=== PATIENT | male | born 1955 | race Caucasian/White ===

== ENCOUNTER → 2021-01-25 08:25 | Outpatient (REF) | payer OTHER, SELFPAY ==
--- NOTE | ~2021-01-25 | NM_ITS ---
Exercise Myocardial perfusion study Indication: Abnormal EKG to evaluate for myocardial ischemia Technique: The patient was brought in for an exercise perfusion study on 01/25/2021. Patient performed exercise as per Timi protocol and was injected 30 mCi of sestamibi was given intravenously one target HR was achieved. Images were obtained using the SPECT gamma camera interlaced with the gating device. Images were obtained in supine position. Resting perfusion study was performed on 01/26/2021. Patient was administered 30 mCi of sestamibi intravenously at rest. Images were then obtained in supine position. Images obtained with and without CT attenuation. Total DLP 129 mGy-cm. Images were processed with the software and compared side to side in short axis, horizontal long axis and vertical long axis views. Findings: The stress perfusion study showed non attenuated images show mildly reduced uptake in the basal and mid anterolateral wall of the LV myocardium. Remainder of the LV myocardium is normally perfused. Attenuation corrected images show mildly reduced uptake in the apex of the LV myocardium.. The gated study shows normal LV systolic function with calculated LVEF of 73%. LV cavity is normal in size. The gated study shows normal systolic wall thickening and contraction of all segments. There is no transient ischemic dilation. Resting study shows non attenuated images show normal uptake of radiotracer in all segments of LV myocardium. Impression corrected images show mildly reduced uptake in the apex of the LV myocardium.. Gating at rest reveals normal systolic wall motion with ejection fraction at 58%. The findings are consistent with no clear reversible defect on attenuated corrected images. Nonattenuated images show reversible defect and basal inferolateral wall, most likely soft tissue attenuation artifact. NM/NM florecita perf SPECT rest & str Impression: 1. Likely normal myocardial perfusion 2. Gated LVEF is 58% 3. Transient ischemic dilatation not present Stress EKG is negative for ischemia
--- NOTE | 2021-01-25 08:32 | CA_ITS ---
Acquisition Time: 2021-01-25 08:35:25 Total Exercise Time: 00:07:50 Test Indications: Abnormal ECG Medications: SEE CHART Protocol: ANNIE Max HR: 134 BPM 87% of Pred: 154 BPM Max BP: 164/090 mmHG Max Work Load: 9.8 METS Exercise stress test using Annie protocol, total of 7 min 50 sec. METS 9.80, TAPHR up to 86%. Pt tolerated well, denies any anginal sx. EKG with occ. PVC's. No ischemic changes seen during exercise or in recovery. Nuclear images to follow. Normotensive response to exercise. Test reviewed with Dr. Silver Referred By: Rafael Plascencia Overread By: Cara Keen NP
== END ==
LOC: HO.CARD 08:25
PROVIDERS: PCP Family Medicine; Visit Provider Internal Medicine Cardiovascular Disease
DX: R94.31 Abnormal electrocardiogram [ECG] [EKG] (principal); M79.602 Pain in left arm
CPT/HCPCS: 78452; 93016; 93017; 93018; A9500

== ENCOUNTER → 2021-02-15 11:18 | Outpatient (BNVA) | payer MEDICARE, SELFPAY | PROVIDERS: PCP Family Medicine; Referring Provider Family Medicine; Visit Provider Surgery | DX: K40.91 Unilateral inguinal hernia, without obstruction or gangrene, recurrent (principal) | CPT/HCPCS: 99212 ==

== ENCOUNTER 2021-02-28 11:19 | Outpatient (REF) | payer MEDICARE, SELFPAY ==
--- NOTE | ~2021-02-28 | US_ITS ---
EXAMINATION: US ABDOMEN COMPLETE CLINICAL INFORMATION: Abdominal pain. COMPARISON: CT of the abdomen and pelvis January 2007 TECHNIQUE: Real-time imaging of the abdominal viscera. FINDINGS: PANCREAS: Normal. ABDOMINAL AORTA: The proximal, mid, and distal segments are normal in caliber. INFERIOR VENA CAVA: Visualized portions are normal. LIVER: There is a 7 x 5 x 5 mm cyst in the left lobe and 1.3 x 0.9 x 1.2 cm cyst in the right lobe. The liver contour is normal. Parenchymal echogenicity is normal. There is no intrahepatic biliary duct dilatation seen. GALLBLADDER: Normal. The gallbladder is physiologically distended without evidence of stones, sludge, polyps, wall thickening or pericholecystic fluid. COMMON BILE DUCT: Normal in caliber measuring 0.4 cm in diameter. RIGHT KIDNEY: There is a 1.1 x 0.8 x 1.2 cm echogenic lesion in the upper pole of the right kidney questionable for an angiomyolipoma. No hydronephrosis. No renal calculi. The kidney measures 11.8 cm in maximum dimension. LEFT KIDNEY: There is a 1.6 x 1.4 x 1.6 cm cyst in the lower pole. No hydronephrosis. No renal calculi . The kidney measures 10.9 cm in maximum dimension. SPLEEN: Normal. The spleen measures 11.2 cm in maximum dimension. FREE FLUID: None. US/US abdomen complete IMPRESSION: Small liver and left renal cysts. 1 cm echogenic lesion in the right kidney questionable for an angiomyolipoma. This is not seen on previous CT from 2006. Follow-up CT or MRI of the kidneys should be considered.
== END 2021-02-28 11:20 | disposition home or self-care (01) ==
LOC: HO.US 11:19
PROVIDERS: Visit Provider Nurse Practitioner Primary Care
DX: R10.9 Unspecified abdominal pain (principal)
CPT/HCPCS: 76700

== ENCOUNTER 2021-03-05 06:03 | Day surgery (SDC) | payer MEDICARE, SELFPAY ==
[2021-02-26 15:50] VITALS: BMI 24.0
--- NOTE | 2021-02-27 10:32 | P.CONAN_ITS ---
Documented by User: Tammie Sifuentes 03/01/21 09:30 HPI - Anesthesia Eval Consult details Narrative: 66yo M for Right recurrent Hernia Repair Inguinal with mesh PMFSH Active Problems Active Problems: All Active Problems (Updated 02/26/21 @ 15:49 by Sammi Riggs) Recurrent right inguinal hernia (Acute) Past Medical History Medical History (Updated 03/05/21 @ 06:42 by Lori oMreland RN) Anxiety BPH (benign prostatic hyperplasia) COVID-19 vaccine series completed Depression Epilepsy Essential hypertension Heart murmur Kidney lesion Obstructive sleep apnea Family History Family History Father Prostate cancer Lung cancer Mother Breast cancer Surgical History Surgical History (Updated 02/26/21 @ 15:49 by Sammi Riggs) History of bilateral inguinal hernia repair History of colonoscopy History of excision of lesion (10/21/11) History of eyelid surgery History of prostate biopsy Social History Social History Are you a primary childcare center director to a significant other at home: No Do you presently have visiting nurse or other home services: No Alcohol intake: current Alcohol intake frequency: holidays/special occasions only Patient Tobacco Use Status: Never used Tobacco Use of substances other than those prescribed or required for medical reasons: No Have you been hit, kicked, punched, or otherwise hurt by someone within the past year? If so, by whom?: No Are you DNR?: No Advance Directives: No Advance Directives Information Provided: No Advance Directives on File: No Recently lost weight without trying: No Eating poorly because of decreased appetite: No Nutrition Risks: No Nutritional Risk Meds Allergies Allergy/AdvReac Type Severity Reaction Status Date / Time No Known Allergies Allergy Verified 03/05/21 06:09 Home Medications Medication Instructions Recorded Confirmed Last Taken Type amlodipine 5 mg tablet 5 mg PO DAILY 02/15/21 03/05/21 03/05/21 05:30 History aspirin 81 mg tablet,delayed 81 mg PO DAILY 02/15/21 02/26/21 Unknown History release emtricitabine 200 mg-tenofovir 1 tab PO DAILY 02/15/21 02/26/21 Unknown History alafenamide fumarate 25 mg tablet Exam Exam Date and Time: February 27, 2021 1032 Height,Weight and Vital Signs: Height 5 ft 11 in Weight 78.018 kg Narrative Narrative: NM florecita perf SPECT rest & str 01/2021 Impression: 1. Likely normal myocardial perfusion 2. Gated LVEF is 58% 3. Transient ischemic dilatation not present Stress EKG is negative for ischemia EKG 2018 SB @ 55 with SA LAD ECHO 09/2020 Nml LV function LVEF >70% Aortic valve is bicuspid. Mild AR. No No real change from previous echo (09/2019) Assessment and Plan Assessment Anesthesia Assessment: Chart Reviewed Documented by User: Hiral Jackson 03/05/21 07:06 PMFSH Past Medical History Medical History (Updated 03/05/21 @ 06:42 by Lori Moreland RN) Anxiety BPH (benign prostatic hyperplasia) COVID-19 vaccine series completed Depression Epilepsy Essential hypertension Heart murmur Kidney lesion Obstructive sleep apnea Family History Family History Father Prostate cancer Lung cancer Mother Breast cancer Surgical History Surgical History (Updated 02/26/21 @ 15:49 by Sammi Riggs) History of bilateral inguinal hernia repair History of colonoscopy History of excision of lesion (10/21/11) History of eyelid surgery History of prostate biopsy Social History Social History Are you a primary childcare center director to a significant other at home: No Do you presently have visiting nurse or other home services: No Alcohol intake: current Alcohol intake frequency: holidays/special occasions only Patient Tobacco Use Status: Never used Tobacco Use of substances other than those prescribed or required for medical reasons: No Have you been hit, kicked, punched, or otherwise hurt by someone within the past year? If so, by whom?: No Are you DNR?: No Advance Directives: No Advance Directives Information Provided: No Advance Directives on File: No Recently lost weight without trying: No Eating poorly because of decreased appetite: No Nutrition Risks: No Nutritional Risk Meds Allergies Allergy/AdvReac Type Severity Reaction Status Date / Time No Known Allergies Allergy Verified 03/05/21 06:09 Home Medications Medication Instructions Recorded Confirmed Last Taken Type amlodipine 5 mg tablet 5 mg PO DAILY 02/15/21 03/05/21 03/05/21 05:30 History aspirin 81 mg tablet,delayed 81 mg PO DAILY 02/15/21 02/26/21 Unknown History release emtricitabine 200 mg-tenofovir 1 tab PO DAILY 02/15/21 02/26/21 Unknown History alafenamide fumarate 25 mg tablet Exam Airway Mallampati Class: II TM Dist: >3cm Neck ROM: Full Heart: rrr Lungs: cta Assessment and Plan Assessment Anesthesia Assessment: Anesthesia Plan Discussed and Chart Reviewed Final Anesthetic Review NPO: Yes (Sip water with med) ASA Class: III Final Preanesthetic Review: No Changes in Pt Med Stat and Consent Obtained/Reviewed Patient Risk: Intermediate Procedure Risk: Intermediate Anesthetic Plan Anesthetic Plan: GA Disposition: Standard PACU
[2021-03-05] VITALS (8 sets, daily range): BP systolic 98–135; BP diastolic 50–85; PULSE 55–62; RESP 12–20; TEMP 36.4–37.2; O2SAT 96–98
--- NOTE | 2021-03-05 | ECG_ITS ---
Test Reason : HTN, murmur, ALEC, preop Blood Pressure : / mmHG Vent. Rate : 064 BPM Atrial Rate : 064 BPM P-R Int : 172 ms QRS Dur : 082 ms QT Int : 428 ms P-R-T Axes : 050 -35 050 degrees QTc Int : 441 ms Normal sinus rhythm Left axis deviation Minimal voltage criteria for LVH, may be normal variant Septal infarct , age undetermined Abnormal ECG When compared to the previous EKG of Criteria for septal infarct present. Referred By: Tammie Sifuentes Electronically Signed By:Louie Pacheco
[2021-03-05] MEDS: Lactated Ringers 1,000 ML 100 ML IVCONT (06:46)
--- NOTE | 2021-03-05 07:30 | MHC.SHP ---
Pre-Procedural Eval Section A The patient is an INPATIENT: No Changes since office visit: Yes Patient answered all questions; No Cold of Flu in the past 2 weeks, No New Medical Problems and No Changes in Medication The History & Physical has been completed within 30 days and I have reviewed it.: Yes Section B Chief Complaint: unilateral inguinal hernia Allergies: Allergies Allergy/AdvReac Type Severity Reaction Status Date / Time No Known Allergies Allergy Verified 03/05/21 06:09 Plan Diagnosis/Plan: Unchanged I have reviewed the history and physical and performed a pertinent physical examination on my patient. No changes have occurred unless specified.
--- NOTE | 2021-03-05 09:02 | P.OP_ITS ---
Operative Note Operative Note Date of Service: 03/05/21 Narrative: Preoperative diagnosis: Recurrent Right inguinal hernia Postoperative diagnosis: Same Procedure: Repair of recurrent right inguinal hernia with mesh Surgeon: David Alfredo MD Leather Heel Breaster: No physician Anesthesia: General LMA Indications for procedure: 66-year-old male presenting with a previous history of a bilateral laparoscopic hernia repair now presenting with a large lump in the right groin which this is in size with lifting and straining. On examination the patient has a large right inguinal hernia increases with Valsalva maneuvers and reduces with light pressure. Operative findings: Large indirect right inguinal hernia repaired with a medium PHS mesh Specimen: Hernia sac Estimated blood loss: 10 mL Complications: None Procedure details: Patient was brought to the OR and placed in a supine position. After administering general anesthesia the patient's abdomen was prepped with ChloraPrep and draped in a sterile fashion. A surgical time-out was called the consent confirmed. Patient received preoperative antibiotics and Venodyne boots were in place. Local anesthesia consisting of 0.25% Sensorcaine with epinephrine was then infiltrated over the right inguinal ligament. Incision was then made with a scalpel carried out through subcutaneous tissue. Incision was carried down past Jerad's fashion up to the external oblique aponeurosis. Additional anesthesia was infiltrated below the external oblique aponeurosis. This was then incised with a scalpel widened with the Metzenbaum scissors. Spermatic cord was then dissected free from the inguinal canal where there was some scar tissue associated with the previous repair. The floor of the inguinal canal was found to be intact without a hernia. Fibers of the cremasteric muscle were then and a hernia sac identified. This freed down to the internal ring. The sac was opened and a sliding component noted within the hernia sac. A pursestring was then placed into the sac and ligated. The redundant sac was excised and sent as a pathology specimen. The sac was then plicated to the internal oblique aponeurosis and muscle using the 0 Polysorb suture and a free needle. A medium PHS mesh was then obtained. The circular underlay was placed into the indirect space at the internal ring and deployed within the preperitoneal space. The overlay was then secured to the pubic tubercle, shelving edge of the inguinal ligament, and conjoined tendon using 0 Polysorb sutures. A slit was made at the mesh at the internal ring and wrapped around the spermatic cord at the internal ring. This was then secured to the shelving edge of the inguinal ligament using the 0 Polysorb suture. The internal ring was noted to be loose enough to allow the tip of an index finger to pass. Wounds were then irrigated and suctioned dry. External oblique aponeurosis was then reapproximated using a running 2 0 Polysorb suture. Additional local was infiltrated at this time into the subcutaneous tissue. Jerad's fascia and dermis reapproximated using interrupted 3-0 Polysorb sutures. Skin was then closed using a running subcuticular 4-0 Polysorb suture. Steri-Strips 2 x 2 gauze and Tegaderm were then applied. The patient tolerated the procedure well. Sponge, instrument, and needle counts were reported as correct. The patient was transferred to PACU in stable condition.
== END 2021-03-05 10:50 | disposition home or self-care (01) ==
PROVIDERS: PCP Nurse Practitioner Primary Care; Visit Provider Surgery
PROC: (CPT 49520; principal; 2021-03-05 07:30)
DX: K40.91 Unilateral inguinal hernia, without obstruction or gangrene, recurrent (principal); G40.909 Epilepsy, unspecified, not intractable, without status epilepticus; I10 Essential (primary) hypertension; G47.33 Obstructive sleep apnea (adult) (pediatric); N40.0 Benign prostatic hyperplasia without lower urinary tract symptoms; F32.9 Major depressive disorder, single episode, unspecified; Z79.82 Long term (current) use of aspirin; Z79.899 Other long term (current) drug therapy
CPT/HCPCS: 49520; 88302; 93005; C1781; J0690; J1100; J2250; J2405; J3010

== ENCOUNTER → 2021-03-13 09:53 | Outpatient (BNVA) | payer MEDICARE, SELFPAY | PROVIDERS: PCP Family Medicine; Referring Provider Family Medicine; Visit Provider Surgery | DX: Z48.815 Encounter for surgical aftercare following surgery on the digestive system (principal); Z87.19 Personal history of other diseases of the digestive system | CPT/HCPCS: 99212 ==

== ENCOUNTER → 2021-04-17 10:21 | Outpatient (BNVA) | payer MEDICARE, SELFPAY | PROVIDERS: PCP Family Medicine; Referring Provider Family Medicine; Visit Provider Surgery | DX: Z48.815 Encounter for surgical aftercare following surgery on the digestive system (principal); Z87.19 Personal history of other diseases of the digestive system | CPT/HCPCS: 99212 ==

== ENCOUNTER 2021-05-14 10:23 | Outpatient (REF) | payer MEDICARE, SELFPAY ==
--- NOTE | ~2021-05-14 | CT_ITS ---
EXAMINATION: CT ABDOMEN AND PELVIS WITHOUT AND WITH CONTRAST CLINICAL INFORMATION: Small liver and renal cysts. COMPARISON: US abdomen 02/28/2021. CT abdomen 01/30/2007. TECHNIQUE: Multidetector volumetric imaging was performed of the abdomen and pelvis before and after the IV administration of 85 mL of Omnipaque 350 intravenous contrast. Sagittal and coronal reformatted images were obtained on the technologist's workstation. This CT examination was performed using dose optimization techniques as appropriate, variously including the following: *Automated exposure control *Adjustment of mA and/or kV according to patient size (this includes techniques or standardized protocols for targeted exams where dose is matched to indication/reason for exam; i.e. extremities or head) *Use of iterative reconstruction technique DLP: 1297 mGy-cm FINDINGS: LUNG BASES: The visualized lung bases are unremarkable. LIVER, GALLBLADDER, AND BILIARY TREE: There are small scattered liver cysts, as noted on the prior ultrasound. There is no biliary duct dilatation. The gallbladder is unremarkable with no evidence of radiopaque gallstones, gallbladder wall thickening, or obvious pericholecystic inflammatory changes. PANCREAS: Unremarkable. SPLEEN: Unremarkable. ADRENAL GLANDS: Unremarkable. KIDNEYS AND URETERS: There is a small focal fatty lesion in the posterior aspect of the mid to upper pole of the right kidney. This could represent a small angiomyolipoma or perirenal fat extending into a focal scar. This may correspond to the ultrasound finding. There are no suspicious lesions in the right kidney. There is no hydronephrosis. There is a 1.6 cm hyperdense exophytic cyst involving the lower pole of left kidney corresponding to the simple-appearing cyst identified by ultrasound, consistent with a hemorrhagic cyst. There may be an additional tiny hemorrhagic cyst in the superior pole of the left kidney not clearly identified on the ultrasound. BLADDER: Unremarkable. GASTROINTESTINAL TRACT: There is scattered colonic diverticulosis without evidence of diverticulitis. The appendix is not clearly visualized. The small bowel and stomach are unremarkable. ABDOMINAL WALL: There is soft tissue thickening in the region of the right inguinal canal of uncertain significance. Consider postoperative change. LYMPH NODES: Normal. VASCULAR: Unremarkable. PELVIC VISCERA: There is an enlarged lobulated prostate gland. OSSEOUS STRUCTURES: There is a right convex lumbar scoliosis with [id number] multilevel degenerative disc disease. There is multilevel bilateral facet arthropathy. There is some mild osteoarthritis of both hips. There are no suspicious osseous lesions. CT/CT abdomen pelvis wo/w con IMPRESSION: 1. Small focal fatty lesion in the right kidney which may represent a small angiomyolipoma or perirenal fat extending into a focal scar, likely corresponding to the ultrasound finding. No suspicious right kidney lesions. 2. Hypodense left renal cysts. 3. Colonic diverticulosis without diverticulitis. 4. Soft tissue thickening in the region of the right inguinal canal of uncertain significance. Consider postoperative change. Correlate clinically. 5. Enlarged lobulated prostate gland.
[2021-05-14 12:20] LABS: Blood Urea Nitrogen 17 mg/dL (9-16); Estimated Glomerular Filt Rate > 60
[2021-05-14] MEDS: iohexoL 350 MG/ML 100 ML INFUS..BTL IV (13:33)
== END 2021-05-14 10:24 | disposition home or self-care (01) ==
LOC: HO.CT 10:23
PROVIDERS: PCP Family Medicine; Visit Provider Nurse Practitioner Primary Care
DX: N28.1 Cyst of kidney, acquired (principal); R93.421 Abnormal radiologic findings on diagnostic imaging of right kidney
CPT/HCPCS: 36415; 74178; 82565; 84520; Q9967

== ENCOUNTER 2022-03-14 17:40 | Outpatient (REF) | payer MEDICARE, SELFPAY | END 2022-03-14 17:41 | disposition home or self-care (01) | LOC: HO.LNP 17:40 | PROVIDERS: Visit Provider Internal Medicine | DX: Z13.89 Encounter for screening for other disorder (principal) | CPT/HCPCS: 87071 ==

== ENCOUNTER → 2022-08-26 13:45 | Outpatient (BNVA) | payer MEDICARE, SELFPAY | PROVIDERS: PCP Family Medicine; Visit Provider Physician Assistant | DX: Z01.818 Encounter for other preprocedural examination (principal); K63.5 Polyp of colon; R01.1 Cardiac murmur, unspecified | CPT/HCPCS: 99202 ==

== ENCOUNTER 2023-05-14 07:15 | Day surgery (SDC) | payer OTHER, SELFPAY ==
[2023-05-12 08:52] VITALS: BMI 24.5
--- NOTE | 2023-05-12 12:17 | P.CONAN_ITS ---
Documented by User: Tammie Sifuentes NP 05/12/23 12:17 HPI - Anesthesia Eval Consult details Narrative: 68yo M for Colonoscopy PMFSH Active Problems Active Problems: All Active Problems (Updated 08/26/22 @ 14:13 by Lela Anderson PA-C) Heart murmur (Acute) Colon polyps (Acute) Recurrent right inguinal hernia (Acute) Past Medical History Medical History Anxiety BPH (benign prostatic hyperplasia) Colon polyps COVID-19 vaccine series completed Depression Epilepsy Essential hypertension Heart murmur Kidney lesion Obstructive sleep apnea Family History Family History Father Prostate cancer Lung cancer Mother Breast cancer Surgical History Surgical History History of bilateral inguinal hernia repair History of colonoscopy History of excision of lesion (10/21/11) History of eyelid surgery History of prostate biopsy S/P right inguinal hernia repair (03/05/21) Social History Social History Household Members Other:: lives alone- no children Are you a primary emergency care attendant to a significant other at home: No Do you presently have visiting nurse or other home services: No Alcohol intake: current Alcohol intake frequency: holidays/special occasions only Patient Tobacco Use Status: Never used Tobacco Use of substances other than those prescribed or required for medical reasons: No Are you DNR?: No Advance Directives: No Advance Directives Information Provided: Yes Meds Allergies Allergy/AdvReac Type Severity Reaction Status Date / Time No Known Allergies Allergy Verified 08/26/22 13:48 Home Medications Medication Instructions Recorded Confirmed Last Taken Type amlodipine 5 mg tablet 5 mg PO DAILY 02/15/21 05/12/23 03/05/21 05:30 History finasteride 5 mg tablet 5 mg PO DAILY 08/26/22 05/12/23 Unknown History tamsulosin 0.4 mg capsule 0.4 mg PO DAILY 08/26/22 05/12/23 Unknown History Lactobacillus acidophilus 10 10,000 mmu cells PO DAILY 05/12/23 05/12/23 Unknown History billion cell capsule (Probiotic) flaxseed oil 1,000 mg capsule 1,000 mg PO DAILY 05/12/23 05/12/23 Unknown History sildenafil 100 mg tablet (Viagra) 100 mg PO DAILY PRN Sexual Activity 05/12/23 05/12/23 Unknown History simethicone 125 mg capsule 125 mg PO QID PRN Gastrointestinal 05/12/23 05/12/23 Unknown History Spasms Or Cramping Exam Exam Date and Time: May 12, 2023 1217 Height,Weight and Vital Signs: Height 5 ft 11 in Weight 79.832 kg Assessment and Plan Assessment Anesthesia Assessment: Chart Reviewed Documented by User: Elsi Raines MD 05/14/23 08:09 [facility] Past Medical History Medical History Anxiety BPH (benign prostatic hyperplasia) Colon polyps COVID-19 vaccine series completed Depression Epilepsy Essential hypertension Heart murmur Kidney lesion Obstructive sleep apnea Family History Family History Father Prostate cancer Lung cancer Mother Breast cancer Surgical History Surgical History History of bilateral inguinal hernia repair History of colonoscopy History of excision of lesion (10/21/11) History of eyelid surgery History of prostate biopsy S/P right inguinal hernia repair (03/05/21) History of Problems with Anesthesia: No Social History Social History Household Members Other:: lives alone- no children Are you a primary emergency care attendant to a significant other at home: No Do you presently have visiting nurse or other home services: No Alcohol intake: current Alcohol intake frequency: holidays/special occasions only Patient Tobacco Use Status: Never used Tobacco Use of substances other than those prescribed or required for medical reasons: No Are you DNR?: No Advance Directives: No Advance Directives Information Provided: Yes Meds Allergies Allergy/AdvReac Type Severity Reaction Status Date / Time No Known Allergies Allergy Verified 08/26/22 13:48 Home Medications Medication Instructions Recorded Confirmed Last Taken Type amlodipine 5 mg tablet 5 mg PO DAILY 02/15/21 05/12/23 03/05/21 05:30 History finasteride 5 mg tablet 5 mg PO DAILY 08/26/22 05/12/23 Unknown History tamsulosin 0.4 mg capsule 0.4 mg PO DAILY 08/26/22 05/12/23 Unknown History Lactobacillus acidophilus 10 10,000 mmu cells PO DAILY 05/12/23 05/12/23 Unknown History billion cell capsule (Probiotic) flaxseed oil 1,000 mg capsule 1,000 mg PO DAILY 05/12/23 05/12/23 Unknown History sildenafil 100 mg tablet (Viagra) 100 mg PO DAILY PRN Sexual Activity 05/12/23 05/12/23 Unknown History simethicone 125 mg capsule 125 mg PO QID PRN Gastrointestinal 05/12/23 05/12/23 Unknown History Spasms Or Cramping Exam Airway Mallampati Class: III (globally poor dentition) TM Dist: >3cm Neck ROM: Full Heart: RRR Lungs: CTA Assessment and Plan Assessment Anesthesia Assessment: Anesthesia Plan Discussed Final Anesthetic Review History of Problems with Anesthesia: No NPO: Yes ASA Class: III Final Preanesthetic Review: Meds/Allgs Chart Reviewed, Consent Obtained/Reviewed and Anes Risks/Benef Reviewed Patient Risk: Intermediate Procedure Risk: Low Anesthetic Plan Anesthetic Plan: MAC: Disposition: Standard PACU
[2023-05-14 07:22] VITALS: BMI 24.4
[2023-05-14 07:34] VITALS: BP 137/83; PULSE 71; RESP 16; TEMP 36.2; O2SAT 97
[2023-05-14] MEDS: Lactated Ringers 1,000 ML 100 ML IVCONT (07:44)
--- NOTE | 2023-05-14 08:32 | MHC.SHP ---
Pre-Procedural Eval Section A Date of Service: 05/14/23 Section B Chief Complaint: Polyp of colon Relevant Family History (Specify if Yes): No Relevant Social History: None Present Medications: see Short Stay Collaborative assessment Medical History: Significant History (Anxiety BPH (benign prostatic hyperplasia) Colon polyps COVID-19 vaccine series completed Depression Epilepsy Essential hypertension Heart murmur Kidney lesion Obstructive sleep apnea) History of Previous Operations: Relevant previous surgery/procedure and date(s) (History of bilateral inguinal hernia repair History of colonoscopy History of excision of lesion (10/21/11) History of eyelid surgery History of prostate biopsy S/P right inguinal hernia repair (03/05/21)) Allergies: Allergies Allergy/AdvReac Type Severity Reaction Status Date / Time No Known Allergies Allergy Verified 08/26/22 13:48 Review of Systems Sugical H&P ROS: Negative: Constitution, Cardiovascular, Respiratory, Neurological, Psychiatric, Hem-Onc, Allergic/Immunologic, Gastrointestinal, Genitourinary, Musculoskeletal, Integumentary, Endocrine and Eyes/Ears/Nose/Throat Exam Surgical H&P Exam: Normal: HEENT, Normal: Heart, Normal: Lungs, Normal: Extremities, Normal: Abdomen, Normal: Skin and Normal: Neurological Plan Diagnosis/Plan: Unchanged I have reviewed the history and physical and performed a pertinent physical examination on my patient. No changes have occurred unless specified. Time Spent With Patient Time: Total time managing care of this patient today ____ minutes.
--- NOTE | 2023-05-14 08:33 | P.OP_ITS ---
Operative Note Operative Note Date of Service: 05/14/23 Narrative: Operative Information Procedure Description: Colonoscopy Indication: hx of colon polyps Anesthesia: MAC COLONOSCOPY Instrument: Olympus variable stiffness pediatric scope 190L Colonoscopy Monitoring: Vital signs and clinical assessment, continuous EKG monitoring, Pulse oximetry, Carbon Dioxide monitoring and blood pressure monitoring were done throughout the procedure. Colon withdrawal time was 15 minutes. Procedure: The patient was placed in the left lateral decubitis position and pre-procedure medications were administered. After a digital rectal examination of the ano-rectum, the video colonoscope was inserted into the rectum and advanced through the colon to the cecum/TI. The colonoscope was slowly withdrawn in a retrograde panoramic fashion and the colon mucosa was carefully examined including a retroflexed view of the rectum. Findings and interventions are described below. Procedure Difficulty: difficult due to redundant colon Findings: Terminal Ileum-normal Cecum:normal Ascending Colon: scattered diverticula seen, 6-8 mm sessile polyp removed with cold snare, not retrieved Transverse Colon -normal Descending Colon: moderate diverticulosis Sigmoid Colon: moderate severe diverticula seen Rectum: Retroflexion with medium sized internal hemorrhoids, grade II Anorectum - normal Colon preparation: [place] Bowel Preparation Scale Right colon; 2 Transverse colon: 3 Left colon; 3 (0 = Unprepared colon segment with mucosa not seen due to solid stool that cannot be cleared. 1 = Portion of mucosa of the colon segment seen, but other areas of the colon segment not well seen due to staining, residual stool and/or opaque liquid. 2 = Minor amount of residual staining, small fragments of stool and/or opaque liquid, but mucosa of colon segment seen well. 3 = Entire mucosa of colon segment seen well with no residual staining, small fragments of stool or opaque liquid) Impression and Post Procedure Diagnosis: polyp internal hemorrhoids diverticular disease redundant colon Plan: High fiber diet leaflet Avoid straining at stool, epsom salts and sitz bath, anusol supps or cream Repeat Colonoscopy in 5-6 years due to hx of polyps or earlier if clinically indicated Above findings were reviewed with the patient and relevant handouts were provided if indicated.
[2023-05-14 09:15] VITALS: BP 107/66; PULSE 55; RESP 18; TEMP 36.1; O2SAT 97
[2023-05-14 09:30] VITALS: BP 117/71; PULSE 52; RESP 13; O2SAT 97
[2023-05-14 09:45] VITALS: BP 115/65; PULSE 55; RESP 12; TEMP 36.3; O2SAT 97
== END 2023-05-14 10:41 | disposition home or self-care (01) ==
PROVIDERS: PCP Family Medicine; Visit Provider Internal Medicine Gastroenterology
PROC: 0DJD8ZZ Inspection of Lower Intestinal Tract, Via Natural or Artificial Opening Endoscopic (ICD-10-PCS; CPT 45378; principal; 2023-05-14 08:30)
DX: Z12.11 Encounter for screening for malignant neoplasm of colon (principal); Z86.010 Personal history of colon polyps; K63.5 Polyp of colon; K57.30 Diverticulosis of large intestine without perforation or abscess without bleeding; K64.1 Second degree hemorrhoids; Q43.8 Other specified congenital malformations of intestine; I10 Essential (primary) hypertension; G40.909 Epilepsy, unspecified, not intractable, without status epilepticus; N40.0 Benign prostatic hyperplasia without lower urinary tract symptoms; N28.9 Disorder of kidney and ureter, unspecified; R01.1 Cardiac murmur, unspecified; G47.33 Obstructive sleep apnea (adult) (pediatric); F41.1 Generalized anxiety disorder; Z79.899 Other long term (current) drug therapy
CPT/HCPCS: 45385

== ENCOUNTER → 2023-05-14 07:15 | Outpatient (BNV) | payer OTHER, SELFPAY | PROVIDERS: PCP Family Medicine; Visit Provider Internal Medicine Gastroenterology | DX: Z86.010 Personal history of colon polyps (principal); D12.2 Benign neoplasm of ascending colon; K57.30 Diverticulosis of large intestine without perforation or abscess without bleeding; K64.1 Second degree hemorrhoids | CPT/HCPCS: 45385 ==

== ENCOUNTER 2023-05-29 08:56 | Outpatient (AMB) | payer MEDICARE, SELFPAY ==
--- NOTE | 2023-05-29 09:05 | A.OFFVIS_ITS ---
Intake Vital Signs 05/29/23 09:06 Height 5 ft 11 in Weight 175 lb BMI 24.4 BP 132/78 Blood Pressure Location Lt brachial Position Sitting Pulse 79 Intake Visit Reasons: S/p Colon- Mccann Intake Note: Patient follow up for colonoscopy results Patient denies any other GI issues. Pathology Laboratory Technologist Required: No Accompanied by: Self / Same As Patient Allergies No Known Allergies Allergy (Verified 05/29/23 09:05) Medication List - Last Reconciled 05/29/23 by Lela Anderson PA-C amlodipine 5 mg PO DAILY bisacodyl (Dulcolax (bisacodyl)) 10 mg (2 x 5 mg) PO ONCE 1 day finasteride 5 mg PO DAILY flaxseed oil 1,000 mg PO DAILY Lactobacillus acidophilus (Probiotic) 10,000 mmu cells PO DAILY polyethylene glycol 3350 (Miralax) 238 grams PO ONCE 1 day sildenafil (Viagra) 100 mg PO DAILY PRN simethicone 125 mg PO QID PRN tamsulosin 0.4 mg PO DAILY HPI HPI Comments History of Present Illness Details 68-year-old male personal history colon polyps follows up after recent colonoscopy with polypectomy. Tolerated procedure well No GI complaint A review procedure report, and recommended a Polyp not retrieved No nausea, vomiting, hematemesis, hematochezia fever chills PFSH Medical History (Updated 05/29/23 @ 09:13 by Lela Anderson PA-C) Colon polyps Kidney lesion COVID-19 vaccine series completed Anxiety Essential hypertension Obstructive sleep apnea BPH (benign prostatic hyperplasia) Depression Heart murmur Epilepsy Surgical History S/P right inguinal hernia repair (03/05/21) History of bilateral inguinal hernia repair History of eyelid surgery History of colonoscopy History of excision of lesion (10/21/11) History of prostate biopsy Family History Father Prostate cancer Lung cancer Mother Breast cancer Social History Household Members Other:: lives alone- no children Are you a primary pet care worker to a significant other at home: No Do you presently have visiting nurse or other home services: No Alcohol intake: current Alcohol intake frequency: holidays/special occasions only Patient Tobacco Use Status: Never used Tobacco Review of Systems Const All systems reviewed & are unremarkable except as noted in HPI and below Physical Exam Vital Signs: Last Vital Signs Pulse 79 05/29/23 09:06 BP 132/78 05/29/23 09:06 BMI result Body Mass Index 24.4 Const General: cooperative, healthy appearing and comfortable Orientation/consciousness: patient oriented x3 Limitations: no limitations Neuro General: patient oriented x3 Psych Appearance: grossly normal Mental Status: mental status grossly normal Speech and movement: Normal speech and movement present Affect: normal affect Attitude: cooperative Thought process: Normal thought process present Thought content: Normal thought content present Results Reviewed Results Reviewed: mpression and Post Procedure Diagnosis: polyp internal hemorrhoids diverticular disease redundant colon Plan: High fiber diet leaflet Avoid straining at stool, epsom salts and sitz bath, anusol supps or cream Repeat Colonoscopy in 5-6 years due to hx of polyps or earlier if clinically indicated Assessment & Plan Assessment & Plan (1) Colon polyps: Comment: Previous history colon polyps, Redundant colon, colon polyp not retrieved repeat colonoscopy 5 years Code(s): K63.5 - Polyp of colon (2) Diverticulosis of colon: Code(s): K57.30 - Diverticulosis of large intestine without perforation or abscess without bleeding (3) Hemorrhoids: Code(s): K64.9 - Unspecified hemorrhoids Patient Instructions: 68-year-old male personal history colon polyps also up after recent colonoscopy with polypectomy. Reviewed procedure report and recommendations. Polyp was not retrieved due to history repeat colonoscopy 5 years, sooner if indicated Diverticulosis/diverticulitis ER protocol Maintain high-fiber diet Avoid straining with hemorrhoids, may use rectal cream Encouraged to call questions or concerns Repeat the opportunity assist the care pleasant Coding Level of Care Code Est Pt Level 3 (62159) Diagnoses Colon polyps K63.5 Diverticulosis of colon K57.30 Hemorrhoids K64.9 Time Spent (min) 20
[2023-05-29 09:06] VITALS: BP 132/78; PULSE 79; BMI 24.4
== END 2023-05-29 10:34 | disposition home or self-care (01) ==
PROVIDERS: PCP Family Medicine; Visit Provider Physician Assistant
DX: K63.5 Polyp of colon (principal); K57.30 Diverticulosis of large intestine without perforation or abscess without bleeding; K64.9 Unspecified hemorrhoids
CPT/HCPCS: 99213

== ENCOUNTER → 2023-05-29 08:56 | Outpatient (BNVA) | payer MEDICARE, SELFPAY | PROVIDERS: PCP Family Medicine; Visit Provider Physician Assistant | DX: K63.5 Polyp of colon (principal); K57.30 Diverticulosis of large intestine without perforation or abscess without bleeding; K64.9 Unspecified hemorrhoids | CPT/HCPCS: 99212 ==

== ENCOUNTER 2024-03-26 10:41 | Outpatient (REF) | payer MEDICARE, SELFPAY ==
[2024-03-26 13:45] LABS: Alanine Aminotransferase 22 U/L (0-40); Albumin Level 4.5 g/dL (3.5-5.0); Alkaline Phosphatase 81 U/L (39-117); Aspartate Amino Transferase 24 U/L (5-37); Bilirubin Direct 0.2 mg/dL (0.0-0.5); Cholesterol 182 mg/dL (<200); HDL Cholesterol 43 mg/dL (>40); LDL Cholesterol Calculated 117 mg/dL (<100); Total Protein 7.2 g/dL (6.5-8.0); Triglycerides 113 mg/dL (<150)
[2024-03-26 14:04] LABS: TSH reflex Free T4 1.12 uIU/mL (0.32-4.0)
[2024-03-26 16:10] LABS: CT PCR NOT DETECTED (Not Detect.); NG PCR NOT DETECTED (Not Detect.)
[2024-03-29 04:53] LABS: Syphilis Screen Nonreactive (Nonreactive)
[2024-03-29 05:29] LABS: HIV AB/AG Nonreactive (Nonreactive); HIV Num 1 0.06 S/CO (0.00-0.99); ~HepC Num1 0.12 S/CO (0.00-0.79); ~Hepatitis C Antibody Nonreactive (Nonreactive)
== END 2024-03-26 10:42 | disposition home or self-care (01) ==
LOC: HO.HHCL 10:41
PROVIDERS: Visit Provider Family Medicine
DX: R25.1 Tremor, unspecified (principal); E78.5 Hyperlipidemia, unspecified; Z11.59 Encounter for screening for other viral diseases; Z20.2 Contact with and (suspected) exposure to infections with a predominantly sexual mode of transmission
CPT/HCPCS: 36415; 80061; 80076; 84443; 86780; 86803; 87389; 87491; 87591

== ENCOUNTER 2024-05-20 11:10 | Outpatient (REF) | payer MEDICARE, SELFPAY ==
[2024-05-20 12:12] LABS: Anion Gap 12 (12-20); Blood Urea Nitrogen 21 mg/dL (9-16); Calcium 9.5 mg/dL (8.4-10.2); Carbon Dioxide 27 mmol/L (22-29); Chloride 109 mmol/L (96-108); Estimated Glomerular Filt Rate > 60; Glucose Fasting 107 mg/dL (60-99); Potassium 4.2 mmol/L (3.3-5.1); Sodium 144 mmol/L (135-145)
[2024-05-20 12:20] LABS: Rheumatoid Factor < 13.0 IU/mL (<15.0)
[2024-05-20 12:32] LABS: Erythrocyte Sedimentation Rate 5 MM/HR (0-15)
[2024-05-24 11:49] LABS: Anti Nuclear Antibody Screen NEGATIVE (NEGATIVE)
== END 2024-05-20 11:11 | disposition home or self-care (01) ==
LOC: HO.LAB 11:10
PROVIDERS: PCP Family Medicine; Visit Provider Psychiatry & Neurology Neurology
DX: R25.1 Tremor, unspecified (principal); M19.90 Unspecified osteoarthritis, unspecified site
CPT/HCPCS: 36415; 80048; 85652; 86038; 86431

== ENCOUNTER 2024-08-16 13:42 | Outpatient (REF) | payer MEDICARE, SELFPAY ==
[2024-08-16 16:21] LABS: MANUAL DIFF FLAG NO
[2024-08-16 16:27] LABS: Basophils Absolute Auto 0.1 X10*3/uL (0.0-0.2); Eosinophils Absolute Auto 0.4 X10*3/uL (0.0-0.4); Eosinophils Percent Auto 4.6 % (0-4); Hematocrit 45.3 % (42.0-52.0); Imm Gran Abs Auto 0.12 X10*3/uL (0.00-0.03); Imm Gran Pct Auto 1.4 % (0.0-0.4); Lymphocytes Absolute Auto 1.8 X10*3/uL (1.2-4.9); Lymphocytes Percent Auto 20.6 % (20-40); Mean Corpuscular HGB Conc 33.1 g/dl (31.0-36.0); Mean Corpuscular Hemoglobin 31.3 pg (27.0-33.0); Mean Corpuscular Volume 94.4 fL (80.0-98.0); Mean Platelet Volume 10.3 fL (9.4-12.4); Monocytes Absolute Auto 0.8 X10*3/uL (0.1-1.2); Monocytes Percent Auto 8.8 % (2-11); Neutrophils Absolute Auto 5.5 x10*3/uL (2.0-8.3); Neutrophils Percent Auto 63.6 % (45-73); Platelet Count 270 X10*3/uL (160-400); Red Cell Distribution Width 12.6 % (11.0-16.0); White Blood Count 8.6 X10*3/uL (4.8-10.8)
[2024-08-16 17:14] LABS: Estimated Average Glucose 120 mg/dL; Hemoglobin A1C 152.9654 umol/L; Hemoglobin A1c % 5.8 % (<6.0); Total Hemoglobin (HGBA1C) 3788.6716 umol/L
[2024-08-16 17:29] LABS: Alanine Aminotransferase 45 U/L (0-40); Albumin Level 4.3 g/dL (3.5-5.0); Alkaline Phosphatase 93 U/L (39-117); Anion Gap 9 (12-20); Aspartate Amino Transferase 40 U/L (5-37); Bilirubin Total 0.6 mg/dL (0.0-1.0); Blood Urea Nitrogen 18 mg/dL (9-16); Calcium 9.3 mg/dL (8.4-10.2); Carbon Dioxide 28 mmol/L (22-29); Chloride 109 mmol/L (96-108); Estimated Glomerular Filt Rate > 60; Glucose Random 108 mg/dL (60-115); Potassium 4.1 mmol/L (3.3-5.1); Sodium 142 mmol/L (135-145); Total Protein 6.9 g/dL (6.5-8.0)
[2024-08-16 17:35] LABS: TSH reflex Free T4 0.93 uIU/mL (0.32-4.0)
[2024-08-17 04:21] LABS: HBS Num1 0.19 mIU/mL (0-7.99); HBc Num1 0.19 S/CO (0.00-0.79); HBsAGNum1 0.56 S/CO (0.00-0.99); HIV AB/AG Nonreactive (Nonreactive); HIV Num 1 0.06 S/CO (0.00-0.99); Hepatitis A Antibody IgM 0.13 Index (0-0.79); Hepatitis B Core Antibody Nonreactive (Nonreactive); Hepatitis B Surface Antigen Negative (Negative); ~HepC Num1 0.16 S/CO (0.00-0.79); ~Hepatitis A Antibody IgM Nonreactive (Nonreactive); ~Hepatitis B Surface Antibody NONREACTIVE (Nonreactive); ~Hepatitis C Antibody Nonreactive (Nonreactive)
[2024-08-19 11:29] LABS: Anti Nuclear Antibody Pattern Nuclear, Speckled; Anti Nuclear Antibody Screen POSITIVE (NEGATIVE); Anti Nuclear Antibody Titer 1:40 titer
== END 2024-08-16 13:43 | disposition home or self-care (01) ==
LOC: HO.HHCL 13:42
PROVIDERS: Visit Provider Internal Medicine
DX: Z13.1 Encounter for screening for diabetes mellitus (principal); Z11.4 Encounter for screening for human immunodeficiency virus [HIV]; R63.0 Anorexia
CPT/HCPCS: 36415; 80053; 83036; 84443; 85025; 86038; 86039; 86704; 86706; 86709; 86803; 87340; 87389

== ENCOUNTER 2024-08-19 13:19 | Outpatient (REF) | payer MEDICARE, SELFPAY ==
[2024-08-19 16:49] LABS: Alanine Aminotransferase 40 U/L (0-40); Albumin Level 4.4 g/dL (3.5-5.0); Alkaline Phosphatase 97 U/L (39-117); Amylase 59 U/L (28-100); Aspartate Amino Transferase 29 U/L (5-37); Bilirubin Direct 0.4 mg/dL (0.0-0.5); Bilirubin Total 1.1 mg/dL (0.0-1.0); Lipase 13 U/L (8-78); Total Protein 7.2 g/dL (6.5-8.0)
[2024-08-19 17:06] LABS: Prostate Specific Antigen Scr 3.92 ng/mL (<0.05-4.0)
== END 2024-08-19 13:20 | disposition home or self-care (01) ==
LOC: HO.HHCL 13:19
PROVIDERS: Visit Provider Family Medicine
DX: Z12.5 Encounter for screening for malignant neoplasm of prostate (principal); R79.89 Other specified abnormal findings of blood chemistry; R63.4 Abnormal weight loss
CPT/HCPCS: 36415; 80076; 82150; 83690; 84153

== ENCOUNTER 2024-08-27 08:54 | Outpatient (REF) | payer MEDICARE, SELFPAY | END 2024-08-27 08:55 | disposition home or self-care (01) | LOC: HO.US 08:54 | PROVIDERS: PCP Family Medicine; Visit Provider Family Medicine | DX: R63.4 Abnormal weight loss (principal); R79.89 Other specified abnormal findings of blood chemistry | CPT/HCPCS: 76700 ==

== ENCOUNTER 2024-09-10 15:53 | Outpatient (REF) | payer OTHER, SELFPAY ==
[2024-09-10 17:37] LABS: C Reactive Protein < 0.10 mg/dL (< or = 0.50); Iron 140 mcg/dL (45-160); Percent Iron Saturation 46 % (15-50); Total Iron Binding Capacity 302 mcg/dL (228-428); Unsaturated Iron Binding 162 ug/dL
[2024-09-10 17:52] LABS: Ferritin 160 ng/mL (20-250)
[2024-09-10 18:07] LABS: Folate 19.3 ng/mL (> or = 4.0); Vitamin B12 652 pg/mL (200-900)
[2024-09-13 11:39] LABS: Vitamin D 25-OH, D2 <4 ng/mL; Vitamin D 25-OH, D3 46 ng/mL; Vitamin D 25-OH, Total 46 ng/mL (30-100)
[2024-09-13 12:43] LABS: Alpha Fetoprotein 2.4 ng/mL (<6.1)
[2024-09-13 21:28] LABS: Ceruloplasmin 22 mg/dL (14-30)
[2024-09-14 06:58] LABS: Smooth Muscle Antibody <20 U (<20)
[2024-09-14 21:08] LABS: Transglutaminase IgA <1.0 U/mL
[2024-09-16 09:18] LABS: Mitochondrial Antibodies NEGATIVE (NEGATIVE)
[2024-09-17 01:38] LABS: FIB-ALT 21 U/L (9-46); FIB-Alpha-2-Macroglobulin 134 mg/dL (106-279); FIB-Apolipoprotein A1 140 mg/dL (94-176); FIB-GGT 15 U/L (3-70); FIB-Haptoglobin 137 mg/dL (43-212); FIB-Total Bilirubin 0.5 mg/dL (0.2-1.2); Liver Fibrosis Score 0.15; Liver Fibrosis Stage F0; Nec Inflam Act Grade A0; Nec Inflam Act Score 0.07; Reference ID 5271794
== END 2024-09-10 15:54 | disposition home or self-care (01) ==
LOC: HO.LAB 15:53
PROVIDERS: PCP Family Medicine; Visit Provider Nurse Practitioner Family
DX: R79.89 Other specified abnormal findings of blood chemistry (principal); K58.9 Irritable bowel syndrome, unspecified; D64.9 Anemia, unspecified; R19.7 Diarrhea, unspecified; R74.8 Abnormal levels of other serum enzymes; K76.0 Fatty (change of) liver, not elsewhere classified; R10.9 Unspecified abdominal pain; E55.9 Vitamin D deficiency, unspecified
CPT/HCPCS: 36415; 81596; 82105; 82306; 82390; 82607; 82728; 82746; 83540; 86015; 86140; 86364; 86381; 99202

== ENCOUNTER 2024-09-10 15:53 | Outpatient (AMB) | payer MEDICARE, SELFPAY ==
[2024-09-10 15:55] VITALS: BP 140/86; PULSE 76; O2SAT 96; BMI 25.1
--- NOTE | 2024-09-10 15:55 | A.OFFVIS_ITS ---
Vital Signs 09/10/24 15:55 Height 5 ft 11 in Weight 180 lb 5.41 oz BMI 25.1 BP 140/86 H Blood Pressure Location Rt brachial Position Sitting Pulse 76 Pulse Source Pulse Oximeter Pulse Oximetry (%) 96 Oxygen Delivery Method Room Air Intake Visit Reasons: poor appetite/Lela pt Intake Note: ESTABLISHED PATIENT Sukhjinder presents in office today for a scheduled FUV to re-est care. Meds and Allergies reviewed? Y No recent or relevant surgeries? N Any significant concerns or new changes? Prior JM pt. Abnormal W/L and Loss of appetite. Pharmacy verified? [facility] Required: No Allergies No Known Allergies Allergy (Verified 09/10/24 15:55) HPI HPI poor appetite/Lela pt: Details: LAST VISIT WITH CHINMAY VIVAS 05/29/2023 (1) Colon polyps: Comment: Previous history colon polyps, Redundant colon, colon polyp not retrieved repeat colonoscopy 5 years Code(s): K63.5 - Polyp of colon (2) Diverticulosis of colon: Code(s): K57.30 - Diverticulosis of large intestine without perforation or abscess without bleeding (3) Hemorrhoids: Code(s): K64.9 - Unspecified hemorrhoids Patient Instructions: 68-year-old male personal history colon polyps also up after recent colonoscopy with polypectomy. Reviewed procedure report and recommendations. Polyp was not retrieved due to history repeat colonoscopy 5 years, sooner if indicated Diverticulosis/diverticulitis ER protocol Maintain high-fiber diet Avoid straining with hemorrhoids, may use rectal cream Encouraged to call questions or concerns Repeat the opportunity assist the care pleasant TODAY'S VISIT Patient previously seen by Chinmay VIVAS. Provider no longer in the practice. Patient was referred back to us for elevated liver enzymes and abdominal pain. Patient was sent by PCP for ultrasound that showed no acute findings except for increase echogenicity of the liver with few liver cysts that remain the same. Patient reports that he has no appetite, lost weight. Weight compared with office visit from last year in May where patient weight 176 lb and today patient weighs 180 lb. Patient describes the pain as more general whole like pain abdominal bloating. Occasional constipation. Patient reports that he is not drinking fluids as he is afraid that he will be going to the bathroom a lot. Patient reports worsening urinary urgency at night time. Patient seen Urology in the past. Patient states that he saw Dr. Harris few years ago, however he has not followed up with anyone since. Patient reports that he took Flomax in the past, however it decreased his libido and he did not want to take it anymore. Patient denies any nausea or vomiting. Denies any melena, hematochezia, unintentional weight loss or ribbon like stools. Patient denies any dyspepsia, dysphagia or odynophagia. Patient had colonoscopy in April of 2023 [facility] Medical History Colon polyps Kidney lesion COVID-19 vaccine series completed Anxiety Essential hypertension Obstructive sleep apnea BPH (benign prostatic hyperplasia) Depression Heart murmur Epilepsy Surgical History S/P right inguinal hernia repair (03/05/21) History of bilateral inguinal hernia repair History of eyelid surgery History of colonoscopy History of excision of lesion (10/21/11) History of prostate biopsy Family History Father Prostate cancer Lung cancer Mother Breast cancer Social History Household Members Other:: lives alone- no children Are you a primary wound care coordinator to a significant other at home: No Do you presently have visiting nurse or other home services: No Alcohol intake: current Alcohol intake frequency: holidays/special occasions only Patient Tobacco Use Status: Never used Tobacco Review of Systems Const Denies weight gain and Denies weight loss ENT Reports no additional complaints, Denies dysphagia and Denies odynophagia Card Reports no additional complaints Resp Reports no additional complaints GI Denies abdominal pain, Denies belching, Denies melena, Denies bloating, Denies change in bowel habits, Denies dysphagia, Denies excessive flatus, Denies dyspepsia, Denies heartburn, Denies diarrhea, Denies loose stools, Denies nausea, Denies odynophagia and Denies vomiting Reports nocturia Musc Reports no additional complaints Neuro Reports no additional complaints Psych Reports no additional complaints Endo Reports no additional complaints Physical Exam Vital Signs: Last Vital Signs Pulse 76 09/10/24 15:55 BP 140/86 H 09/10/24 15:55 Pulse Ox 96 09/10/24 15:55 Oxygen Delivery Method Room Air 09/10/24 15:55 BMI result Body Mass Index 25.1 Const General: healthy appearing, no acute distress and well developed Nutritional Appearance: well nourished Orientation/consciousness: patient oriented x3 Resp Effort & Inspection: normal respiratory effort, able to speak in complete sentences, no tracheal deviation and symmetric chest movement Auscultation: clear to auscultation bilaterally Cardio Rate: regular rate GI Inspection: Yes normal to inspection and No distended Palpation (GI): Soft to palpation, not firm, nontender and No hepatosplenomegaly present Auscultation: normal bowel sounds General: Yes no CVA tenderness Back/Spine/Pelvis Back: no CVA tenderness Skin General skin exam: elasticity normal, turgor normal and dry skin Neuro General: patient oriented x3 Psych Appearance: grossly normal Mental Status: mental status grossly normal Results Reviewed Results Reviewed: CT OF ABDOMEN AND PELVIS 04/2021 LIVER, GALLBLADDER, AND BILIARY TREE: There are small scattered liver cysts, as noted on the prior ultrasound. There is no biliary duct dilatation. The gallbladder is unremarkable with no evidence of radiopaque gallstones, gallbladder wall thickening, or obvious pericholecystic inflammatory changes. ABDOMINAL ULTRASOUND 08/27/2024 1. Increased echogenicity of the liver parenchyma, this can be seen in the setting of hepatic steatosis or liver parenchymal disease. 2. There are small liver cysts, and left renal cysts no follow-up imaging is indicated. 3. Ultrasound has limited assessment for possible abdominal mass, if patient remain symptomatic consider correlation with follow-up cross-sectional imaging CT scan or MRI. Assessment & Plan Assessment & Plan (1) Diverticulosis of colon: Code(s): K57.30 - Diverticulosis of large intestine without perforation or abscess without bleeding Category: Medical (2) Urinary urgency: Code(s): R39.15 - Urgency of urination (3) Benign prostatic hyperplasia (BPH) with urinary urgency: Code(s): N40.1 - Benign prostatic hyperplasia with lower urinary tract symptoms; R39.15 - Urgency of urination (4) Diverticulosis: Code(s): K57.90 - Diverticulosis of intestine, part unspecified, without perforation or abscess without bleeding (5) Transaminitis: Code(s): R74.01 - Elevation of levels of liver transaminase levels (6) Liver cyst: Code(s): K76.89 - Other specified diseases of liver Plan We will rule out any autoimmune disorders to explain the increase echogenicity to his liver. Low-fat, low carb, low-salt and high-protein diet recommended. Patient is not moving his bowels very well. Increase fluid intake and activity to promote better bowel motility. Patient does report increased urinary frequency specially at night time, previously seen by Urology, currently has not been following up with anyone. 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 Referral will be sent to urology. Patient has tried Flomax in the past and stopped as his libido decreased. Patient will follow-up in the office in 3 months, sooner on as needed basis. Patient will call us if he will have abdominal pain, cramping, fever or chills. He is agreeable to current plan of care and verbalizes understanding of instructions. He was given the opportunity to ask questions and all questions answered. Thank you for allowing me to participate in his care Orders: Orders Smooth Muscle Antibody 09/10/24 R79.89 - Other specified abnormal findings of blood chemistry C Reactive Protein 09/10/24 K58.9 - Irritable bowel syndrome, unspecified Ceruloplasmin 09/10/24 R79.89 - Other specified abnormal findings of blood c hemistry IRON PROFILE 09/10/24 D64.9 - Anemia, unspecified Ferritin 09/10/24 R74.8 - Abnormal levels of other serum enzymes Vitamin B12 and Folate 09/10/24 R19.7 - Diarrhea, unspecified Alpha Fetoprotein 09/10/24 R79.89 - Other specified abnormal findings of blood chemistry Liver Fibrosis Pnl 09/10/24 K76.0 - Fatty (change of) liver, not elsewhere classified Transglutaminase IgA 09/10/24 R10.9 - Unspecified abdominal pain Vitamin D 25-OH (D2 and D3) 09/10/24 E55.9 - Vitamin D deficiency, unspecified Mitochondrial Antibody 09/10/24 R79.89 - Other specified abnormal findings of b lood chemistry US abdomen qiu w elastography 09/10/24 K76.0 - Fatty (change of) liver, not elsewhere classified Referrals Urology Referral [id number] - Personal history of other specified conditions Coding Level of Care Code New Pt Level 4 (15099) Diagnoses Diverticulosis of colon K57.30 Urinary urgency R39.15 Benign prostatic hyperplasia (BPH) with urinary urgency N40.1; R39.15 Diverticulosis K57.90 Transaminitis R74.01 Liver cyst K76.89 Time Spent (min) 40 Comment 25 minutes spent with patient and additional 15 minutes spent reviewing his records
== END 2024-09-10 16:46 | disposition home or self-care (01) ==
PROVIDERS: PCP Family Medicine; Visit Provider Nurse Practitioner Family
DX: K57.30 Diverticulosis of large intestine without perforation or abscess without bleeding (principal); K57.90 Diverticulosis of intestine, part unspecified, without perforation or abscess without bleeding; R74.01 Elevation of levels of liver transaminase levels; K76.89 Other specified diseases of liver; R39.15 Urgency of urination; N40.1 Benign prostatic hyperplasia with lower urinary tract symptoms
CPT/HCPCS: 99204

== ENCOUNTER 2025-01-28 10:03 | Outpatient (REF) | payer OTHER, SELFPAY ==
--- NOTE | ~2025-01-28 | XR_ITS ---
EXAMINATION: XR CHEST 2 VIEWS HISTORY: Patient with 6-week duration of intermittent cough COMPARISON: There are no prior studies for comparison. FINDINGS: PA and lateral views of the chest are submitted. The lungs are expanded and clear. There is no pleural effusion, pneumothorax, or pulmonary vascular congestion. The heart is normal in size. There is scoliosis and degenerative disc disease of the spine. XR/XR chest 2V IMPRESSION: Clear lungs. Electronically signed by: Beto Hughes MD 01/28/2025 10:31 AM EDT
== END 2025-01-28 10:04 | disposition home or self-care (01) ==
LOC: HO.HHCX 10:03
PROVIDERS: PCP Family Medicine; Visit Provider Family Medicine
DX: R05.2 Subacute cough (principal)
CPT/HCPCS: 71046

== ENCOUNTER → 2025-01-28 10:05 | Outpatient (BNV) | payer OTHER, SELFPAY | PROVIDERS: PCP Family Medicine; Visit Provider Radiology Diagnostic Radiology | DX: R05.9 Cough, unspecified (principal) | CPT/HCPCS: 71046 ==

== ENCOUNTER 2025-01-28 10:31 | Outpatient (REF) | payer OTHER, SELFPAY ==
[2025-01-28 11:29] LABS: MANUAL DIFF FLAG NO
[2025-01-28 11:54] LABS: Basophils Absolute Auto 0.1 X10*3/uL (0.0-0.2); Basophils Percent Auto 0.6 % (0-2); Eosinophils Absolute Auto 0.5 X10*3/uL (0.0-0.4); Eosinophils Percent Auto 4.6 % (0-4); Hematocrit 42.8 % (42.0-52.0); Hemoglobin 14.2 g/dl (14.0-18.0); Imm Gran Abs Auto 0.05 X10*3/uL (0.00-0.03); Imm Gran Pct Auto 0.5 % (0.0-0.4); Lymphocytes Absolute Auto 1.4 X10*3/uL (1.2-4.9); Lymphocytes Percent Auto 12.7 % (20-40); Mean Corpuscular HGB Conc 33.2 g/dl (31.0-36.0); Mean Corpuscular Hemoglobin 30.9 pg (27.0-33.0); Mean Corpuscular Volume 93.2 fL (80.0-98.0); Mean Platelet Volume 10.5 fL (9.4-12.4); Monocytes Absolute Auto 1.2 X10*3/uL (0.1-1.2); Monocytes Percent Auto 10.8 % (2-11); Neutrophils Absolute Auto 7.5 x10*3/uL (2.0-8.3); Neutrophils Percent Auto 70.8 % (45-73); Platelet Count 220 X10*3/uL (160-400); Red Blood Count 4.59 X10*6/uL (4.60-5.80); Red Cell Distribution Width 13.1 % (11.0-16.0); White Blood Count 10.6 X10*3/uL (4.8-10.8)
[2025-01-28 12:40] LABS: Alanine Aminotransferase 25 U/L (0-40); Albumin Level 4.1 g/dL (3.5-5.0); Alkaline Phosphatase 89 U/L (39-117); Anion Gap 10 (12-20); Aspartate Amino Transferase 24 U/L (5-37); Bilirubin Total 0.6 mg/dL (0.0-1.0); Blood Urea Nitrogen 21 mg/dL (9-16); Calcium 9.1 mg/dL (8.4-10.2); Carbon Dioxide 29 mmol/L (22-29); Chloride 108 mmol/L (96-108); Estimated Glomerular Filt Rate > 60; Glucose Random 84 mg/dL (60-115); Potassium 3.8 mmol/L (3.3-5.1); Sodium 143 mmol/L (135-145); Total Protein 6.8 g/dL (6.5-8.0)
[2025-01-28 12:45] LABS: TSH reflex Free T4 0.93 uIU/mL (0.32-4.0)
[2025-01-28 14:32] LABS: Adenovirus PCR Not Detected (Not Detect.); Bordetella parapertussis PCR Not Detected (Not Detect.); Bordetella pertussis PCR Not Detected (Not Detect.); Chlamydia pneumoniae PCR Not Detected (Not Detect.); Coronavirus 229E PCR Not Detected (Not Detect.); Coronavirus HKU1 PCR Not Detected (Not Detect.); Coronavirus NL63 PCR Not Detected (Not Detect.); Coronavirus OC43 PCR Not Detected (Not Detect.); Human metapneumovirus PCR Not Detected (Not Detect.); Influenza A PCR Not Detected (Not Detect.); Influenza B PCR Not Detected (Not Detect.); Mycoplasma pneumoniae PCR Not Detected (Not Detect.); Parainfluenza 1 PCR Not Detected (Not Detect.); Parainfluenza 2 PCR Not Detected (Not Detect.); Parainfluenza 3 PCR Not Detected (Not Detect.); Parainfluenza 4 PCR Not Detected (Not Detect.); RSV PCR Not Detected (Not Detect.); Rhino/Enterovirus PCR Not Detected (Not Detect.)
[2025-01-28 14:34] LABS: Influenza A H1 PCR Not Detected (Not Detect.); Influenza A H1-2009 PCR Not Detected (Not Detect.); Influenza A H3 PCR Not Detected (Not Detect.); SARS-CoV-2 PCR Not Detected (Not Detect.)
[2025-01-29 14:43] LABS: A. Phagocytphilium DNA,RT-PCR NOT DETECTED (NOT DETECTED); Babesia Microti DNA, RT-PCR NOT DETECTED (NOT DETECTED); Borrelia Miyamotoi,DNA RT-PCR NOT DETECTED (NOT DETECTED); E.Chaffeensis DNA RT-PCR NOT DETECTED (NOT DETECTED); Lyme(Borrelia ssp)DNA RT-PCR NOT DETECTED (NOT DETECTED)
== END 2025-01-28 10:32 | disposition home or self-care (01) ==
LOC: HO.HHCL 10:31
PROVIDERS: Visit Provider Family Medicine
DX: R05.2 Subacute cough (principal); R53.83 Other fatigue
CPT/HCPCS: 36415; 71046; 80053; 84443; 85025; 87468; 87469; 87478; 87484; 87633; 87798

== ENCOUNTER 2025-03-11 14:13 | Outpatient (AMB) | payer OTHER, SELFPAY ==
--- NOTE | 2025-03-11 15:05 | MHC.OFFVIS ---
Intake Visit Reasons: erectile dysfunction Intake Note: New patient presents today for initial visit for erectile dysfunction, and complains of BPH symptoms Urology Medication:Sildenafil, Tadalafil Blood Thinner:None Antibiotic Allergies:None PVR:34ml Allergies No Known Allergies Allergy (Verified 03/11/25 15:06) Medication List - Last Reconciled 03/11/25 by Effie Foster MD amlodipine 5 mg PO DAILY flaxseed oil 1,000 mg PO DAILY Lactobacillus acidophilus (Probiotic) 10,000 mmu cells PO DAILY sildenafil (Viagra) 100 mg PO DAILY PRN HPI Comments Details: 03/11/25 History of Present Illness - The patient is a 70-year-old male presenting with erectile dysfunction. - Erectile dysfunction has been a concern for the patient, who has tried generic tadalafil (Cialis) 20 mg, which was somewhat helpful but did not improve libido. - The patient reports a lack of energy and libido, which has not been addressed with previous medications. - Blood work in January did not include testosterone levels, which will be ordered during this visit. - The patient has a history of benign prostatic hyperplasia, previously managed with tamsulosin (Flomax), which he discontinued due to adverse effects on his libido. - The patient experiences nocturia, urinating 5 to 6 times per night, and reports a weak urinary stream. (AUA/BPH score 30) - A PSA screening in August showed a level of 3.92, which is at the upper limits of normal for his age. - The patient has a family history of prostate cancer; his father was diagnosed in his mid-60s and treated with radiation and hormones. - The patient states he underwent a prostate biopsy approximately 10 years ago due to elevated PSA levels, which returned normal results. Results - PSA level: 3.92 (August,) - Abdominal ultrasound: Right kidney negative for stones, left kidney with small septated cyst, negative for stones (08/27/24) Discussion Notes I discussed with the patient the management options for erectile dysfunction and BPH, including the use of daily low-dose tadalafil, We reviewed the importance of checking testosterone levels and other hormones to assess overall health. Digital rectal examination today- Prostate palpated, smooth mild to mod enlarged, no hard nodules palpated. The patient was informed about the follow-up plan, including a bladder/prostate US and rechecking PSA levels in six months. [facility] Medical History Colon polyps Kidney lesion COVID-19 vaccine series completed Anxiety Essential hypertension Obstructive sleep apnea BPH (benign prostatic hyperplasia) Depression Heart murmur Epilepsy Surgical History S/P right inguinal hernia repair (03/05/21) History of bilateral inguinal hernia repair History of eyelid surgery History of colonoscopy History of excision of lesion (10/21/11) History of prostate biopsy Family History Father Prostate cancer Lung cancer Mother Breast cancer Social History Household Members Other:: lives alone- no children Are you a primary nonfarm animal caretaker to a significant other at home: No Do you presently have visiting nurse or other home services: No Alcohol intake: current Alcohol intake frequency: holidays/special occasions only Patient Tobacco Use Status: Never used Tobacco Review of Systems Const All systems reviewed & are unremarkable except as noted in HPI and below Reports no additional complaints Eyes Reports no additional complaints ENT Reports no additional complaints Card Reports no additional complaints Resp Reports no additional complaints GI Reports no additional complaints Reports as per HPI Musc Reports no additional complaints Skin/Breast Reports system reviewed and no additional complaints, except as documented Neuro Reports no additional complaints Psych Reports no additional complaints Endo Reports no additional complaints Sawyer/Lymph Reports no additional complaints Aller/Immun Reports no additional complaints Physical Exam Const General: healthy appearing, no acute distress and well developed Orientation/consciousness: patient oriented x3 HEENT Head: Yes normocephalic and Yes atraumatic Eyes Conjunctivae: conjunctivae normal Neck Neck: Yes normal visual inspection Chest Chest palpation & inspection: normal inspection of the chest Resp Effort & Inspection: normal respiratory effort GI Inspection: Yes normal to inspection Other: Prostate Exam: smooth mild to moderately enlarged, no hard nodules palpated Neuro General: patient oriented x3 Psych Appearance: grossly normal Affect: normal affect Results Reviewed Results Reviewed: Date of Service: 08/27/24 US ABDOMEN COMPLETE CLINICAL INFORMATION: Elevated LFTs with anorexia and unintentional weight loss. COMPARISON: CT abdomen and pelvis 05/14/2021. Ultrasound abdomen complete 02/28/2021. TECHNIQUE: Real-time imaging of the abdominal viscera. FINDINGS: PANCREAS: Visualized portions are unremarkable. ABDOMINAL AORTA: Partially obscured by bowel gas. There are atheromatous plaques of the aorta. INFERIOR VENA CAVA: Visualized portions are normal. LIVER: The liver is normal in size. The liver contour is normal. Increased echogenicity of the liver parenchyma, this can be seen in the setting of hepatic steatosis or liver parenchymal disease. There are liver cysts left lobe measure up to 9 mm and 10 mm, right lobe measure up to 8 mm. There is no intrahepatic biliary duct dilatation seen. GALLBLADDER: The gallbladder is physiologically distended without evidence of stones, sludge, polyps, wall thickening or pericholecystic fluid. COMMON BILE DUCT: Normal in caliber measuring 0.5 cm in diameter. RIGHT KIDNEY: No hydronephrosis or renal calculi. The kidney measures 11.4 cm in maximum dimension. LEFT KIDNEY: No hydronephrosis or renal calculi. The kidney measures 11.1 cm in maximum dimension. Cyst with septation upper pole 1.3 cm,. Lower pole obscured by bowel gas. These are commonly benign, no follow-up imaging is indicated. SPLEEN: The spleen measures 11.0 cm in maximum dimension. FREE FLUID: None. IMPRESSION: 1. Increased echogenicity of the liver parenchyma, this can be seen in the setting of hepatic steatosis or liver parenchymal disease. 2. There are small liver cysts, and left renal cysts no follow-up imaging is indicated. 3. Ultrasound has limited assessment for possible abdominal mass, if patient remain symptomatic consider correlation with follow-up cross-sectional imaging CT scan or MRI. Assessment & Plan Assessment & Plan (1) Erectile dysfunction: Code(s): N52.9 - Male erectile dysfunction, unspecified Category: Medical (2) BPH loc w urin obs/LUTS: Code(s): N40.1 - Benign prostatic hyperplasia with lower urinary tract symptoms Category: Medical (3) Low libido: Code(s): R68.82 - Decreased libido Category: Medical Plan Plan - Prescribe daily low-dose tadalafil for potential benefits for benign prostatic hyperplasia and ED. - Check testosterone levels and other relevant hormones to assess the underlying cause of erectile dysfunction. - Schedule a bladder and prostate US. - Recheck PSA levels in six months to monitor prostate health. - Discuss the use of GoodRx coupons to manage the cost of tadalafil if insurance does not cover it. Orders: Orders Lutenizing Hormone Today R68.82 - Decreased libido TSH reflex Free T4 Today R68.82 - Decreased libido Free T4 (Free Thyroxine) Today R68.82 - Decreased libido Follicle Stimulating Hormone Today R68.82 - Decreased libido Testosterone, Free/Total Today R68.82 - Decreased libido Prostate Specific Antigen Today R68.82 - Decreased libido US bladder 03/11/25 R68.82 - Decreased libido Medications: New tadalafil (Cialis) 5 mg PO DAILY 90 tabs 2RF N40.1 - Benign prostatic hyperplasia with lower urinary tract symptoms Patient Instructions: The patient had an opportunity to ask questions regarding treatment plan. The patient expressed understanding and agreement with the above treatment plan. The patient is aware they should contact our office by phone for worsening of their current condition or the appearance of new symptoms. Compliance is encouraged with any medications and followup testing that is ordered. It is a privilege to be allowed the opportunity to participate in the urologic care of your patient. If you have any questions or concerns regarding treatment for the above conditions please do not hesitate to contact me. The office telephone contact is [phone]. This note is constructed in part using voice recognition software. While every effort has been made to ensure accuracy consumer safety inspector errors may have been included. Yours sincerely, Effie Foster MD Scribe Plan - Not visible on output: Patient was informed and verbally consented to the use of an ambient scribe for clinic note documentation during this visit. Coding Level of Care Code New Pt Level 4 (13803) Diagnoses Erectile dysfunction N52.9 BPH loc w urin obs/LUTS N40.1 Low libido R68.82 AUA Symptom Score AUA Incomplete emptying - It does not feel like I empty my bladder all the way.: 3 - About half the time Frequency - I have to go again less than two hours after I finish urinating.: 5 - Almost always Intermittency - I stop and start again several times when I urinate.: 3 - About half the time Urgency - It is hard to wait when I have to urinate.: 5 - Almost always Weak stream - I have a weak urinary stream.: 4 - More than half the time Straining - I have to push or strain to begin urination.: 5 - Almost always Nocturia - I get up to urinate after I go to bed until the time I get up in the morning.: 5 time or more AUA Symptom Score: 30 Quality of life due to urinary symptoms: If you were to spend the rest of your life with your urinary condition the way it is now, how would you feel about that?: Unhappy Source: Kota SOLORZANO, Freddy GOLDEN Jr, O'Susan MP, et al, and the Measurement Committee of the [employer] [place] [employer]. The [place] [employer] symptom index for benign prostatic hyperplasia. J Urol. 1992; 148: 0704-0081. Copyright 1992 [employer] [place] [employer] IIEF-5 Questionnaire IIEF-5 How do you rate your confidence that you could get and keep an erection?: 2-Low When you had erections with sexual stimulation, how often were your erections hard enough for penetration?: Most times(much more than half the time) During sexual intercourse, how often were you able to maintain your erection after your had penetrated(entered) your partner?: Almost never/never During sexual intercourse, how difficult was it to maintain your erection to completion of intercourse?: Extremely Difficult When you attempted sexual intercourse, how often was it satisfactory for you?: Almost never/never IIEF-5 Score IIEF-5 Score: 9
== END 2025-03-11 15:58 | disposition home or self-care (01) ==
LOC: HO.HUSH 14:13
PROVIDERS: PCP Family Medicine; Visit Provider Urology
DX: N52.9 Male erectile dysfunction, unspecified (principal); N40.1 Benign prostatic hyperplasia with lower urinary tract symptoms; R68.82 Decreased libido
CPT/HCPCS: 99204

== ENCOUNTER → 2025-03-11 14:13 | Outpatient (BNVA) | payer OTHER, SELFPAY | PROVIDERS: PCP Family Medicine; Visit Provider Urology | DX: N40.1 Benign prostatic hyperplasia with lower urinary tract symptoms (principal); N13.8 Other obstructive and reflux uropathy; N52.9 Male erectile dysfunction, unspecified; R68.82 Decreased libido; Z80.42 Family history of malignant neoplasm of prostate | CPT/HCPCS: 99202 ==

== ENCOUNTER 2025-03-12 08:36 | Outpatient (REF) | payer OTHER, SELFPAY ==
--- OUTSIDE RECORDS SUMMARY | 2025-03-12 08:39 | XMS_ITS | Encounter Summary ---
Author Organization [facility] Address [address] [facility] 7t [place] [address] Care Team Providers Care Transformer Assembly Supervisor Name Role Phone Kiana, Génesis REDD Primary Care Provider [phone] Lela Anderson Unavailable Shruti Burton MD Unavailable Rafael Plascencia MD Unavailable [phone] Cara Keen Unavailable Kulwinder Salmon MD Unavailable [phone] Reason for Visit * Reason Onset Date Comments antibiotic pre treatment 06/06/2023 Encounter Details Date Type Department Care Team (Late st Contact Info) Description 06/06/2023 Telephone [facility] ADULT DENTAL [address] [place] [address] Sandra Driscoll, DDS [address] [place], [place] [phone] antibiotic pre treatment Social History Tobacco Use Types Packs/Day Years Used Date Smoking Tobacco: Never Smokeless Tobacco: Never Sex and Gender Information Value Date Recorded Sex Assigned at Male 07/15/2022 10:19 AM EDT Legal Sex Male 10:19 AM EDT Gender Identity Male 07/15/2022 10:19 AM EDT Sexual Orientation Lesbian or Hernandez 07/15/2022 10 :19 AM EDT documented as of this encounter Miscellaneous Notes * Telephone Encounter - Maya Cristobal - 06/06/2023 10:42 AM EDT Patient sent in request through My Chart on the medical side. 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 He has an appt on 06/26/2023. He stating that his grounds keeper recommends he take antibiotic priorto dental treatment. Can script be sent DR documented in this encounter Plan of Treatment Upcoming Encounters Date Type Department Care Team (Late st Contact Info) Description 04/14/2025 9:15 AM EDT Office Visit [facility] MEDICINE [address] [place] [address] Génesis Bruno MD [address] [place] [address] documented as of this encounter Visit Diagnoses Not on filedocumented in this encounter Care Teams Transformer Assembly Supervisor Relationship Specialty Start Date End Date Génesis Bruno MD [address] [place] [address] PCP - General Family Medicine 09/15/18 Lela Anderson [address] [facility] [address] [place] [address] Gastroenterology 08/19/24 Shruti Burton MD [address] [place] [address] [facility] [place] [address] Neurology 09/09/24 Rafael Plascencia MD [address] [place] [address] Cardiology 09/09/24 Cara Keen 11 [facility] [address] [place] [address] Gastroenterology 09/17/24 Kulwinder Salmon MD 2 [facility] [address] [place] [address] Ophthalmology 03/02/25 documented as of this encounter
[2025-03-12 10:02] LABS: Prostate Specific Antigen 4.09 ng/mL (<0.05-4.0)
[2025-03-12 10:12] LABS: Free T4 (Free Thyroxine) 1.77 ng/dL (0.71-1.85)
[2025-03-14 16:54] LABS: Follicle Stimulating Hormone 4.9 mIU/mL (1.4-12.8); Lutenizing Hormone 2.1 mIU/mL (1.6-15.2)
[2025-03-21 01:08] LABS: Testosterone, Free 50.8 pg/mL (30.0-135.0); Testosterone, Total 266 ng/dL (250-1100)
== END 2025-03-12 08:37 | disposition home or self-care (01) ==
LOC: HO.LAB 08:36
PROVIDERS: PCP Family Medicine; Visit Provider Urology
DX: Z12.5 Encounter for screening for malignant neoplasm of prostate (principal); R68.82 Decreased libido
CPT/HCPCS: 36415; 83001; 83002; 84153; 84402; 84403; 84439; 84443

== ENCOUNTER 2025-04-14 09:47 | Outpatient (REF) | payer OTHER, SELFPAY ==
--- OUTSIDE RECORDS SUMMARY | 2025-04-14 10:17 | XMS_ITS | Encounter Summary ---
Author Organization [facility] Address [address] [facility] 7t [place] [address] Care Team Providers Care Supervisor Sewer Maintenance Name Role Phone Kiana, Génesis REDD Primary Care Provider Lela Anderson Unavailable Shruti Burton MD Unavailable Rafael Plascencia MD Unavailable [phone] Cara Keen Unavailable Kulwinder Salmon MD Unavailable [phone] Effie Castañeda MD Unavailable Reason for Visit * Reason Onset Date Comments antibiotic pre treatment 06/06/2023 Encounter Details Date Type Department Care Team (Late st Contact Info) Description 06/06/2023 Telephone [facility] ADULT DENTAL [address] [place] [address] Sandra Driscoll DDS [address] [place], [place] [phone] antibiotic pre treatment Social History Tobacco Use [...] through My Chart on the medical side. 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 He has an appt on 06/26/2023. He stating that his metal hanger recommends he take antibiotic priorto dental treatment. Can script be sent DR documented in this encounter Plan of Treatment Not on file documented as of this encounter Visit Diagnoses Not on filedocumented in this encounter Care Teams Supervisor Sewer Maintenance Relationship Specialty Start Date End Date Génesis Bruno MD [address] [place] [address] PCP - General Family Medicine 09/15/18 Lela Anderson [address] [address] Gastroenterology 08/19/24 Shruti Burton MD [address] [place] [phone] Neurology 09/09/24 Rafael Plascencia MD [address] [place] [address] Cardiology 09/09/24 Cara Keen 11 [facility] [address] [place] [address] Gastroenterology 09/17/24 Kulwinder Salmon MD 2 [facility] [address] [place] [address] Ophthalmology 03/02/25 Effie Castañeda MD [address] [place] [address] Urology 03/17/25 documented as of this encounter
[2025-04-14 11:38] LABS: Cholesterol 187 mg/dL (<200); HDL Cholesterol 47 mg/dL (>40); Triglycerides 81 mg/dL (<150)
== END 2025-04-14 09:48 | disposition home or self-care (01) ==
LOC: HO.HHCL 09:47
PROVIDERS: PCP Family Medicine; Visit Provider Family Medicine
DX: E29.1 Testicular hypofunction (principal)
CPT/HCPCS: 36415; 80061; 84403

== ENCOUNTER 2025-04-25 03:23 | Emergency (ER) | payer OTHER, SELFPAY ==
--- NOTE | ~2025-04-25 | CT_ITS ---
EXAMINATION: CT ABDOMEN PELVIS WITH IV CONTRAST HISTORY: severe abd pain, vomiting COMPARISON: Comparison is made with the prior examination dated 05/14/2021. TECHNIQUE: CT scan of the abdomen and pelvis was performed following administration of 85 mL Omnipaque 350 using standard departmental protocol. Coronal and sagittal reformatted images were generated and reviewed. Oral contrast material was not administered at the request of the referring physician. This CT exam was performed with one or more of the following dose reduction techniques: automated exposure control, adjustment of the mA and/or kV according to patient size, use of iterative reconstruction technique. DLP: 517 mGy-cm FINDINGS: LOWER CHEST: The visualized lung bases are clear. There is no pleural effusion. CARDIOVASCULATURE: The heart is normal in size. There is no pericardial effusion. LIVER: The liver is normal in size and contour. Again seen are scattered cysts within the liver measuring up to 12 mm in size. The hepatic and portal veins are patent. GALLBLADDER / BILE DUCTS: The gallbladder is unremarkable. There is no intra or extrahepatic biliary ductal dilatation. SPLEEN: The spleen is normal in size. No focal splenic lesion is identified. PANCREAS: The pancreas is unremarkable in appearance. ADRENAL GLANDS: Within normal limits. KIDNEYS/RETROPERITONEUM: No renal calculi are identified. There is no hydronephrosis. There is a 10 mm hyperdense lesion at the upper pole of the left kidney and a 2.5 cm hyperdense lesion at the lower pole, compatible with hyperdense cysts. These were present previously, although the lower pole lesion is slightly larger (previously 1.6 cm). LYMPH NODES: No abdominal or pelvic lymphadenopathy. VASCULATURE: The abdominal aorta is normal in caliber. MESENTERY/PERITONEUM: There is a small amount of free fluid in the pelvis. No masses. There is no free intraperitoneal gas. STOMACH: The stomach is collapsed, limiting evaluation. SMALL BOWEL: The small bowel is normal in caliber. COLON: There is diverticulosis of the descending and sigmoid colon, without evidence of diverticulitis. APPENDIX: The appendix is not seen, however no inflammatory changes are seen adjacent to the cecum. URINARY BLADDER/PELVIC ORGANS: The urinary bladder is unremarkable. The prostate is mildly enlarged. BONES / SOFT TISSUES: There are probable postsurgical changes in the right internal region without significant change from the prior study. There is degenerative disc disease of the spine. CT/CT abdomen pelvis w IV con IMPRESSION: 1. Small amount of free fluid in the pelvis. Diverticulosis of the descending and sigmoid colon, without evidence of diverticulitis. 2. Left renal hyperdense cysts. The lower pole cyst is larger than on the prior study. Electronically signed by: Beto Hughes MD 04/25/2025 11:01 AM EDT
[2025-04-25 03:27] VITALS: BP 141/76; PULSE 85; RESP 16; TEMP 36.4; O2SAT 96; BMI 24.0
[2025-04-25 04:21] LABS: Hematocrit 40.6 % (42.0-52.0); Hemoglobin 14.8 g/dl (14.0-18.0); Imm Gran Abs Auto 0.07 X10*3/uL (0.00-0.03); Imm Gran Pct Auto 0.6 % (0.0-0.4); Lymphocytes Absolute Auto 0.5 X10*3/uL (1.2-4.9); MANUAL DIFF FLAG SCAN; Mean Corpuscular HGB Conc 36.5 g/dl (31.0-36.0); Mean Corpuscular Hemoglobin 32.5 pg (27.0-33.0); Mean Corpuscular Volume 89.0 fL (80.0-98.0); NRBC Abs Auto 0.000 X10*3/uL (0.0-0.012); NRBC Pct Auto 0.0 /100WBC (0.0-0.2); Platelet Count 220 X10*3/uL (160-400); Red Blood Count 4.56 X10*6/uL (4.60-5.80); SCAN SMEAR FLAG 1; White Blood Count 12.3 X10*3/uL (4.8-10.8)
[2025-04-25 04:58] LABS: Alanine Aminotransferase 22 U/L (0-40); Albumin Level 4.6 g/dL (3.5-5.0); Alkaline Phosphatase 77 U/L (39-117); Anion Gap 15 (12-20); Aspartate Amino Transferase 32 U/L (5-37); Blood Urea Nitrogen 19 mg/dL (9-16); Calcium 9.1 mg/dL (8.4-10.2); Carbon Dioxide 24 mmol/L (22-29); Chloride 103 mmol/L (96-108); Creatinine Clr Calc Pharmacy 101.6; Estimated Glomerular Filt Rate > 60; Lipase 11 U/L (8-78); Potassium 3.9 mmol/L (3.3-5.1); Sodium 138 mmol/L (135-145); Total Protein 7.1 g/dL (6.5-8.0)
--- OUTSIDE RECORDS SUMMARY | 2025-04-25 08:04 | XMS_ITS | Encounter Summary ---
Author Organization [employer] [facility] Address [address] [facility] 7t [place] [address] Care Team Providers Care Ham Sawyer Name Role Phone Kiana, Génesis REDD Primary Care Provider Lela Anderson Unavailable Shruti Burton MD Unavailable Rafael Plascencia MD Unavailable [phone] Cara Keen Unavailable Kulwinder Salmon MD Unavailable [phone] Effie Castañeda MD Unavailable Reason for Visit * Reason Onset Date Comments antibiotic pre treatment 06/06/2023 Encounter Details Date Type Department Care Team (Late st Contact Info) Description 06/06/2023 Telephone [facility] ADULT DENTAL [address] [place] [address] Sandra Driscoll DDS [address] [place], [place] [phone] antibiotic pre treatment Social History Tobacco Use [...] through My Chart on the medical side. 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 He has an appt on 06/26/2023. He stating that his technical support director recommends he take antibiotic priorto dental treatment. Can script be sent DR documented in this encounter Plan of Treatment Not on file documented as of this encounter Visit Diagnoses Not on filedocumented in this encounter Care Teams Ham Sawyer Relationship Specialty Start Date End Date Génesis Bruno MD [address] [place] [address] PCP - General Family Medicine 09/15/18 Lela Anderson [address] [address] Gastroenterology 08/19/24 Shruti Burton MD [address] [place] [address] Neurology 09/09/24 Rafael Plascencia MD [address] [place] [address] Cardiology 09/09/24 Cara Keen 11 [facility] [address] [place] [address] Gastroenterology 09/17/24 Kulwinder Salmon MD 2 [facility] [address] [place] [address] Ophthalmology 03/02/25 Effie Castañeda MD [address] [place] [address] Urology 03/17/25 documented as of this encounter
--- NOTE | 2025-04-25 08:13 | ED_ITS ---
HPI - Abdominal Pain General Chief Complaint: Abdominal Pain Stated Complaint: severe abd pain Time Seen by Provider: 04/25/25 08:06 Source: patient Mode of arrival: ambulatory Limitations: no limitations History of Present Illness ED Provider: Vilma Mackenzie PA-C HPI narrative: 70 yo male with history of diverticulosis, right inguinal hernia, BPH, heart murmur who presents to the ER from home c/o severe diffuse abdominal pain and vomiting that started last night at 4pm. He states the pain came on suddenly, was severe and diffuse. He vomited a couple of times. He also had 1 episode of loose stool, but states he took Dulcolax yesterday for some constipation. He reports the pain was severe and he knew he could not sleep so he came into the ER for evaluation last night. He reports since then the pain has subsided. He states with his history of diverticulosis he was told to come to the ER if he were to develop severe abdominal pain with concern for possible diverticulitis. He denies any associated fevers, chills, chest pain, shortness of breath, urinary symptoms, back pain. He has never had pain like this before. No known sick contacts. MD elicited complaint: abdominal pain Pertinent past history: none Onset (ago): hour(s) Pain Consistency: now resolved Location: diffuse Severity: severe Quality: stabbing Radiation: none Migration to: no migration Relieving factors: nothing Associated symptoms: nausea and vomiting Related Data Home Medications ?Medication ?Instructions ?Recorded ?Confirmed amlodipine 5 mg tablet 5 mg PO DAILY 02/15/2103/11 Lactobacillus acidophilus 10 10,000 mmu cells PO DAILY 05/12/23 03/11/25 billion cell capsule (Probiotic) flaxseed oil 1,000 mg capsule 1,000 mg PO DAILY 03/11/25 sildenafil 100 mg tablet (Viagra) 100 mg PO DAILY PRN Sexual Activity 05/12/23 03/11/25 Previous Rx's ?Medication ?Instructions ?Recorded tadalafil 5 mg tablet (Cialis) 5 mg PO DAILY #90 tabs 03/11/25 Allergies Allergy/AdvReac Type Severity Reaction Status Date / Time No Known Allergies Allergy Verified 04/25/25 03:28 Review of Systems Review of Systems Yes all other systems are reviewed and are negative [facility] Past Medical History Medical History Colon polyps Kidney lesion COVID-19 vaccine series completed Anxiety Essential hypertension Obstructive sleep apnea BPH (benign prostatic hyperplasia) Depression Heart murmur Epilepsy Surgical History S/P right inguinal hernia repair (03/05/21) History of bilateral inguinal hernia repair History of eyelid surgery History of colonoscopy History of excision of lesion (10/21/11) History of prostate biopsy Family History Family History Father Prostate cancer Lung cancer Mother Breast cancer Social History Social History Household Members Other:: lives alone- no children Are you a primary manager care management to a significant other at home: No Do you presently have visiting nurse or other home services: No Alcohol intake: current Alcohol intake frequency: holidays/special occasions only Patient Tobacco Use Status: Never used Tobacco Advance Directives: No Advance Directives Information Provided: No Do you have a plan to hurt others: No Plan Physical Exam ED Exam Exam: Appearance: Alert. Oriented X3. No acute distress. Head: normocephalic, atraumatic. Eyes: Pupils equal, round and reactive to light. ENT: Pharynx normal. No tonsillar swelling or exudate. Neck: Normal inspection. Neck supple. CVS: Normal heart rate and rhythm. Pulses normal. Respiratory: No respiratory distress. Breath sounds normal. Abdomen: Soft with mild tenderness in the upper abdomen, no focal tenderness. No rebound or guarding. Normoactive bowel sounds Skin: Skin warm and dry. Normal skin color. Normal skin turgor. No rashes. Extremities: No lower extremity edema. No joint swelling. Neuro/psych: Oriented X 3. Strength is equal and symmetrical throughout, nonfocal Normal speech and cognition. Vital Signs: Vital Signs - 24 hr 04/25/25 03:27 04/25/25 08:54 04/25/25 10:11 Temperature 97.5 F Pulse Rate 85 68 66 Respiratory Rate 16 16 14 Blood Pressure 141/76 H 143/79 H 141/83 H Pulse Oximetry 96 97 99 Oxygen Delivery Method Room Air Room Air Room Air BMI result Body Mass Index 24.0 Medical Decision Making Medical Decision Making [facility] Narrative: 70-year-old male presents to the ER for evaluation of acute onset of severe, diffuse abdominal pain and nausea and vomiting that started last night. Symptoms have significantly improved since then. His vital signs are stable. His physical exam is reassuring, does not have an acute abdomen. Labs show some mild leukocytosis. No significant metabolic derangement. CT scan of the abdomen and pelvis was performed which shows colon diverticulosis, no diverticulitis, renal and hepatic cysts, prostate enlarged, urinary bladder wall thickening. ? this was preliminary read by Dr. Paz Patient continues to feel well, no abdominal pain or vomiting. We discussed the results of his CT scan along with his lab workup. All of which is reassuring. At this time is stable for discharge home, likely gastroenteritis which caused his symptoms. We discussed return precautions. Stable for discharge home Differential Diagnosis Differential Diagnoses: The differential diagnosis associated with the presentation includes Diverticulitis, cholecystitis, gastroenteritis, gastritis, SBO, bowel perforation Admission/Observation Consideration of admission/observation: Escalation of care including admission/observation considered Lab Data [facility] Lab Attestation statement: I reviewed the patient's lab results. Mild leukocytosis, mild hyperglycemia, no anion gap, no major metabolic derangement 04/25/25 04:17 04/25/25 04:17 Labs: Lab Results 04/25/25 04/25/25 Range/Units 04:17 08:56 WBC 12.3 H (4.8-10.8) X10*3/uL RBC 4.56 L (4.60-5.80) X10*6/uL Hgb 14.8 (14.0-18.0) g/dl Hct 40.6 L (42.0-52.0) % MCV 89.0 (80.0-98.0) fL MCH 32.5 (27.0-33.0) pg MCHC 36.5 H (31.0-36.0) g/dl RDW 12.3 (11.0-16.0) % Plt Count 220 (160-400) X10*3/uL MPV 9.5 (9.4-12.4) fL Immature Gran % (Auto) 0.6 H (0.0-0.4) % Neut % (Auto) 91.2 H (45-73) % Lymph % (Auto) 4.4 L (20-40) % Hopkins % (Auto) 3.3 (2-11) % Eos % (Auto) 0.2 (0-4) % Baso % (Auto) 0.3 (0-2) % Lymph # (Auto) 0.5 L (1.2-4.9) X10*3/uL Hopkins # (Auto) 0.4 (0.1-1.2) X10*3/uL Eos # (Auto) 0.0 (0.0-0.4) X10*3/uL Baso # (Auto) 0.0 (0.0-0.2) X10*3/uL Abs Immat Gran (auto) 0.07 H (0.00-0.03) X10*3/uL Absolute Neuts (auto) 11.3 H (2.0-8.3) x10*3/uL Absolute Nucleated RBC 0.000 (0.0-0.012) X10*3/uL Nucleated RBC % (auto) 0.0 (0.0-0.2) /100WBC Smear Tech's Comments VERIFIED Sodium 138 (135-145) mmol/L Potassium 3.9 (3.3-5.1) mmol/L Chloride 103 (96-108) mmol/L Carbon Dioxide 24 (22-29) mmol/L Anion Gap 15 (12-20) BUN 19 H (9-16) mg/dL Creatinine 0.71 (0.5-1.4) mg/dL Estim Creat Clear Calc 101.6 Estimated GFR > 60 Random Glucose 156 H (60-115) mg/dL Calcium 9.1 (8.4-10.2) mg/dL Total Bilirubin 1.0 (0.0-1.0) mg/dL AST 32 (5-37) U/L ALT 22 (0-40) U/L Alkaline Phosphatase 77 (39-117) U/L Total Protein 7.1 (6.5-8.0) g/dL Albumin 4.6 (3.5-5.0) g/dL Lipase 11 (8-78) U/L Urine Color Yellow Urine Appearance Clear Urine pH 7.5 (5.0-9.0) Ur Specific [place] <= 1.005 (1.005-1.025) Urine Protein Negative (Neg-Trace) mg/dL Urine Glucose (UA) Negative (Negative) mg/dL Urine Ketones Negative (Negative) mg/dL Urine Blood Negative (Negative) Urine Nitrite Negative (Negative) Ur Leukocyte Esterase Negative (Negative) Urine RBC 0-2 (0-2) /HPF Urine WBC 0-5 (0-5) /HPF Ur Squamous Epith Cells 0-2 (0-2) /HPF Urine Bacteria None Seen (None Seen) Hyaline Casts 0-2 (0-2) /LPF Independent Interpretation I performed an independent interpretation of an: CT Scan Interpretation: no air fluid levels to suggest obstruction, no colonic wall thickening or abscess apprecaited Radiology Impression Discussion of test interpretation with radiology: I have reviewed the radiologist's reading. External Record Review External record reviewed: Outpatient record, Prior outpatient labs and Prior outpatient radiology Prescription Management I considered prescription management with: Pain Medication and Antibiotic Chronic Conditions Patient?s care impacted by: Other (diverticulosis) Critical Care Time Critical Care Time Critical Care Time: No Discharge Plan Discharge Clinical Impression: Gastroenteritis Patient Disposition: Home, Self-Care Instructions: Gastroenteritis (DC) Additional Instructions: You lab workup today was unremarkable. Your urine test was negative for infection Your CT scan did not show any concerning findings to cause your symptoms. You most likely have a viral GI bug also known as gastroenteritis. Treatment is supportive care, symptoms usually resolve on their own in 48-72 hours. Recommend rest and plenty of oral hydration. Stick to a bland diet like soup and toast while you are not feeling well. Follow up with your doctor as needed. If you develop new or worsening symptoms call 911 or come back to the ER for further evaluation. Prescriptions: No Action flaxseed oil 1,000 mg Capsule 1,000 mg PO DAILY Rx Instructions: administer with a meal Probiotic 10 billion cell Capsule 10,000 mmu cells PO DAILY sildenafil [Viagra] 100 mg Tablet 100 mg PO DAILY PRN (Reason: Sexual Activity) Rx Instructions: administer 30 minutes to 4 hours before activity amlodipine 5 mg tablet 5 mg PO DAILY tadalafil [Cialis] 5 mg tablet 5 mg PO DAILY Qty: 90 2RF Referrals: Génesis Bruno MD [Primary Care Provider, Family Practice] Print Language: Cymraes
[2025-04-25 08:54] VITALS: BP 143/79; PULSE 68; RESP 16; O2SAT 97
[2025-04-25 09:06] LABS: Appearance Urine Clear; Glucose Urine UA Negative (Negative); PH 7.5 (5.0-9.0); Specific Gravity - Urine <= 1.005 (1.005-1.025)
[2025-04-25 10:11] VITALS: BP 141/83; PULSE 66; RESP 14; O2SAT 99
[2025-04-25] MEDS: iohexoL 350 MG/ML 100 ML INFUS..BTL IV (10:44)
[2025-04-25 11:02] VITALS: BP 141/83; PULSE 66; RESP 14; TEMP 36.6; O2SAT 99
== END 2025-04-25 11:03 | disposition home or self-care (01) ==
PROVIDERS: Physician Assistant; Emergency Provider Emergency Medicine; PCP Family Medicine
DX: K52.9 Noninfective gastroenteritis and colitis, unspecified (principal)
CPT/HCPCS: 36415; 74177; 80053; 81001; 83690; 85025; 99284; Q9967

== ENCOUNTER → 2025-04-25 08:13 | Outpatient (BNV) | payer OTHER, SELFPAY | PROVIDERS: Emergency Provider Emergency Medicine; PCP Family Medicine; Visit Provider Radiology Diagnostic Radiology | DX: K57.30 Diverticulosis of large intestine without perforation or abscess without bleeding (principal); N28.1 Cyst of kidney, acquired | CPT/HCPCS: 74177 ==

== ENCOUNTER 2025-05-03 14:38 | Outpatient (REF) | payer OTHER, SELFPAY ==
--- OUTSIDE RECORDS SUMMARY | 2025-05-03 15:58 | XMS_ITS | Encounter Summary ---
Author Organization [facility] Address [address] [place] [address] Care Team Providers Care Hvac Service Technician Name Role Phone Kiana, Génesis REDD Primary Care Provider Lela Anderson Unavailable Shruti Burton MD Unavailable [phone] Rafael Plascencia MD Unavailable [phone] Cara Keen Unavailable Kulwinder Salmon MD Unavailable [phone] Effie Castañeda MD Unavailable Reason for Visit * Reason Onset Date Comments antibiotic pre treatment 06/06/2023 Encounter Details Date Type Department Care Team (Late st Contact Info) Description 06/06/2023 Telephone [facility] ADULT DENTAL [address] [place] [address] Sandra Driscoll DDS [address] [place], [place] [phone] antibiotic pre treatment Social History Tobacco Use [...] through My Chart on the medical side. Associate Professor Of Violin Bharat came to put in request. He has an appt on 06/26/2023. He stating that his sales operations assistant recommends he take antibiotic priorto dental treatment. Can script be sent DR documented in this encounter Plan of Treatment Upcoming Encounters Date Type Department Care Team (Late st Contact Info) Description 07/27/2025 2:00 PM EST Office Visit [facility] MEDICINE [address] [place] [address] Génesis Bruno MD [address] [place] [id number] documented as of this encounter Visit Diagnoses Not on filedocumented in this encounter Care Teams Hvac Service Technician Relationship Specialty Start Date End Date Génesis Bruno MD [address] [place] [phone] PCP - General Family Medicine 09/15/18 Lela Anderson [address] [facility] [address] [place] [address] Gastroenterology 08/19/24 Shruti Burton MD [address] [place] [address] [facility] [place] [address] Neurology 09/09/24 Rafael Plascencia MD [address] [place] [address] Cardiology 09/09/24 Cara Keen [address] [facility] [address] [place] [address] Gastroenterology 09/17/24 Kulwinder Salmon MD [address] [facility] [address] [place] [address] Ophthalmology 03/02/25 Effie Castañeda MD [address] [place] [address] [address] [place] [address] Urology 03/17/25 documented as of this encounter
[2025-05-03 16:35] LABS: Hematocrit 41.4 % (42.0-52.0); Hemoglobin 14.0 g/dl (14.0-18.0); Mean Corpuscular HGB Conc 33.8 g/dl (31.0-36.0); Mean Corpuscular Hemoglobin 31.3 pg (27.0-33.0); Mean Corpuscular Volume 92.4 fL (80.0-98.0); NRBC Abs Auto 0.000 X10*3/uL (0.0-0.012); NRBC Pct Auto 0.0 /100WBC (0.0-0.2); Platelet Count 217 X10*3/uL (160-400); Red Blood Count 4.48 X10*6/uL (4.60-5.80); White Blood Count 6.8 X10*3/uL (4.8-10.8)
[2025-05-03 16:52] LABS: Iron 120 mcg/dL (45-160); Percent Iron Saturation 45 % (15-50); Total Iron Binding Capacity 266 mcg/dL (228-428); Unsaturated Iron Binding 146 ug/dL
[2025-05-03 17:15] LABS: Folate 12.7 ng/mL (> or = 4.0); Vitamin B12 741 pg/mL (200-900)
[2025-05-03 17:16] LABS: Ferritin 143 ng/mL (20-250)
[2025-05-04 08:25] LABS: Syphilis Screen Nonreactive (Nonreactive)
[2025-05-04 08:41] LABS: HBsAGNum1 0.51 S/CO (0.00-0.99); HIV Num 1 0.18 S/CO (0.00-0.99); Hepatitis B Surface Antigen Negative (Negative); ~HepC Num1 0.20 S/CO (0.00-0.79); ~Hepatitis C Antibody Nonreactive (Nonreactive)
[2025-05-07 14:19] LABS: Anti Nuclear Antibody Screen NEGATIVE (NEGATIVE)
== END 2025-05-03 14:39 | disposition home or self-care (01) ==
LOC: HO.HHCL 14:38
PROVIDERS: PCP Family Medicine; Visit Provider Student in an Organized Health Care Education/Training Program
DX: Z11.4 Encounter for screening for human immunodeficiency virus [HIV] (principal); Z11.59 Encounter for screening for other viral diseases; Z11.3 Encounter for screening for infections with a predominantly sexual mode of transmission; Z01.84 Encounter for antibody response examination; R53.83 Other fatigue
CPT/HCPCS: 36415; 82306; 82607; 82728; 82746; 83540; 84443; 85027; 85652; 86038; 86140; 86780; 86803; 87340; 87389

== ENCOUNTER 2025-05-30 15:45 | Outpatient (AMB) | payer OTHER, SELFPAY ==
--- NOTE | 2025-05-30 15:48 | A.OFFVIS_ITS ---
Vital Signs 05/30/25 15:51 Height 5 ft 11 in Weight 173 lb 11.588 oz BMI 24.2 BP 122/74 Blood Pressure Location Rt brachial Position Sitting Pulse 81 Pulse Source Pulse Oximeter Pulse Oximetry (%) 94 Oxygen Delivery Method Room Air Intake Visit Reasons: Hypogonadism Intake Note: New patient externally referred by PCP for Hypogonadism. Floral Merchandiser Required: No Accompanied by: Self / Same As Patient Allergies No Known Allergies Allergy (Verified 05/30/25 15:52) Medication List - Last Reconciled 05/30/25 by Beto eFrreira MD amlodipine 5 mg PO DAILY flaxseed oil 1,000 mg PO DAILY Lactobacillus acidophilus (Probiotic) 10,000 mmu cells PO DAILY sildenafil (Viagra) 100 mg PO DAILY PRN tadalafil (Cialis) 5 mg PO DAILY HPI Comments Details: 70 YO Male who is seen in consultation at the request of his PCP for Hypogonadism. First diagnosed with Hypogonadism recently with labs revealing below . Not started on Testosterone supplementation Currently not achieving spontaneous am erections, and unable to achieve erection when desired. Reports low libido 12/2024 . Decreased facial hair and shaving frequency. Denies any change in size or shape of testicles. Denies penile discharge or scrotal tenderness. Denies any history of mumps orchitis. Denies any head trauma. Has history of ALEC but does not use CPAP . No children who were conceived spontaneously. Sense of smell intact. Denies headache but some visual changes, gynecomastia or galactorrhea. Denies orthostatic symptoms,unintentional weight loss of 10 lbs . Denies change in size of hands or feet. Denies hair loss, weight gain, cold intolerance. History of DVT or PE: No Not trying to father children No use of anabolic steroids or narcotics Labs:T=266, 199 PSA CBC [facility] Medical History (Updated 05/30/25 @ 15:57 by Beto Ferreira MD) Hypogonadism, testicular Colon polyps Kidney lesion COVID-19 vaccine series completed Anxiety Essential hypertension Obstructive sleep apnea BPH (benign prostatic hyperplasia) Depression Heart murmur Epilepsy Surgical History S/P right inguinal hernia repair (03/05/21) History of bilateral inguinal hernia repair History of eyelid surgery History of colonoscopy History of excision of lesion (10/21/11) History of prostate biopsy Family History Father Prostate cancer Lung cancer Mother Breast cancer Social History Household Members Other:: lives alone- no children Are you a primary point of care technician to a significant other at home: No Do you presently have visiting nurse or other home services: No Alcohol intake: current Alcohol intake frequency: holidays/special occasions only Patient Tobacco Use Status: Never used Tobacco Physical Exam Vital Signs: Last Vital Signs Pulse 81 05/30/25 15:51 BP 122/74 05/30/25 15:51 Pulse Ox 94 05/30/25 15:51 Oxygen Delivery Method Room Air 05/30/25 15:51 BMI result Body Mass Index 24.2 There is the absence of eunichoidal proportions. Neck exam reveals nl thyroid about 15 gms. Chest exam reveals absence of gynecomastia. Lungs CTA. Heart is S1 S2 Reg R/R. -M/R/G. Abdominal exam is benign. Muscle strength is 5/5 proximally. Examination of genitalia reveals nl size pthalus . Testes are of nl size and consistency. There is Henri Stage V Hair development Assessment & Plan Assessment & Plan (1) Hypogonadism, testicular: Code(s): E29.1 - Testicular hypofunction Category: Medical Plan: This is a 70-year-old white male found to have low total testosterone levels. Rule out low SHBG Plan is to recheck free testosterone along with LH and FSH fasting in a.m.. Further workup based on the above Orders: Orders Testosterone, Free/Total 05/30/25 E29.1 - Testicular hypofunction Follicle Stimulating Hormone 05/30/25 E29.1 - Testicular hypofunction Lutenizing Hormone 05/30/25 E29.1 - Testicular hypofunction Cortisol Random 05/30/25 E29.1 - Testicular hypofunction Coding Level of Care Code New Pt Level 4 (91553) Diagnoses Hypogonadism, testicular E29.1
[2025-05-30 15:51] VITALS: BP 122/74; PULSE 81; O2SAT 94; BMI 24.2
--- OUTSIDE RECORDS SUMMARY | 2025-05-30 21:06 | XMS_ITS | Encounter Summary ---
Author Organization [facility] Address [address] [facility] [address] [place] [address] Care Team Providers Care Police Communications Dispatcher Name Role Phone [place]ford, Génesis REDD Primary Care Provider Lela Anderson Unavailable Shruti Burton MD Unavailable Rafael Plascencia MD Unavailable Cara Keen Unavailable Kulwinder Salmon MD Unavailable [phone] Effie Castañeda MD Unavailable Encounter Details Date Type Department Care Team (Late st Contact Info) Description 08/26/2023 Abstract [facility] ADULT DENTAL [address] [place] [address] Sandra Driscoll DDS [address] [place], [place] [phone] Social History Tobacco Use Types Packs/Day Years Used Date Smoking Tobacco: Never Smokeless Tobacco: Never Sex and Gender Information Value Date Recorded Sex Assigned at Male 07/15/2022 10:19 AM EDT Legal Sex Male 10:19 AM EDT Gender Identity Male 07/15/2022 10:19 AM EDT Sexual Orientation Lesbian or Hernandez 07/15/2022 10 :19 AM EDT documented as of this encounter Plan of Treatment Upcoming Encounters Date Type Department Care Team (Late st Contact Info) Description 07/27/2025 2:00 PM EST Office Visit [facility] MEDICINE [address] [place] [address] Génesis Bruno MD [address] [place] [address] documented as of this encounter Visit Diagnoses Not on filedocumented in this encounter Care Teams Police Communications Dispatcher Relationship Specialty Start Date End Date Génesis Bruno MD [address] [place] [address] PCP - General Family Medicine 09/15/18 Lela Anderson [address] [address] Gastroenterology 08/19/24 Shruti Burton MD [address] [place] [address] Neurology 09/09/24 Rafael Plascencia MD [address] [place] [address] Cardiology 09/09/24 Cara Keen [address] [address] Gastroenterology 09/17/24 Kulwinder Salmon MD [address] [facility] [address] [place] [address] Ophthalmology 03/02/25 Effie Castañeda MD [address] [place] [address] Urology 03/17/25 documented as of this encounter
--- OUTSIDE RECORDS SUMMARY | 2025-05-30 21:06 | XMS_ITS | Encounter Summary ---
Author Organization [employer] [facility] Address [address] 7t [place] [address] Care Team Providers Care Balance Assembler Name Role Phone [place], Génesis REDD Primary Care Provider [phone] Lela Anderson Unavailable Shruti Burton MD Unavailable Rafael Plascencia MD Unavailable [phone] Cara Keen Unavailable Kulwinder Salmon MD Unavailable [phone] Effie Castañeda MD Unavailable Reason for Visit * Reason Comments Med Refill Encounter Details Date Type Department Care Team (Late st Contact Info) Description 09/12/2024 Refill [facility] 230 [place], [place] [id number] Luanne Guadalupe MD 230 [place], [place] [phone] Loss of appetite; Depressive disorder Social History Tobacco Use Types Packs/Day Years Used Date Smoking Tobacco: Never Passive Smoke Exposure: Never Smokeless Tobacco: Never Alcohol Use Standard Drinks/Week Comments Never 0 (1 standard drink = 0.6 oz pur e alcohol) Depression Answer Date Recorded Patient Health Questionnaire-9 Score 0 03/24/2024 Patient Health Questionnaire-9 Score 0 03/24/2024 Last PHQ-9: Questionnaire Data Not on file 0 03/24/2024 Housing Stability Answer Date Recorded What is your housing situation today? I am not s ure 03/24/[address] you li ve. Do you have problems with any of the following? None of the above 03/24/2024 Food Insecurity Answer Date Recorded Within the past 12 months, y ou worried that your food would run out before you got money to buy more: Never True 03/24/2024 Within the past 12 months,th e food you bought just didn't last and you didn't have enough money to get more: Never True 06/2024 Transportation Answer Date Recorded In the past 12 months, has l ack of transportation kept you from medical appts, meetings, work or from getting things needed for daily living? No 03/24/2024 Utilities Answer Date Recorded In the past 12 months, has t he electric, gas, oil or water company threatened to shut off services in your home? No 03/24/2024 Depression Answer Date Recorded Patient Health Questionnaire-2 Score 0 03/24/2024 Internet Access Answer Date Recorded Internet Access Q1 No 05/17/2024 Internet Access Q2 I do not want or need it 10/2023 Sex and Gender Information Value Date Recorded [...] Description 07/27/2025 2:00 PM EST Office Visit [facility] MEDICINE [address] [place] [address] Génesis Bruno MD [address] [place] [address] documented as of this encounter Visit Diagnoses Diagnosis Loss of appetite Anorexia Depressive disorder Depressive disorder, not elsewhere classified documented in this encounter Additional Health Concerns Assessment Noted Time PHQ-9 Depression Total Score: 0 03/24/20 24 2:18 PM EDT documented as of this encounter Care Teams Balance Assembler Relationship Specialty Start Date End Date Génesis Bruno MD [address] [place] [address] PCP - General Family Medicine 09/15/18 Lela Anderson [address] 3rd [place] [address] Gastroenterology 08/19/24 Shruti Burton MD [address] [place] [address] [place] [address] Neurology 09/09/24 Rafael Plascencia MD 596 [place] [address] Cardiology 09/09/24 Cara Keen [address] 3rd [place] [address] Gastroenterology 09/17/24 Kulwinder Salmon MD [address] [place] [address] Ophthalmology 03/02/25 Effie Castañeda MD [address] [place] [address] Urology 03/17/25 documented as of this encounter
--- OUTSIDE RECORDS SUMMARY | 2025-05-30 21:06 | XMS_ITS | Encounter Summary ---
Author Organization [employer] [facility] Address [address] [facility] 7t [place] [address] Care Team Providers Care Diet Kitchen Cook Name Role Phone [place], Génesis REDD Primary Care Provider Lela Anderson Unavailable Shruti Burton MD Unavailable Rafael Plascencia MD Unavailable Cara Keen Unavailable Kulwinder Salmon MD Unavailable [phone] Effie Castañeda MD Unavailable Reason for Visit * Reason Comments Med Refill Encounter Details Date Type Department Care Team (Late st Contact Info) Description 10/06/2023 Refill [facility] ADULT DENTAL 230 [place] [address] Sandra Driscoll DDS 230 [place] [address] Social History Tobacco Use Types Packs/Day Years [...] encounter Miscellaneous Notes * Telephone Encounter - Sandra Driscoll DDS - 10/06/2023 12:03 PM EST Approving, but needs appt for additional refills. documented in this encounter Plan of Treatment Upcoming Encounters Date Type Department Care Team (Late st Contact Info) Description 07/27/2025 2:00 PM EST Office Visit [facility] MEDICINE 230 [place] [address] Génesis Bruno MD 230 [place] [address] documented as of this encounter Visit Diagnoses Not on filedocumented in this encounter Care Teams Diet Kitchen Cook Relationship Specialty Start Date End Date Génesis Bruno MD 230 [place] [address] PCP - General Family Medicine 09/15/18 Lela Anderson [address] [facility] 3rd [place] [address] Gastroenterology 08/19/24 Shruti Burton MD [address] [place] [address] Neurology 09/09/24 Rafael Plascencia MD 596 [place] [address] Cardiology 09/09/24 Cara Keen [address] [facility] 3rd [place] [address] Gastroenterology 09/17/24 Kulwinder Salmon MD 2 [facility] [address] [place] [address] Ophthalmology 03/02/25 Effie Castañeda MD [address] [place] [address] Urology 03/17/25 documented as of this encounter
--- OUTSIDE RECORDS SUMMARY | 2025-05-30 21:06 | XMS_ITS | Encounter Summary ---
Author Organization [employer] [facility] Address [address] [facility] 7t [place] [address] Care Team Providers Care Herbarium Worker Name Role Phone Génesis Bruno MD Primary Care Provider [phone] Lela Anderson Unavailable Shruti Burton MD Unavailable [phone] Rafael Plascencia MD Unavailable [phone] Cara Keen Unavailable Kulwinder Salmon MD Unavailable [phone] Effie Castañeda MD Unavailable Reason for Visit * Reason Comments Med Refill Encounter Details Date Type Department Care Team (Late st Contact Info) Description 06/11/2023 Refill [facility] MEDICINE 230 [place], [place] [phone] Génesis Bruno MD 230 [place], [place] [phone] Essential hypertension Social History Tobacco Use Types Packs/Day Years [...] Description 07/27/2025 2:00 PM EST Office Visit [facility] MEDICINE 230 [place] [address] Génesis Bruno MD 230 [place] [address] documented as of this encounter Visit Diagnoses Diagnosis Essential hypertension Unspecified essential hypertension documented in this encounter Care Teams Herbarium Worker Relationship Specialty Start Date End Date Génesis Bruno MD 230 [place] [address] PCP - General Family Medicine 09/15/18 Lela Anderson [address] [facility] 3rd [place] [address] Gastroenterology 08/19/24 Shruti Burton MD [address] [place] [address] [place] [address] Neurology 09/09/24 Rafael Plascencia MD 596 [place] [address] Cardiology 09/09/24 Cara Keen 11 [facility] 3rd [place] [address] Gastroenterology 09/17/24 Kulwinder Salmon MD 2 [facility] [address] [place] [address] Ophthalmology 03/02/25 Effie Castañeda MD [address] [place] [address] Urology 03/17/25 documented as of this encounter
--- OUTSIDE RECORDS SUMMARY | 2025-05-30 21:06 | XMS_ITS | Encounter Summary ---
Author Organization [employer] [facility] Address [address] [facility] 7t [place] [address] Care Team Providers Care Cheese Cutter Name Role Phone Génesis Bruno MD Primary Care Provider Lela Anderson Unavailable Shruti Burton MD Unavailable Rafael Plascencia MD Unavailable Cara Keen Unavailable Kulwinder Salmon MD Unavailable [phone] Effie Castañeda MD Unavailable Encounter Details Date Type Department Care Team (Late st Contact Info) Description 08/26/2023 Abstract [facility] ADULT DENTAL 230 [place] [address] Ja Diaz DMD [address] [place] [address] Social History Tobacco Use Types Packs/Day Years [...] Description 07/27/2025 2:00 PM EST Office Visit [facility] MEDICINE 230 [place], [place] [phone] Génesis Bruno MD 230 [place] [address] documented as of this encounter Visit Diagnoses Not on filedocumented in this encounter Care Teams Cheese Cutter Relationship Specialty Start Date End Date Génesis Bruno MD 230 [place] [address] PCP - General Family Medicine 09/15/18 Lela Andreson [address] [facility] 3rd [place] [address] Gastroenterology 08/19/24 Shruti Burton MD [address] [place] [address] Neurology 09/09/24 Rafael Plascencia MD 6 [place] [address] Cardiology 09/09/24 Cara Keen [address] [facility] 3rd [place] [address] Gastroenterology 09/17/24 Kulwinder Salmon MD 2 [facility] [address] [place] [address] Ophthalmology 03/02/25 Effie Castañeda MD [address] [place] [address] Urology 03/17/25 documented as of this encounter
--- OUTSIDE RECORDS SUMMARY | 2025-05-30 21:06 | XMS_ITS | Encounter Summary ---
Author Organization [employer] [facility] Address [address] [facility] 7t [place] [address] Care Team Providers Care Property Staff Accountant Name Role Phone [place], Génesis REDD Primary Care Provider [phone] Lela Anderson Unavailable Shruti Burton MD Unavailable Rafael Plascencia MD Unavailable [phone] Cara Keen Unavailable Kulwinder Salmon MD Unavailable [phone] Effie Castañeda MD Unavailable Encounter Details Date Type Department Care Team (Late st Contact Info) Description 08/17/2024 Orders Only [facility] MEDICINE 230 [place], [place] [phone] Luanne Guadalupe MD 230 [place], [place] [phone] Social History Tobacco Use Types Packs/Day Years [...] Description 07/27/2025 2:00 PM EST Office Visit [facility] MEDICINE [address] [place] [address] Génesis Bruno MD 230 [place] [address] documented as of this encounter Visit Diagnoses Not on filedocumented in this encounter Additional Health Concerns Assessment Noted Time PHQ-9 Depression Total Score: 0 03/24/20 24 2:18 PM EDT documented as of this encounter Care Teams Property Staff Accountant Relationship Specialty Start Date End Date Génesis Bruno MD [address] [place] [address] PCP - General Family Medicine 09/15/18 Lela Anderson [address] 3rd [place] [address] Gastroenterology 08/19/24 Shruti Burton MD [address] [place] [address] Neurology 09/09/24 Rafael Plascencia MD 596 [place] [address] Cardiology 09/09/24 Cara eKen [address] 3rd [place] [address] Gastroenterology 09/17/24 Kulwinder Salmon MD [address] [place] [address] Ophthalmology 03/02/25 Effie Castañeda MD [address] [place] [address] Urology 03/17/25 documented as of this encounter
--- OUTSIDE RECORDS SUMMARY | 2025-05-30 21:06 | XMS_ITS | Encounter Summary ---
Author Organization [facility] Address [address] [facility] 7t [place] [address] Care Team Providers Care Cofferdam Construction Supervisor Name Role Phone Génesis Bruno MD Primary Care Provider Lela Anderson Unavailable Shruti Burton MD Unavailable [phone] Rafael Plascencia MD Unavailable [phone] Cara Keen Unavailable Kulwinder [place]mon MD Unavailable [phone] Effie Castañeda MD Unavailable Encounter Details Date Type Department Care Team (Late st Contact Info) Description 05/20/2023 Abstract [facility] ADULT DENTAL 230 [place], [place] [phone] Anthony Gonzalez DMD 230 [place], [place] [phone] Social History Tobacco Use Types Packs/Day Years [...] Description 07/27/2025 2:00 PM EST Office Visit [facility] MEDICINE 230 [place] [address] Génesis Bruno MD 230 [place] [address] documented as of this encounter Visit Diagnoses Not on filedocumented in this encounter Care Teams [employer] Construction Supervisor Relationship Specialty Start Date End Date Génesis Bruno MD 230 [place] [address] PCP - General Family Medicine 09/15/18 Lela Anderson [address] [address] Gastroenterology 08/19/24 Shruti Burton MD [address] [place] [address] Neurology 09/09/24 Rafael Plascencia MD 6 [place] [address] Cardiology 09/09/24 Cara Keen [address] [address] Gastroenterology 09/17/24 Kulwinder Salmon MD 2 [facility] [address] [place] [address] Ophthalmology 03/02/25 Effie Castañeda MD [address] [place] [address] Urology 03/17/25 documented as of this encounter
--- OUTSIDE RECORDS SUMMARY | 2025-05-30 21:06 | XMS_ITS | Encounter Summary ---
Author Organization [employer] [facility] Address [address] [facility] 7t [place] [address] Care Team Providers Care Lock Maintenance Supervisor Name Role Phone [place], Génesis REDD Primary Care Provider Lela Anderson Unavailable Shruti Burton MD Unavailable [phone] Rafael Plascencia MD Unavailable [phone] Cara Keen Unavailable Kulwinder [place] MD Unavailable [phone] Effie Castañeda MD Unavailable Reason for Visit * Reason Onset Date Comments antibiotic pre treatment 06/06/2023 Encounter Details Date Type Department Care Team (Late st Contact Info) Description 06/06/2023 Telephone [facility] ADULT DENTAL 230 [place] [address] Sandra Driscoll DDS 230 [place], [place] [phone] antibiotic pre treatment Social History Tobacco Use [...] through My Chart on the medical side. Physiologist Bharat came to put in request. He has an appt on 06/26/2023. He stating that his community placement worker recommends he take antibiotic priorto dental treatment. Can script be sent DR documented in this encounter Plan of Treatment Upcoming Encounters Date Type Department Care Team (Late st Contact Info) Description 07/27/2025 2:00 PM EST Office Visit [facility] MEDICINE 230 [place] [address] Génesis Bruno MD [address] [place] [address] documented as of this encounter Visit Diagnoses Not on filedocumented in this encounter Care Teams Lock Maintenance Supervisor Relationship Specialty Start Date End Date Génesis Bruno MD [address] [place] [address] PCP - General Family Medicine 09/15/18 Lela Anderson 11 [facility] 3rd [place] [address] Gastroenterology 08/19/24 Shruti Burton MD [address] [place] [address] [facility] [place] [address] Neurology 09/09/24 Rafael Plascencia MD 596 [place] [address] Cardiology 09/09/24 Cara Keen 11 [facility] 3rd [place] [address] Gastroenterology 09/17/24 Kulwinder Salmon MD 2 [facility] [address] [place] [address] Ophthalmology 03/02/25 Effie Castañeda MD [address] [place] [address] [address] [place] [address] Urology 03/17/25 documented as of this encounter
--- OUTSIDE RECORDS SUMMARY | 2025-05-30 21:06 | XMS_ITS | Encounter Summary ---
Author Organization [employer] Address 75 [facility] 7t [place] [address] Care Team Providers Care Costume Shop Coordinator Name Role Phone [place], Génesis REDD Primary Care Provider [phone] Lela Anderson Unavailable Shruti Burton MD Unavailable Rafael Plascencia MD Unavailable [phone] Cara Keen Unavailable Kulwinder Salmon MD Unavailable [phone] Effie Castañeda MD Unavailable Encounter Details Date Type Department Care Team (Late st Contact Info) Description 05/04/2025 Results Follow-Up [facility] MEDICINE 230 [place] [address] Luanne Perez MD 230 [place] [address] Iron And Total Iron Binding Capacity, Ferritin, C-reactive Protein, Additional followed-up results: 10 Social History Tobacco Use Types Packs/Day Years Used Date Smoking Tobacco: Never Passive Smoke Exposure: Never Smokeless Tobacco: Never Alcohol Use Standard Drinks/Week Comments Never 0 (1 standard drink = 0.6 oz pur e alcohol) Depression Answer Date Recorded Patient Health Questionnaire-9 Score 6 05/03/2025 Patient Health Questionnaire-9 Score 6 05/03/2025 Last PHQ-9: Questionnaire Data Not on file 0 05/03/2025 Housing Stability Answer Date Recorded What is your housing situation today? I have vance wilkes 04/14/[address] you li ve. Do you have problems with any of the following? None of the above 04/14/2025 Food Insecurity Answer Date Recorded Within the past 12 months, y ou worried that your food would run out before you got money to buy more: Never True 04/14/2025 Within the past 12 months,th e food you bought just didn't last and you didn't have enough money to get more: Never True Transportation Answer Date Recorded In the past 12 months, has l ack of transportation kept you from medical appts, meetings, work or from getting things needed for daily living? No 04/14/2025 Utilities Answer Date Recorded In the past 12 months, has t he electric, gas, oil or water company threatened to shut off services in your home? No 04/14/2025 Depression Answer Date Recorded Patient Health Questionnaire-2 Score 0 05/03/2025 Internet Access Answer Date Recorded Internet Access Q1 No 04/14/2025 Internet Access Q2 I do not want or need it 03/17 Sex and Gender Information Value Date Recorded Sex Assigned at Male 07/15/2022 10:19 AM EDT Legal Sex Male 10:19 AM EDT Gender Identity Male 07/15/2022 10:19 AM EDT Sexual Orientation Lesbian or Hernandez 07/15/2022 10 :19 AM EDT documented as of this encounter Miscellaneous Notes * Result Encounter Note - Luanne Pearl MD - 05/04/2025 10:42 AM EDT Only pd JOHNY result -will inform pt results once that available documented in this encounter Plan of Treatment Upcoming Encounters Date Type Department Care Team (Late st Contact Info) Description 07/27/2025 2:00 PM EST Office Visit [facility] MEDICINE 230 [place] [address] Génesis Bruno MD 230 [place] [address] documented as of this encounter Visit Diagnoses Not on filedocumented in this encounter Additional Health Concerns Assessment Noted Time PHQ-9 Depression Total Score: 6 08/19/20 25 2:03 PM EDT documented as of this encounter Care Teams Costume Shop Coordinator Relationship Specialty Start Date End Date Génesis Bruno MD 230 [place] [address] PCP - General Family Medicine 09/15/18 Lela Anderson [address] 3rd [place] [address] Gastroenterology 08/19/24 Shruti Burton MD [address] [place] [address] Neurology 09/09/24 Rafael Plascencia MD 596 [place] [address] Cardiology 09/09/24 Cara Keen [address] 3rd [place] [address] Gastroenterology 09/17/24 Kulwinder Salmon MD 2 [facility] [address] [place] [address] Ophthalmology 03/02/25 Effie Castañeda MD [address] [place] [address] Urology 03/17/25 documented as of this encounter
--- OUTSIDE RECORDS SUMMARY | 2025-05-30 21:06 | XMS_ITS | Clinical Summary ---
Author Organization [employer] [facility] Address [address] [place] [address] Care Team Providers Care Customer Service Advisor Name Role Phone KianaGénesis omalley MD Primary Care Provider [phone] Lela Anderson Unavailable Shruti Burton MD Unavailable [phone] Rafael Plascencia MD Unavailable Cara Keen Unavailable Kulwinder Salmon MD Unavailable [phone] Effie Castañeda MD Unavailable Allergies No known active allergies Medications triamcinolone (Kenalog) 0.1 % creamIndications :Dry skin dermatitis Apply topically if needed in the morning and at bedtime (pain and swelling). 30 g 2 4 Active Alpha Lipoic Dj-Damttg-Hcvkwp n (Biotin-Keratin- Alpha Lipoic Ac) 50-5-10 MG capsuleIndicatio ns:Dietary deficiency Active Ferrous Sulfate Dried (High Potency Iron) 65 MG tabletIndication s:Dietary deficiency Active Rogm-Twhkr-VBR-B oswellia-Vit D (GLUCOSAMINE CHONDROITIN + D3 PO)Indications:D ietary deficiency Active COD LIVER OIL POIndications:Di etary deficiency Act joe amLODIPine (Norvasc) 5 MG tabletIndication s:Essential hypertension TAKE 1 TABLET BY MOUTH EVERY DAY 90 tablet 3 5 Active L-arginine 700 mg capsule capsuleIndicatio ns:Dietary deficiency Active co-enzyme Q-10 30 MG capsuleIndicatio ns:Dietary deficiency Take 30 mg by mouth Once per day. Active Flaxseed, Linseed, (FLAX SEEDS PO)Indications:D ietary deficiency Take by mouth. Acti ve Ginkgo Biloba (GINKOBA PO)Indications:D ietary deficiency Take by mouth. Acti ve sildenafil (Viagra) 100 MG tabletIndication s:Other male erectile dysfunction Take 0.5 tablets (50 mg) by mouth if needed each day for erectile dysfunction. 10 tablet 3 5 027 Active Additional Information Patient not taking.Reported on 05/03/2025 GARLIC 1500 POIndications:Di etary deficiency Take by mouth. Active tadalafil (Cialis) 20 MG tabletIndication s:Erectile dysfunction, unspecified erectile dysfunction type Take 1 tablet (20 mg) by mouth if needed each day for erectile dysfunction. 10 tablet 5 Active tadalafil (Cialis) 5 MG tablet 5 Active doxycycline (Vibramycin) 100 MG capsuleIndicatio ns:Boil Take 1 capsule (100 mg) by mouth 2 times daily for 5 days. Take with at least 8 ounces (large glass) of water, do not lie down for 30 minutes after 10 capsule 5 025 Active Problems Problem Noted Date Diagnosed Date Fatigue 05/03/2025 Assessment & Plan (05/03/2025 10:28 PM EDT): From physical exam normal complete exam but pt seems tired but no objective abnormal findings that can explain symptoms From chart review -saw PCP for annual exam visit in 03/2025 ,From note had evaluation for elevated LFTs in the past - Autoimmune labs 09/10/24 normal.-had done AMA,transglutaminase, smooth muscle and ceruloplasmin,AFP -from recent lab results reviewed today 04/2025 UA Normal , lipase wnl, Chem wnl, WBC 12.3, elevated neutrophils and low lymphocytes % and absolute . Hb wnl at 14.8 . Pt at the time of test was dxed w gastroenteritis 03/2025 Total testosterone 199 but wnl total and free in 02/2025 . TSH 02/2205 wnl, PSA mild elevation at 4.09 01/2025 Tick born dx panel neg , 08/2024 CRP neg ,JOHNY + 1:40, HIV neg hb1AC 5.8 03/2024 Syphilis and hep C neg -CT abdomen pelvis w IV con 04/2025 The liver is normal in size and contour. Again seen are scattered cysts within the liver measuring up to 12 mm in size. The hepatic and portal veins are patent. No renal calculi are identified. There is no hydronephrosis. There is a 10 mm hyperdense lesion at the upper pole of the left kidney and a 2.5 cm hyperdense lesion at the lower pole, compatible with hyperdense cysts. These were present previously, although the lower pole lesion is slightly larger (previously 1.6 cm).No abdominal or pelvic lymphadenopathy. There is diverticulosis of the descending and sigmoid colon, without evidence of diverticulitis. -CXR 01/2025 Clear lungs -f w GI 08/2024 ? mention of colonoscopy with polypectomy.colonoscopy in 5 years, -EKG today HR 57x' Qtc 437 ,NSR ,does not appear acute findings -read septal infarct enlarge T wave in lead V3 ,not in V2 -from obtained previous EKG report in 2020- not able to see actual EKG there is hx of septal infarct so no new findings -Denies feeling depressed PHQ9 today is 2 for lack of energy and poor concentration -advised to f for renal cyst w his urologist-pt states was aware of renal cyst ,also had liver cyst that can f w PCP -will further do labs to eval possible etiologies of pt's fatigue and repeat CBC -will call pt w lab results -advised pt f up w PCP if symptoms persisit -pt to see Scaffold Worker in 05/2025 For low testosterone Boil 05/03/2025 Assessment & Plan (05/03/2025 10:29 PM EDT): Noted small boil aprox 1 cm in left side of lower mandibula for the past 3 days per pt No drainage -advised warm compresses -if persisit in next 1-2 days to take Doxycycline BID x 5 days Hypogonadism in male 04/14/2025 Overview (04/14/2025): Recent labs revealed Testosterone <300 and elevated PSA, given its is >4 will defer treatment plan to Urologist whom pt is already established with prior to continuing testosterone therapy. Assessment & Plan (04/14/2025 11:34 AM EDT): Recent labs revealed Testosterone <300 and elevated PSA, given its is >4 will defer treatment plan to Urologist whom pt is already established with prior to continuing testosterone therapy. Orders: Testosterone, Total, males (Adult), IA; Future Dietary deficiency 09/22/2024 Overview (09/22/2024): Appetite improved, doing better exercising more. -continue medications as prescribed. Assessment & Plan (04/14/2025 11:34 AM EDT): Appetite improved, doing better exercising more. -continue medications as prescribed. Assessment & Plan (09/22/2024 3:41 PM EST): Appetite improved, doing better exercising more. -continue medications as prescribed. Elevated LFTs 09/05/2024 Overview (04/14/2025): Lab Results Component Value Date AST 24 01/28/2025 AST 29 08/19/2024 ALT 25 01/28/2025 ALT 40 08/19/2024 ALT 19 07/05/2022 ALT 18 06/20/2021 TOTALBILIRUB 0.6 01/28/2025 TOTALBILIRUB 1.1 (H) 08/19/2024 PLT 220 01/28/2025 CREATININE 0.77 01/28/2025 CREATININE 0.91 05/14/2021 NA 143 01/28/2025 -08/2024 US US/US abdomen complete IMPRESSION: Increased echogenicity of the liver parenchyma, this can be seen in the setting of hepatic steatosis or liver parenchymal disease. There are small liver cysts, and left renal cysts no follow-up imaging is indicated. -seen by GI Dr. Keen 09/16/24 We will rule out any autoimmune disorders to explain the increase echogenicity to his liver. Low- fat, low carb, low-salt and high-protein diet recommended. Patient is not moving his bowels very well. Increase fluid intake and activity to promote better bowel motility. Patient does report increased urinary frequency specially at night time, previously seen by Urology, currently has not been following up with anyone. History of BPH, CRAFT ARTIST has been checked on annual basis. Referral will be sent to urology. Patient has tried Flomax in the past and stopped as his libido decreased. Patient will follow-up in the office in 3 months, sooner on as needed basis. Patient will call us if he will have abdominal pain, cramping, fever or chills. He is agreeable to current plan of care and verbalizes understanding of instructions. He was given the opportunity to ask questions and all questions answered. Autoimmune labs 09/10/24 normal. Assessment & Plan (04/14/2025 11:34 AM EDT): Lab Results Component Value Date AST 24 01/28/2025 AST 29 08/19/2024 ALT 25 01/28/2025 ALT 40 08/19/2024 ALT 19 07/05/2022 ALT 18 06/20/2021 TOTALBILIRUB 0.6 01/28/2025 TOTALBILIRUB 1.1 (H) 08/19/2024 PLT 220 01/28/2025 CREATININE 0.77 01/28/2025 CREATININE 0.91 05/14/2021 NA 143 01/28/2025 -08/2024 US US/US abdomen complete IMPRESSION: Increased echogenicity of the liver parenchyma, this can be seen in the setting of hepatic steatosis or liver parenchymal disease. There are small liver cysts, and left renal cysts no follow-up imaging is indicated. -seen by GI Dr. Keen 09/16/24 We will rule out any autoimmune disorders to explain the increase echogenicity to his liver. Low- fat, low carb, low-salt and high-protein diet recommended. Patient is not moving his bowels very well. Increase fluid intake and activity to promote better bowel motility. Patient does report increased urinary frequency specially at night time, previously seen by Urology, currently has not been following up with anyone. History of BPH, CRAFT ARTIST has been checked on annual basis. Referral will be sent to urology. Patient has tried Flomax in the past and stopped as his libido decreased. Patient will follow-up in the office in 3 months, sooner on as needed basis. Patient will call us if he will have abdominal pain, cramping, fever or chills. He is agreeable to current plan of care and verbalizes understanding of instructions. He was given the opportunity to ask questions and all questions answered. Autoimmune labs 09/10/24 normal. Assessment & Plan (09/22/2024 3:26 PM EST): Lab Results Component Value Date AST 29 08/19/2024 AST 40 (H) 08/16/2024 ALT 40 08/19/2024 ALT 45 (H) 08/16/2024 ALT 19 07/05/2022 ALT 18 06/20/2021 TOTALBILIRUB 1.1 (H) 08/19/2024 TOTALBILIRUB 0.6 08/16/2024 PLT 270 08/16/2024 CREATININE 0.83 08/16/2024 CREATININE 0.91 05/14/2021 NA 142 08/16/2024 -08/2024 US US/US abdomen complete IMPRESSION: Increased echogenicity of the liver parenchyma, this can be seen in the setting of hepatic steatosis or liver parenchymal disease. There are small liver cysts, and left renal cysts no follow-up imaging is indicated. -seen by GI Dr. Keen 09/16/24 We will rule out any autoimmune disorders to explain the increase echogenicity to his liver. Low- fat, low carb, low-salt and high-protein diet recommended. Patient is not moving his bowels very well. Increase fluid intake and activity to promote better bowel motility. Patient does report increased urinary frequency specially at night time, previously seen by Urology, currently has not been following up with anyone. History of BPH, CRAFT ARTIST has been checked on annual basis. Referral will be sent to urology. Patient has tried Flomax in the past and stopped as his libido decreased. Patient will follow-up in the office in 3 months, sooner on as needed basis. Patient will call us if he will have abdominal pain, cramping, fever or chills. He is agreeable to current plan of care and verbalizes understanding of instructions. He was given the opportunity to ask questions and all questions answered. Autoimmune labs 09/10/24 normal. Appetite lost 08/16/2024 Overview (09/09/2024): I have been losing my appetite and now I've lost it. I started by eating less and skipping meals. Now I don't feel like eating at all. I have been forcing myself to eat. FThe foodsI normally like don't taste good. Assessment & Plan (08/16/2024 4:55 PM EST): Labs ordered I will start mirtazapine 15mg at bed time, side effects where discussed with patient, f/u with PCP Dry skin dermatitis 08/16/2024 Assessment & Plan (08/16/2024 4:55 PM EST): Apply BID on affected area no more than 2 weeks Tremor of both outstretched hands 03/24/2024 Overview (04/14/2025): -pt concerned his Amlodipine is causing the tremors, so stopped low dose, 5mg Amlodipine. -referred to Neurology for evaluation 03/24/24 -ordered labs 03/24/24 Saw Neurology 05/20/2024. Ordered EMG, BMP,ESR, JOHNY, and rheumatoid factor. Assessment & Plan (03/24/2024 2:44 PM EDT): -pt concerned his Amlodipine is causing the tremors, so stopped low dose, 5mg Amlodipine. -referred to Neurology for evaluation 03/24/24 -ordered labs 03/24/24 Dyslipidemia 03/24/2024 Overview (04/14/2025): Lab Results Component Value Date CHOL 182 03/26/2024 TRIG 113 03/26/2024 HDL 43 03/26/2024 LDLCHOLCAL 117 (H) 03/26/2024 -continue lifestyle modification -ordered repeat FLP and HFP 04/14/25 Assessment & Plan (04/14/2025 11:34 AM EDT): Lab Results Component Value Date CHOL 182 03/26/2024 TRIG 113 03/26/2024 HDL 43 03/26/2024 LDLCHOLCAL 117 (H) 03/26/2024 -continue lifestyle modification -ordered repeat FLP and HFP 04/14/25 Orders: Lipid Panel, Standard; Future Assessment & Plan (09/22/2024 3:24 PM EST): Lab Results Component Value Date CHOL 182 03/26/2024 TRIG 113 03/26/2024 HDL 43 03/26/2024 LDLCHOLCAL 117 (H) 03/26/2024 -continue lifestyle modification Routine screening for STI (sexually transmitted infection) 03/24/2024 Encounter for HIV pre-exposure prophylaxis 03/24 Overview (09/22/2024): -pt agrees to want to be on PrEP as he has been in the past -ordered PrEP 03/24/24 -Has been having safe sex, declines wanting HIV testing every 3 months. Assessment & Plan (09/22/2024 3:38 PM EST): -pt agrees to want to be on PrEP as he has been in the past -ordered PrEP 03/24/24 -Has been having safe sex, declines wanting HIV testing every 3 months. Assessment & Plan (03/24/2024 2:47 PM EDT): -pt agrees to want to be on PrEP as he has been in the past -ordered PrEP 03/24/24 Cardiac risk counseling 01/07/2024 Overview (04/14/2025): Calculated 04/14/25: High Risk The 10-year ASCVD risk score (Zac GRANT, et al., 2019) is: 27.2% Values used to calculate the score: Age: 70 years Sex: Male Is Non- : No Diabetic: No Tobacco smoker: No Systolic Blood Pressure: 144 mmHg Is BP treated: Yes HDL Cholesterol: 43 mg/dL Total Cholesterol: 182 mg/dL Lab Results Component Value Date LDLCHOL 123 (H) 07/05/2022 LDLCHOL 109 (H) 06/20/2021 -Tobacco cessation: not applicable -Statin therapy: Start Atorvastatin 20mg 03/24/24, discontinue 08/2024 due to elevated LFTs although mild and weight loss/anorexia -Importance of moderate physical activity and nutrition interventions discussed. -will recheck labs in 6 weeks -intolerant of statin, will recheck LDL 04/14/25. Assessment & Plan (04/14/2025 11:34 AM EDT): Calculated 04/14/25: High Risk The 10-year ASCVD risk score (Zac GRANT, et al., 2019) is: 27.2% Values used to calculate the score: Age: 70 years Sex: Male Is Non- : No Diabetic: No Tobacco smoker: No Systolic Blood Pressure: 144 mmHg Is BP treated: Yes HDL Cholesterol: 43 mg/dL Total Cholesterol: 182 mg/dL Lab Results Component Value Date LDLCHOL 123 (H) 07/05/2022 LDLCHOL 109 (H) 06/20/2021 -Tobacco cessation: not applicable -Statin therapy: Start Atorvastatin 20mg 03/24/24, discontinue 08/2024 due to elevated LFTs although mild and weight loss/anorexia -Importance of moderate physical activity and nutrition interventions discussed. -will recheck labs in 6 weeks -intolerant of statin, will recheck LDL 04/14/25. Assessment & Plan (03/24/2024 2:42 PM EDT): Calculated 03/24/24: High Risk The 10-year ASCVD risk score (Zac GRANT, et al., 2019) is: 18% Values used to calculate the score: Age: 69 years Sex: Male Is Non- : No Diabetic: No Tobacco smoker: No Systolic Blood Pressure: 126 mmHg Is BP treated: No HDL Cholesterol: 45 mg/dL Total Cholesterol: 190 mg/dL Lab Results Component Value Date LDLCHOL 123 (H) 07/05/2022 LDLCHOL 109 (H) 06/20/2021 -Tobacco cessation: not applicable -Statin therapy: Start Atorvastatin 20mg 03/24/24 -Importance of moderate physical activity and nutrition interventions discussed. -will recheck labs in 6 weeks Other specified health status 04/02/2023 Overview (04/14/2025): -next physical exam due after 04/14/25 -eye care facilitated by [facility] in [place] and Dr. Salmon -dental home is [facility] -health care proxy given 03/24/24 Assessment & Plan (04/14/2025 11:34 AM EDT): -next physical exam due after 04/14/25 -eye care facilitated by [facility] in [place] and Dr. Salmon -dental home is [facility] -health care proxy given 03/24/24 Assessment & Plan (03/24/2024 2:43 PM EDT): -next physical exam due after 03/24/25 -eye care facilitated by [facility] in [place] -dental home is [facility] -health care proxy given 03/24/24 Other male erectile dysfunction 08/03/2022 Overview (03/17/2025): -trial of sildenafil (Viagra) 100 MG tablet -seen by urologist Dr. Sigala 03/11/25,Prescribed daily low-dose tadalafil for potential benefits for benign prostatic hyperplasia and ED. - Check testosterone levels and other relevant hormones to assess the underlying cause of erectile dysfunction. - Schedule a bladder and prostate US. - Recheck PSA levels in six months to monitor prostate health. Assessment & Plan (09/22/2024 3:40 PM EST): Controlled on sildenafil (Viagra) 100 MG tablet Tubular adenoma 08/03/2022 Overview (05/14/2023): On colonoscopy in 2013 and 02/2018 Colonoscopy normal 05/14/[address] Mccann Renal cyst 03/01/2021 Overview (04/26/2025): Abdominal US 02/2021 Small liver and left renal cysts. 1 cm echogenic lesion in the right kidney questionable for an angiomyolipoma. This is not seen on previous CT from 2006. Follow-up CT or MRI of the kidneys should be considered. CT 05/14/2021 1. Small focal fatty lesion in the right kidney which may represent a small angiomyolipoma or perirenal fat extending into a focal scar, likely corresponding to the ultrasound finding. No suspicious right kidney lesions. 2. Hypodense left renal cysts. 3. Colonic diverticulosis without diverticulitis. 4. Soft tissue thickening in the region of the right inguinal canal of uncertain significance. Consider postoperative change. Correlate clinically. 5. Enlarged lobulated prostate gland. CT 04/2025 donei n ER IMPRESSION: Small amount of free fluid in the pelvis. Diverticulosis of the descending and sigmoid colon, without evidence of diverticulitis. -Left renal hyperdense cysts. The lower pole cyst is larger than on the prior study. Abnormal ultrasound of right kidney 03/01/2021 Bicuspid aortic valve 04/15/2019 Overview (02/18/2024): -Patient followed at [facility] with Dr. Lincoln Plascencia DO. Seen 02/17/24 recommend follow up 1 year Assessment & Plan (04/14/2025 11:34 AM EDT): -Patient followed at [facility] with Dr. Lincoln Plascencia DO. Seen 02/17/24 recommend follow up 1 year Assessment & Plan (03/24/2024 2:36 PM EDT): -Patient followed at [facility] with Dr. Lincoln Plascencia DO. Seen 02/17/24 recommend follow up 1 year Ventricular septal defect 04/15/2019 Overview (09/22/2024): Seen by cardiology 03/2021, no concerns. -Patient followed at [facility] with Dr. Lincoln Plascencia DO. Seen 02/17/24 recommend follow up 1 year Assessment & Plan (04/14/2025 11:34 AM EDT): Seen by cardiology 03/2021, no concerns. -Patient followed at [facility] with Dr. Lincoln Plascencia DO. Seen 02/17/24 recommend follow up 1 year Assessment & Plan (09/22/2024 3:22 PM EST): Seen by cardiology 03/2021, no concerns. -Patient followed at [facility] with Dr. Lincoln Plascencia DO. Seen 02/17/24 recommend follow up 1 year Essential hypertension 01/14/2019 Overview (03/16/2025): -Doing well on current medication, on goal. -referred to [facility] 09/2021 -Continue amlodipine 5mg daily by cardiology -Patient followed at [facility] with Dr. Lincoln Plascencia DO. Seen 03/10/25. No changes. recommend follow up 1 year -pt reports stable BP's over the past few weeks, give concern for tremors being caused by his Amlodipine, offered switching to a beta-nara. -pt requested to stop Amlodipine and evaluate his BP to see if he even needs to be on blood pressure medication. -03/24/24, Stop Amlodipine 5mg -Pt reported BP's creeping up and restarted Amlodipine 04/14/24. Assessment & Plan (04/14/2025 11:34 AM EDT): -Doing well on current medication, at goal today. -referred to [facility] 09/2021 -Continue amlodipine 5mg daily by cardiology -Patient followed at [facility] with Dr. Lincoln Plascencia DO. Seen 03/10/25. No changes. recommend follow up 1 year -pt reports stable BP's over the past few weeks, give concern for tremors being caused by his Amlodipine, offered switching to a beta-nara. -pt requested to stop Amlodipine and evaluate his BP to see if he even needs to be on blood pressure medication. -03/24/24, Stop Amlodipine 5mg -Pt reported BP's creeping up and restarted Amlodipine 04/14/24. Assessment & Plan (09/22/2024 3:22 PM EST): -Doing well on current medication, on goal. -referred to [facility] 09/2021 -Continue amlodipine 5mg daily by cardiology -Patient followed at [facility] with Dr. Lincoln Plascencia DO. Seen 02/17/24 recommend follow up 1 year -pt reports stable BP's over the past few weeks, give concern for tremors being caused by his Amlodipine, offered switching to a beta-nara. -pt requested to stop Amlodipine and evaluate his BP to see if he even needs to be on blood pressure medication. -03/24/24, Stop Amlodipine 5mg -Pt reported BP's creeping up and restarted Amlodipine 04/14/24. Assessment & Plan (03/24/2024 2:39 PM EDT): -Doing well on current medication, on goal. -referred to [facility] 09/2021 -Continue amlodipine 5mg daily by cardiology -Patient followed at [facility] with Dr. Lincoln Plascencia DO. Seen 02/17/24 recommend follow up 1 year -pt reports stable BP's over the past few weeks, give concern for tremors being caused by his Amlodipine, offered switching to a beta-nara. -pt requested to stop Amlodipine and evaluate his BP to see if he even needs to be on blood pressure medication. -03/24/24, Stop Amlodipine 5mg -will recheck in 3 months Obstructive sleep apnea syndrome 06/23/2014 Overview (06/05/2023): Mild to moderate ALEC diagnosed on sleep study 05/2014. Not tolerant of mask. Benign prostatic hyperplasia 10/21/2013 Overview (03/17/2025): Enlarged prostate gland on CAT scan 04/2021, but had a negative biopsy in the past. He was followed by urology, last seen on November 2013, for benign prostate hyperplasia. PSA February 2018 was 2.4, his father has a h/o prostate cancer. PSA 06/2021 4.1 -finasteride 5mg started 07/04/22 03/24/24 -reports urinating without problems -still follows with Urologist 02/2025 -seen by Dr. Wild Sigala - Prescribe daily low-dose tadalafil for potential benefits for benign prostatic hyperplasia and ED. - Check testosterone levels and other relevant hormones to assess the underlying cause of erectile dysfunction. - Schedule a bladder and prostate US. - Recheck PSA levels in six months to monitor prostate health. - Discuss the use of GoodRx coupons to manage the cost of tadalafil if insurance does not cover it. Lab Results Component Value Date PSA 4.09 (H) 03/12/2025 Assessment & Plan (04/14/2025 11:34 AM EDT): Enlarged prostate gland on CAT scan 04/2021, but had a negative biopsy in the past. He was followed by urology, last seen on November 2013, for benign prostate hyperplasia. PSA February 2018 was 2.4, his father has a h/o prostate cancer. PSA 06/2021 4.1 -finasteride 5mg started 07/04/22 03/24/24 -reports urinating without problems -still follows with Urologist 02/2025 -seen by Dr. Wild Sigala - Prescribe daily low-dose tadalafil for potential benefits for benign prostatic hyperplasia and ED. - Check testosterone levels and other relevant hormones to assess the underlying cause of erectile dysfunction. - Schedule a bladder and prostate US. - Recheck PSA levels in six months to monitor prostate health. - Discuss the use of GoodRx coupons to manage the cost of tadalafil if insurance does not cover it. Lab Results Component Value Date PSA 4.09 (H) 03/12/2025 Assessment & Plan (03/24/2024 2:50 PM EDT): Enlarged prostate gland on CAT scan 04/2021, but had a negative biopsy in the past. He was followed by urology, last seen on November 2013, for benign prostate hyperplasia. PSA February 2018 was 2.4, his father has a h/o prostate cancer. PSA 06/2021 4.1 -finasteride 5mg started 07/04/22 03/24/24 -reports urinating without problems -still follows with Urologist Depressive disorder 09/30/2012 Resolved Problems Problem Noted Date Diagnosed Date Resolved Date Encounter for hepatitis C sc reening test for low risk patient 03/24/2024 09/09/2024 Physical exam 03/24/2024 09/09/2024 Dental caries 10/30/2023 02/18/2024 Dental calculus 10/07/2023 02/18/2024 Localized gingival recession 10/07/2023 02/18/2024 Missing teeth, acquired 10/07/2023/0 01/2024 Colon polyps 06/05/2023 02/18/2024 Heart murmur 06/05/2023 02/18/2024 Recurrent right inguinal hernia 06/05/2023 02/18/2024 Overview (06/05/2023): With Dr. Duenas 02/2021. Encounters Date Type Department Care Team Description 05/04/2025 Results Follow-Up [address] [place] [address] Luanne Perez MD Iron And Total Iron Binding Capacity, Ferritin, C-reactive Protein, Additional followed-up results: 10 05/03/2025 1:30 PM EDT Office Visit [facility] [place] [address] Luanne Perez MD Other fatigue (Primary Dx); Boil 05/03/2025 Travel 04/30/2025 Travel 04/29/2025 Telephone [facility] [place] [address] Génesis Bruno MD 04/26/2025 Orders Only [facility] [place] [address] Génesis Bruno MD Hypogonadism in male (Primary Dx) 04/25/2025 Orders Only GENERIC EXTERNAL DATA DEPARTMENT Provider, Generic External Data Renal cyst (Primary Dx) 04/18/2025 Telephone [facility] [place] [address] Génesis Bruno MD Faxed Result to Urologist 04/14/2025 9:15 AM EDT Office Visit [facility] [place] [address] Génesis Bruno MD Ventricular septal defect (Primary Dx); Essential hypertension; Dyslipidemia; Bicuspid aortic valve; Elevated LFTs; Benign prostatic hyperplasia without lower urinary tract symptoms; Elevated PSA; Hypogonadism in male; Dietary deficiency; Cardiac risk counseling; Positive depression screening; Right ear impacted cerumen; Other specified health status; Impacted cerumen of right ear 04/14/2025 Travel 04/13/2025 Telephone [facility] [address] [place] [phone] Génesis Bruno MD CHART PREP 04/12/[address] [address] Génesis Bruno MD 04/07/2025 Patient Outreach [address] [address] Génesis Bruno MD Pre-visit Planning (Pre-visit planning - LVM ) 04/07/2025 Travel 03/12/2025 Orders Only GENERIC EXTERNAL DATA DEPARTMENT Provider, Generic External Data from Last 3 Months Immunizations Immunization Administration Dates Next Due Hep A, Adult 10/28/2007,05/08/2007 Hep B, adult 01/15/2008,10/28/2007,05/08/2007 Influenza High-dose Quadriva lent Preservative Free 06/26/2022,06/20/2021 Influenza injectable quadriv alent preservative free 06/05/2023,08/26/2016,09/07/2015 Influenza, High Dose Seasona l, Preservative Free 08/06/2024,09/02/2019 Influenza, IIV3, injectable 06/23/2014 Influenza, Split (incl. emigdio fied surface antigen) 10/21/2013,09/30/2012 Influenza, seasonal, injecta ble, preservative free 05/25/2020 Moderna Covid-19 Vaccine 12+ 12/24/2021,12/15/19 21,11/16/2020 Pfizer Covid-19 Vaccine 12+ 08/06/2024, 3,07/09/2021 Pfizer Covid-19 Vaccine 12+ Bivalent 06/26/2022 Pneumococcal Conjugate PCV 13 09/02/2019 Pneumococcal Polysaccharide PPSV23 06/05/2022 TD (adult), 2 Lf tetanus tox oid, preservative free, adsorbed 10/28/2007 Tdap 02/16/2024,10/21/2013 Zoster, Recombinant 08/15/2022,06/05/2022 Zoster, live 10/21/2013 Family History Medical History Relation Name Comments Lung cancer Father Prostate cancer Father Breast cancer Mother Relation Name Status Comments Father Mother Social History Tobacco Use Types Packs/Day Years Used Date Smoking Tobacco: Never Passive Smoke Exposure: Never Smokeless Tobacco: Never Tobacco Cessation:Counseling Given: Not Answered Alcohol Use Standard Drinks/Week Comments Never 0 [...] 10:19 AM EDT Sexual Orientation Lesbian or Hernandze 07/15/2022 10 :19 AM EDT Last Filed Vital Signs Vital Sign Reading Time Taken Comments Blood Pressure 114/58 05/03/2025 1:26 PM EDT Pulse 69 05/03/2025 1:26 PM EDT Temperature 36.3 C (97.3 F) 05/03/2025 1:26 PM EDT Respiratory Rate 18 05/03/2025 1:26 PM EDT Oxygen Saturation 98% 05/03/2025 1:26 PM EDT Inhaled Oxygen Concentration - - Weight 77.6 kg (171 lb) 05/03/2025 1:26 PM EDT Height 180.3 cm (5' 11 ) 05/03/2025 1:26 PM EDT Body Mass Index 23.85 05/03/2025 1:26 PM EDT Plan of Treatment Upcoming Encounters Date Type Department Care Team (Late st Contact Info) Description 07/27/2025 2:00 PM EST Office Visit [facility] [address] [place] [address] Génesis Bruno MD [address] [place] [address] Health Maintenance Due Date Last Done Comments CT Colonography 1955 FIT DNA/Cologuard 1955 FIT 1955 FOBT 1955 Sigmoidoscopy 1955 RSV Patients and Patients Aged 60 years or older (1 - Risk 60-74 years 1-dose series) 2014 Dental Oral Exam 04/07/2024 10/07/2023 Dental Prophylaxis 04/07/2024 10/07/2023 Dental X-Ray: Bitewings 10/08/2024 10/07/2023 COVID-19 Vaccine ( season) 2025 08/06/2024, 07/16/2023, 06/26/2022, Additional history exists Influenza Vaccine (#1) 2025 , 06/05/2023, 06/26/2022, Additional history exists Alcohol/Substance Use Screening 09/22/2025 09/22/2024 SDOH Screening 04/14/2026 04/14/2025 Depression Screening 05/03/2026 05/03/2025, 05/03/20 25 Tobacco Screening 05/03/2026 05/03/2025 Dental X-Ray: Full Mouth 10/08/2026 10/07/2023 Colonoscopy 05/14/2028 05/14/2023, 02/26/2018 Colorectal Cancer Screening 05/14/2028 Lipid Panel 04/14/2030 04/14/2025, 03/15, 07/05/2022, Additional history exists DTaP/Tdap/Td Vaccines (3 - Td or Tdap) 02/15/2034 02/16/2024, 10/21/2013, 10/28/2007 Hepatitis A Vaccines Discontinued 10/28/2007, 05/08/20 07 Hepatitis B Vaccines Completed 01/15/2008, 10/28/2007, 05/08/2007 Pneumococcal Vaccine: 50+ Years Completed 06/05/2022, 09/02/2019 Zoster Vaccines Completed 08/15/2022, 05/17, 10/21/2013 Diabetes: Hemoglobin A1C Discontinued 08/16/2024, 02/2021 Hepatitis C Screening Completed 05/03/2025 , 08/16/2024, 03/26/2024 Anal Pap Discontinued HIB Vaccines Aged Out No longer eligi ble based on patient's age to complete this topic HPV Vaccines Aged Out No longer eligi ble based on patient's age to complete this topic IPV Vaccines Aged Out No longer eligi ble based on patient's age to complete this topic Meningococcal B Vaccine Aged Out No l onger eligible based on patient's age to complete this topic Meningococcal Vaccine Aged Out No gunjan ino eligible based on patient's age to complete this topic RSV under 20 months Aged Out No longe r eligible based on patient's age to complete this topic Rotavirus Vaccines Aged Out No longer eligible based on patient's age to complete this topic Procedures Procedure Name Priority Date/Time Associated Diagnosis Comments ECG 12-LEAD Routine 05/03/2025 3:38 PM EDT Other fatigue JOHNY SCREEN, IFA, W/REFL TITER AND PATTERN Routine 05/03/2025 2:44 PM EDT Other fatigue CBC Routine 05/03/2025 2:44 PM EDT Other fatigue VITAMIN D,25-OH,TOTAL,IA Routine 05/03/2025 2:44 PM EDT Other fatigue VITAMIN B12/FOLATE, SERUM PANEL Routine 05/03/2025 2:44 PM EDT Other fatigue TSH W/REFLEX TO FT4 Routine 05/03/2025 2 :44 PM EDT Other fatigue SYPHILIS SCREEN Routine 05/03/2025 2:44 PM EDT Other fatigue HIV 1/2 ANTIGEN/ANTIBODY, FOURTH GENERATION W/RFL Routine 05/03/2025 2:44 PM EDT Other fatigue HEPATITIS C AB W/REFL TO HCV RNA, QN, PCR Routine 05/03/2025 2:44 PM EDT Other fatigue HEPATITIS B SURFACE ANTIGEN, EIA Routine 05/03/2025 2:44 PM EDT Other fatigue SED RATE BY MODIFIED WESTERGREN Routine 05/03/2025 2:44 PM EDT Other fatigue C-REACTIVE PROTEIN Routine 05/03/2025 2: 44 PM EDT Other fatigue FERRITIN Routine 05/03/2025 2:44 PM EDT Other fatigue IRON AND TOTAL IRON BINDING CAPACITY Routine 05/03/2025 2:44 PM EDT Other fatigue CT ABDOMEN PELVIS W CONTRAST Routine 04/25/2025 9:39 AM EDT URINALYSIS, COMPLETE, WITH REFLEX TO CULTURE Routine 04/25/2025 8:56 AM EDT LIPASE Routine 04/25/2025 4:17 AM EDT COMPREHENSIVE METABOLIC PANEL Routine 04/25/2025 4:17 AM EDT SLIDE REVIEW Routine 04/25/2025 4:17 AM EDT CBC WITH AUTO DIFFERENTIAL Routine 04/25/2025 4:17 AM EDT LIPID PANEL, STANDARD Routine 04/14/2025 9:52 AM EDT Dyslipidemia TESTOSTERONE, TOTAL, MALES (ADULT), IA Routine 04/14/2025 9:52 AM EDT Hypogonadism in male TESTOSTERONE, FREE (DIALYSIS) AND TOTAL,MS Routine 03/12/2025 8:48 AM EDT LH Routine 03/12/2025 8:48 AM EDT FSH Routine 03/12/2025 8:48 AM EDT TSH W/REFLEX TO FT4 Routine 03/12/2025 8 :48 AM EDT T4, FREE Routine 03/12/2025 8:48 AM EDT PSA, TOTAL Routine 03/12/2025 8:48 AM EDT HEMOGLOBIN A1C Routine 08/16/2024 1:44 PM EST Loss of appetite PROPHYLAXIS - ADULT Routine 10/07/2023 1 :00 PM EST Dental calculus Localized gingival recession Missing teeth, acquired INTRAORAL - COMPLETE SERIES OF RADIOGRAPHIC IMAGES Routine 10/07/2023 1:00 PM EST Dental calculus PERIODIC ORAL EVALUATION - ESTABLISHED PATIENT Routine 10/07/2023 1:00 PM EST HM COLONOSCOPY Routine 05/14/2023 from Last 3 Months or Most Recently Relevant to Health Maintenance Results * ECG 12 lead (05/03/2025 3:38 PM EDT) Narrative Luanne Perez MD - 05/03/2025 3:38 PM EDT EKG today HR 57x' Qtc 437 ,NSR ,does not appear acute findings -read septal infarct enlarge T wave in lead V3 ,not in V2 -from obtained previous EKG report in 2020-not able to see actual EKG reported hx of septal infarct so no new findings us Luanne Pearl MD ECG ORDERABLES F inal Result * Syphilis Screen (05/03/2025 2:44 PM EDT) Syphilis Screen Nonreactive Nonreactive [facility] Blood 05/03/2025 2:44 PM EDT 05/03/2025 4:17 PM EDT us Luanne Pearl MD LAB BLOOD ORDERAB LES Final Result Performing Organization Address City/[facility]/ZIP Co de Phone Number [facility] [address] [place] [phone] * Vitamin D, 25-Hydroxy, Total, Immunoassay (05/03/2025 2:44 PM EDT) Pathologist [facility] Vitamin D 25-OH Total 63.3 >30 ng/mL [facility] Comment: Health Based Reference Values*< 20 ng/mL Dlxmsfcyo20-17 ng/mL Insufficient> 30 ng/mL Sufficient*Katie BABIN. N Engl J Med. 2007;357:266-280There is no well-established upper level of normal vitamin Dlevels. Some laboratories use 50 ng/mL as an upper limit ofnormal. However, toxicity is patient-dependent and may occurat any level. Careful correlation with the patient'spresentation is necessary and, if there is concern forvitamin D toxicity, treatment should be consideredirrespective of the serum level.Care must be taken in interpreting Vitamin D results fromdifferent laboratories and methodologies. Published datademonstrated that results from patients undergoinghemodialysis may show a negative bias when tested withvarious automated 25-OH vitamin D assays when compared toLC-MS/MS.When testing samples from patients whose predominant form ofVitamin D is Vitamin D2, such as patients receiving VitaminD2 supplementation, results that are subtherapeutic shouldbe confirmed with another method such as LC-MS/MS. Blood Venous blood specimen / Unknown 05/03/2025 2:44 PM EDT 05/03/2025 4:17 PM EDT Luanne Pearl MD LAB BLOOD ORDERAB LES Final Result Performing Organization Address City/[facility]/ZIP Co de Phone Number [facility] [address] [place] [phone] * Vitamin B12 (Cobalamin) and Folate Panel, Serum (05/03/2025 2:44 PM EDT) Vitamin B12 741 200 - 900 pg/mL [facility] Comment:NORMAL 200-900 PG/M L INDETERMINATE 160-199 PG/ML DEFICIENT < 160 PG/ML Folate 12.7 > or = 4.0 ng/mL [facility] Comment:Reference Values:> o r = 4.0 ng/mL< 4.0 ng/mL suggests folate deficiency Methotrexate, aminopterin and folinic acid(leucovorin) are chemotherapeutic agents whose molecularstructures are similar to folate; therefore, the Architectfolate assay cannot be used for patients using these drugs. Blood 05/03/2025 2:44 PM EDT 05/03/2025 4:17 PM EDT us Luanne Pearl MD LAB BLOOD ORDERAB LES Final Result Performing Organization Address City/[facility]/ZIP Co de Phone Number [facility] [address] [place] [phone] * TSH with Reflex to Free T4 (05/03/2025 2:44 PM EDT) Only the most recent of2 resultswithin the time period is included. TSH reflex Free T4 1.07 0.32 - 4.0 uIU/mL [facility] Blood 05/03/2025 2:44 PM EDT 05/03/2025 4:17 PM EDT us Luanne Pearl MD LAB BLOOD ORDERAB LES Final Result Performing Organization Address City/[facility]/ZIP Co de Phone Number [facility] [address] [place] [phone] [phone] * Hepatitis C Antibody with Reflex to HCV, RNA, Quantitative, Real-Time PCR (05/03/2025 2:44 PM EDT) Pathologist [facility] Hepatitis C Antibody Nonreactive Nonreactive [facility] Comment:Antibodies to HCV no t detected; does not exclude early acuteHCV infection. Blood Venous blood specimen / Unknown 05/03/2025 2:44 PM EDT 05/03/2025 4:17 PM EDT us Luanne Pearl MD LAB BLOOD ORDERAB LES Final Result Performing Organization Address City/[facility]/ZIP Co de Phone Number [facility] [address] [place] [phone] * Iron And Total Iron Binding Capacity (05/03/2025 2:44 PM EDT) [facility] Iron 120 45 - 160 mcg/dL [facility] Total Iron Binding Capacity 266 228 - 428 mcg/dL [facility] Percent Iron Saturation 45 15 - 50 % [facility] Unsaturated Iron Binding 146 ug/dL [facility] Blood Venous blood specimen / Unknown 05/03/2025 2:44 PM EDT 05/03/2025 4:17 PM EDT us Luanne Pearl MD LAB BLOOD ORDERAB LES Final Result Performing Organization Address [facility] Co de Phone Number [facility] [address] [place] [phone] * Hepatitis B surface antigen, EIA (05/03/2025 2:44 PM EDT) [facility] Hepatitis B Surface Ag Negative Negative [facility] Blood Venous blood specimen / Unknown 05/03/2025 2:44 PM EDT 05/03/2025 4:17 PM EDT us Luanne Pearl MD LAB BLOOD ORDERAB LES Final Result Performing Organization Address City/[facility]/ZIP Co de Phone Number [facility] [address] [place] [phone] * HIV-1/2 Antigen and Antibodies, Fourth Generation, with Reflexes (05/03/2025 2:44 PM EDT) [facility] HIV AB/AG Nonreactive Nonreactive [facility] Comment:HIV-1 p24 Ag and/or HIV-1/HIV-2 Ab not detected.A test result that is nonreactive does not exclude thepossibility of exposure to or infection with HIV-1 and/orHIV-2. Nonreactive results in this assay for individualswith prior exposure to HIV-1 and/or HIV-2 may be due toantigen and antibody levels that are below the limit ofdetection of this assay.The [employer] HIV Ag/Ab Combo assay result andsupplemental assay results should be interpreted inconjunction with the patient's clinical presentation,history and other laboratory results. If the results areinconsistent with clinical evidence, additional testing issuggested to confirm the result. Blood Venous blood specimen / Unknown 05/03/2025 2:44 PM EDT 05/03/2025 4:17 PM EDT us Luanne Pearl MD LAB BLOOD ORDERAB LES Final Result Performing Organization Address [facility]/ZIP Co de Phone Number [facility] [address] [place] [phone] * Sed Rate by Modified Westergren (05/03/2025 2:44 PM EDT) [facility] Erythrocyte Sedimentation Rate 4 0 - 15 MM/HR [facility] Comment:Patients with polycy themia and many hemoglobin abnormalitiesmay have depressed sed rates whereas patients with anemiamay have elevated sed rates. Blood Venous blood specimen / Unknown 05/03/2025 2:44 PM EDT 05/03/2025 4:17 PM EDT us Luanne Pearl MD LAB BLOOD ORDERAB LES Final Result Performing Organization Address [facility]/ZIP Co de Phone Number [facility] [address] [place] [phone] * (ABNORMAL) CBC (05/03/2025 2:44 PM EDT) Pathologist [facility] White Blood Count 6.8 4.8 - 10.8 X10*3/uL [facility] Red Blood Count 4.48(L) 4.60 - 5.80 X10*6/uL [facility] Hemoglobin 14.0 14.0 - 18.0 g/dl [facility] Hematocrit 41.4(L) 42.0 - 52.0 % [facility] Mean Corpuscular Volume 92.4 80.0 - 98.0 fL [facility] Mean Corpuscular Hemoglobin 31.3 27.0 - 33.0 pg [facility] Mean Corpuscular HGB Conc 33.8 31.0 - 36.0 g/dl [facility] Red Cell Distribution Width 12.5 11.0 - 16.0 % [facility] Platelet Count 217 160 - 400 X10*3/uL [facility] Mean Platelet Volume 10.5 9.4 - 12.4 fL [facility] NRBC Pct Auto 0.0 0.0 - 0.2 /100WBC [facility] NRBC Abs Auto 0.000 0.0 - 0.012 X10*3/uL [facility] Blood Venous blood specimen / Unknown 05/03/2025 2:44 PM EDT 05/03/2025 4:17 PM EDT us Luanne Pearl MD LAB BLOOD ORDERAB LES Final Result [facility] [address] [place] [phone] * C-reactive Protein (05/03/2025 2:44 PM EDT) [facility] C Reactive Protein <0.10 < or = 0.50 mg/dL [facility] Blood Venous blood specimen / Unknown 05/03/2025 2:44 PM EDT 05/03/2025 4:17 PM EDT us Luanne Pearl MD LAB BLOOD ORDERAB LES Final Result Performing Organization Address [facility]/ZIP Co de Phone Number [facility] [address] [place] [phone] * JOHNY Screen,IFA, with Reflex to Titer and Pattern (05/03/2025 2:44 PM EDT) Anti Nuclear Antibody Screen NEGATIVE NEGATIVE [facility] Comment:JOHNY IFA is a first l ine screen for detecting thepresence of up to approximately 150 autoantibodies invarious autoimmune diseases. A negative JOHNY IFA resultsuggests an JOHNY-associated autoimmune disease is notpresent at this time, but is not definitive. If thereis high clinical suspicion for Sjogren's syndrome,testing for anti-SS-A/Ro antibody should be considered.Anti-Michelle-1 antibody should be considered for clinicallysuspected inflammatory myopathies.AC-0: NegativeInternational Consensus on JOHNY Patterns(https://doi.org/10.1515/qsuu-2375-2989)For additional information, please refer tohttp://education.Applaud/faq/VSD740(This link is being provided for informational/educational purposes only.)THIS TEST WAS PERFORMED AT:[employer] [place] [phone] HORVATH MD JOHNY Titer TNP [facility] JOHNY Pattern TNP [facility] JOHNY TITER 2 (REF LAB) [facility]NY [facility] 2 [facility] JOHNY TITER 3 [facility] JOHNY PATTERN 3 [facility] Blood Venous blood specimen / Unknown 05/03/2025 2:44 PM EDT 05/03/2025 4:17 PM EDT us Luanne Pearl MD LAB BLOOD ORDERAB LES Final Result [facility] [address] [place] [phone] * Ferritin (05/03/2025 2:44 PM EDT) Ferritin 143 20 - 250 ng/mL [facility] Blood Venous blood specimen / Unknown 05/03/2025 2:44 PM EDT 05/03/2025 4:17 PM EDT us Luanne Pearl MD LAB BLOOD ORDERAB LES Final Result [facility] [address] [place] [phone] * CT Abdomen Pelvis w/ Contrast (04/25/2025 9:39 AM EDT) Anatomical Region Laterality Modality Body, Pelvis, Abdomen Computed T omography 04/25/2025 9:39 AM EDT Narrative 04/25/2025 11:05 AM EDT [address] [address] [address] Scan Report Signed Patient: Sukhjinder Chambers MR#: [id number] : 1955 Acct:[id number] Age/Sex: 70 / M ADM Date: 04/25/25 Loc: .ED Attending Dr: Ordering Physician: Izabel Mackenzie Date of Service: 04/25/25 Procedure(s): CT abdomen pelvis w IV con Accession Number(s): [id number] cc: Génesis Bruno MD; Izabel Mackenzie Report Number: [id number]: Total DLP = 517.00 mGy-cm EXAMINATION: CT ABDOMEN PELVIS WITH IV CONTRAST HISTORY: severe abd pain, vomiting COMPARISON: Comparison is made with the prior examination dated 05/14/2021. TECHNIQUE: CT scan of the abdomen and pelvis was performed following administration of 85 mL Omnipaque 350 using standard departmental protocol. Coronal and sagittal reformatted images were generated and reviewed. Oral contrast material was not administered at the request of the referring physician. This CT exam was performed with one or more of the following dose reduction techniques: automated exposure control, adjustment of the mA and/or kV according to patient size, use of iterative reconstruction technique. DLP: 517 mGy-cm FINDINGS: LOWER CHEST: The visualized lung bases are clear. There is no pleural effusion. CARDIOVASCULATURE: The heart is normal in size. There is no pericardial effusion. LIVER: The liver is normal in size and contour. Again seen are scattered cysts within the liver measuring up to 12 mm in size. The hepatic and portal veins are patent. GALLBLADDER / BILE DUCTS: The gallbladder is unremarkable. There is no intra or extrahepatic biliary ductal dilatation. SPLEEN: The spleen is normal in size. No focal splenic lesion is identified. PANCREAS: The pancreas is unremarkable in appearance. ADRENAL GLANDS: Within normal limits. KIDNEYS/RETROPERITONEUM: No renal calculi are identified. There is no hydronephrosis. There is a 10 mm hyperdense lesion at the upper pole of the left kidney and a 2.5 cm hyperdense lesion at the lower pole, compatible with hyperdense cysts. These were present previously, although the lower pole lesion is slightly larger (previously 1.6 cm). LYMPH NODES: No abdominal or pelvic lymphadenopathy. VASCULATURE: The abdominal aorta is normal in caliber. MESENTERY/PERITONEUM: There is a small amount of free fluid in the pelvis. No masses. There is no free intraperitoneal gas. STOMACH: The stomach is collapsed, limiting evaluation. SMALL BOWEL: The small bowel is normal in caliber. COLON: There is diverticulosis of the descending and sigmoid colon, without evidence of diverticulitis. APPENDIX: The appendix is not seen, however no inflammatory changes are seen adjacent to the cecum. URINARY BLADDER/PELVIC ORGANS: The urinary bladder is unremarkable. The prostate is mildly enlarged. BONES / SOFT TISSUES: There are probable postsurgical changes in the right internal region without significant change from the prior study. There is degenerative disc disease of the spine. CT/CT abdomen pelvis w IV con IMPRESSION: 1. Small amount of free fluid in the pelvis. Diverticulosis of the descending and sigmoid colon, without evidence of diverticulitis. 2. Left renal hyperdense cysts. The lower pole cyst is larger than on the prior study. Electronically signed by: Beto Hughes MD 04/25/2025 11:01 AM EDT RP Dictated By: Beto Hughes MD Signed By: <Electronically signed by Beto Hughes MD in OV> 04/25/25 1101 DD/ 0939 TD/TT: 04/25/25 1039 Keno Writer / Runner: Procedure Note Donotuseinterpreter, Image - 04/25/[address] [address] [address] Scan Report Signed Patient: Sukhjinder Chambers PMR#: [id number] : 1955cct:[id number] Age/Sex: 70 / MADM Date: 04/25/25 Loc: HO.ED Attending Dr: Ordering Physician: Izabel Mackenzie Date of Service: 04/25/25 Procedure(s): CT abdomen pelvis w IV con Accession Number(s): [id number] cc: Génesis Bruno MD; Izabel Mackenzie Report Number: [id number]: Total DLP = 517.00 mGy-cm EXAMINATION: CT ABDOMEN PELVIS WITH IV CONTRAST HISTORY: severe abd pain, vomiting COMPARISON: Comparison is made with the prior examination dated 05/14/2021. TECHNIQUE: CT scan of the abdomen and pelvis was performed following administration of 85 mL Omnipaque 350 using standard departmental protocol. Coronal and sagittal reformatted images were generated and reviewed. Oral contrast material was not administered at the request of the referring physician. This CT exam was performed with one or more of the following dose reduction techniques: automated exposure control, adjustment of the mA and/or kV according to patient size, use of iterative reconstruction technique. DLP: 517 mGy-cm FINDINGS: LOWER CHEST: The visualized lung bases are clear. There is no pleural effusion. CARDIOVASCULATURE: The heart is normal in size. There is no pericardial effusion. LIVER: The liver is normal in size and contour. Again seen are scattered cysts within the liver measuring up to 12 mm in size. The hepatic and portal veins are patent. GALLBLADDER / BILE DUCTS: The gallbladder is unremarkable. There is no intra or extrahepatic biliary ductal dilatation. SPLEEN: The spleen is normal in size. No focal splenic lesion is identified. PANCREAS: The pancreas is unremarkable in appearance. ADRENAL GLANDS: Within normal limits. KIDNEYS/RETROPERITONEUM: No renal calculi are identified. There is no hydronephrosis. There is a 10 mm hyperdense lesion at the upper pole of the left kidney and a 2.5 cm hyperdense lesion at the lower pole, compatible with hyperdense cysts. These were present previously, although the lower pole lesion is slightly larger (previously 1.6 cm). LYMPH NODES: No abdominal or pelvic lymphadenopathy. VASCULATURE: The abdominal aorta is normal in caliber. MESENTERY/PERITONEUM: There is a small amount of free fluid in the pelvis. No masses. There is no free intraperitoneal gas. STOMACH: The stomach is collapsed, limiting evaluation. SMALL BOWEL: The small bowel is normal in caliber. COLON: There is diverticulosis of the descending and sigmoid colon, without evidence of diverticulitis. APPENDIX: The appendix is not seen, however no inflammatory changes are seen adjacent to the cecum. URINARY BLADDER/PELVIC ORGANS: The urinary bladder is unremarkable. The prostate is mildly enlarged. BONES / SOFT TISSUES: There are probable postsurgical changes in the right internal region without significant change from the prior study. There is degenerative disc disease of the spine. CT/CT abdomen pelvis w IV con IMPRESSION: 1. Small amount of free fluid in the pelvis. Diverticulosis of the descending and sigmoid colon, without evidence of diverticulitis. 2. Left renal hyperdense cysts. The lower pole cyst is larger than on the prior study. Electronically signed by: Beto Hughes MD 04/25/2025 11:01 AM EDT Dictated By: Beto Hughes MD Signed By: <Electronically signed by Beto Hughes MD in OV> 04/25/25 1101 DD/ 0939 TD/TT: 04/25/25 1039 Keno Writer / Runner: [facility] External Provider IMG CT PROCEDURES Final Result * Urinalysis, Complete, with Reflex to Culture (04/25/2025 8:56 AM EDT) Color Urine Yellow [facility] Appearance Urine Clear [facility] PH 7.5 5.0 - 9.0 [facility] Glucose Urine UA Negative Negative mg/dL [facility] Urine Blood Negative Negative [facility] Specific [place] - Urine <=1.005 1.005 - 1.025 [facility] Urine Protein Negative Neg-Trace mg/dL [facility] Urine Ketones Negative Negative mg/dL [facility] Nitrite Urine Negative Negative [facility] Leukocyte Esterase Urine Negative Negative [facility] RBC Urine 0-2 0 - 2 /HPF [facility] Urine WBC 0-5 0 - 5 /HPF [facility] Urine Squamous Epithelial Cell 0-2 0 - 2 /HPF [facility] Urine Bacteria None Seen None Seen [facility] Hyaline Casts, Urine 0-2 0 - 2 /LPF [facility] 04/25/2025 8:56 AM EDT 04/25/2025 8:58 AM EDT Narrative [facility] - 04/25/2025 9:09 AM EDT [id number], Clean Catch us Generic External Data Provider LAB URINE ORDERAB LES Final Result Performing Organization Address [facility]/ZIP Co de Phone Number [facility] [address] [place] [address] [phone] * Slide Review (04/25/2025 4:17 AM EDT) Slide Review VERIFIED [facility] 04/25/2025 4:17 AM EDT 04/25/2025 4:20 AM EDT us Generic External Data Provider LAB BLOOD ORDERAB LES Final Result Performing Organization Address [facility]/ZIP Co de Phone Number [facility] [address] [place] [address] [phone] * (ABNORMAL) CBC auto differential (04/25/2025 4:17 AM EDT) White Blood Count 12.3(H) 4.8 - 10.8 X10*3/uL [facility] Red Blood Count 4.56(L) 4.60 - 5.80 X10*6/uL [facility] Hemoglobin 14.8 14.0 - 18.0 g/dl [facility] Hematocrit 40.6(L) 42.0 - 52.0 % [facility] Mean Corpuscular Volume 89.0 80.0 - 98.0 fL [facility] Mean Corpuscular Hemoglobin 32.5 27.0 - 33.0 pg [facility] Mean Corpuscular HGB Conc 36.5(H) 31.0 - 36.0 g/dl [facility] Red Cell Distribution Width 12.3 11.0 - 16.0 % [facility] Platelet Count 220 160 - 400 X10*3/uL [facility] Mean Platelet Volume 9.5 9.4 - 12.4 fL [facility] Neutrophils Percent Auto 91.2(H) 45 - 73 % [facility] Imm Gran Pct Auto 0.6(H) 0.0 - 0.4 % [facility] Lymphocytes Percent Auto 4.4(L) 20 - 40 % [facility] Monocytes Percent Auto 3.3 2 - 11 % [facility] Eosinophils Percent Auto 0.2 0 - 4 % [facility] Basophils Percent Auto 0.3 0 - 2 % [facility] NRBC Pct Auto 0.0 0.0 - 0.2 /100WBC [facility] Neutrophils Absolute Auto 11.3(H) 2.0 - 8.3 x10*3/uL [facility] Imm Gran Abs Auto 0.07(H) 0.00 - 0.03 X10*3/uL [facility] Lymphocytes Absolute Auto 0.5(L) 1.2 - 4.9 X10*3/uL [facility] Monocytes Absolute Auto 0.4 0.1 - 1.2 X10*3/uL [facility] Eosinophils Absolute Auto 0.0 0.0 - 0.4 X10*3/uL [facility] Basophils Absolute Auto 0.0 0.0 - 0.2 X10*3/uL [facility] NRBC Abs Auto 0.000 0.0 - 0.012 X10*3/uL [facility] 04/25/2025 4:17 AM EDT 04/25/2025 4:20 AM EDT Generic External Data Provider LAB BLOOD ORDERAB LES Edited Result - Final [facility] [address] [place] [address] [phone] * Lipase (04/25/2025 4:17 AM EDT) Lipase 11 8 - 78 U/L [facility] 04/25/2025 4:17 AM EDT 04/25/2025 4:20 AM EDT Generic External Data Provider LAB BLOOD ORDERAB LES Final Result Performing Organization Address City/[facility]/ZIP Co de Phone Number [facility] [address] [place] [address] [phone] * (ABNORMAL) Comprehensive Metabolic Panel (04/25/2025 4:17 AM EDT) Sodium 138 135 - 145 mmol/L [facility] Potassium 3.9 3.3 - 5.1 mmol/L [facility] Chloride 103 96 - 108 mmol/L [facility] Carbon Dioxide 24 22 - 29 mmol/L [facility] Anion Gap 15 12 - 20 [facility] Urea Nitrogen (BUN) 19(H) 9 - 16 mg/dL [facility] Creatinine, Serum 0.71 0.5 - 1.4 mg/dL [facility] Creatinine Clr Calc Pharmacy 101.6 [facility] Comment:eGFR (calculated fro m the MDRD study equation) and eCrCl(calculated from the Cockcroft-Gault equation) are based ondifferent parameters and may not yield comparable results.If eCrCl result is absurd, please check patient'sheight/weight. Estimated Glomerular Filt Rate >60 [facility] Comment:Chronic Kidney Disea se: Estimated GFR < 60 mL/min/1.84e3Zosdfu Kidney Disease: Estimated GFR < 15 mL/min/1.73m2 Glucose 156(H) 60 - 115 mg/dL [facility] Calcium 9.1 8.4 - 10.2 mg/dL [facility] Bilirubin, Total 1.0 0.0 - 1.0 mg/dL [facility] Aspartate Amino Transferase 32 5 - 37 U/L [facility] Alanine Aminotransferase 22 0 - 40 U/L [facility] Total Protein 7.1 6.5 - 8.0 g/dL [facility] Albumin Level 4.6 3.5 - 5.0 g/dL [facility] Alkaline Phosphatase 77 39 - 117 U/L [facility] 04/25/2025 4:17 AM EDT 04/25/2025 4:20 AM EDT us Generic External Data Provider LAB BLOOD ORDERAB LES Final Result [facility] [address] [place] [address] [phone] * (ABNORMAL) Testosterone, Total, males (Adult), IA (04/14/2025 9:52 AM EDT) Testosterone, Total 199(A) 250 - 1100 ng/dL [facility] Comment:Men with clinically significant hypogonadalsymptoms and testosterone values repeatedly inthe range of the 200-300 ng/dL or less, maybenefit from testosterone treatment afteradequate risk and benefits counseling.For additional information, please refer tohttp://education.ADCentricity.KonnectAgain/faq/[email or web address](This link is being provided for informational/educational purposes only.)This test was developed and its analytical performancecharacteristics have been determined by [employer] [place], [place]. It hasnot been cleared or approved by the U.S. Food and DrugAdministration. This assay has been validated pursuantto the CLIA regulations and is used for clinicalpurposes.THIS TEST WAS PERFORMED AT:[employer]/[facility] [place] [address]IXQLPADPATRICIA NEWMAN MD,PHD Blood Venous blood specimen / Unknown 04/14/2025 9:52 AM EDT 04/14/2025 10:54 AM EDT us Génesis Bruno MD LAB BLOOD ORDERABLES Final Result [facility] [address] [place] [phone] * (ABNORMAL) Lipid Panel, Standard (04/14/2025 9:52 AM EDT) Triglycerides 81 <150 mg/dL [facility] Comment:Desirable Triglyceri de: less than 150 mg/dLBorderline High Triglyceride 150-199 mg/dLHigh Triglyceride: 200-499 mg/dLVery High Triglyceride: greater than or equal to 5OO mg/dL Cholesterol 187 <200 mg/dL [facility] Comment:Desirable Cholestero l: less than 200 mg/dLBorderline High Cholesterol: 200-239 mg/dLHigh Cholesterol: greater than 239 mg/dL LDL Cholesterol Calculated 124(H) <100 mg/dL [facility] Comment:Desirable LDL: less than 100 mg/dLNear Optimal/Above Optimal LDL: 110- 129 mg/dLBorderline High LDL: 130-159 mg/dLHigh LDL: 160-189 mg/dLVery High LDL: greater than or equal to 190 mg/dL HDL Cholesterol 47 >40 mg/dL [facility] Comment:Desirable HDL: great er than 40 mg/dL Note: This HDL assay may give artificially low results in patients with liver disease. Blood Venous blood specimen / Unknown 04/14/2025 9:52 AM EDT 04/14/2025 10:54 AM EDT us Génesis Bruno MD LAB BLOOD ORDERABLES Final Result Performing Organization Address City/[facility]/ZIP Co de Phone Number [facility] [address] [place] [phone] * Testosterone, Free (Dialysis) And Total, MS (03/12/2025 8:48 AM EDT) Testosterone, Total 266 250 - 1100 ng/dL [facility] Comment:Men with clinically significant hypogonadalsymptoms and testosterone values repeatedly inthe range of the 200-300 ng/dL or less, maybenefit from testosterone treatment afteradequate risk and benefits counseling.For additional information, please refer tohttp://education.Blue Perch/faq/MiwbyKzzsjlqqczsjBZRMWFXFL224(This link is being provided for informational/educational purposes only.)This test was developed and its analytical performancecharacteristics have been determined by [employer], [place]. It hasnot been cleared or approved by the U.S. Food and DrugAdministration. This assay has been validated pursuantto the CLIA regulations and is used for clinicalpurposes. Testosterone, Free 50.8 30.0 - 135.0 pg/mL [facility] Comment:This test was develo ped and its analytical performancecharacteristics have been determined by [employer] [place], [place]. It hasnot been cleared or approved by the U.S. Food and DrugAdministration. This assay has been validated pursuantto the CLIA regulations and is used for clinicalpurposes.THIS TEST WAS PERFORMED AT:[employer] [id number] [place] [address]OEULTBBPATRICIA NEWMAN MD,PHD 03/12/2025 8:48 AM EDT 03/12/2025 8:48 AM EDT us Generic External Data Provider LAB BLOOD ORDERAB LES Final Result [facility] [address] [place] [phone] * T4, Free (03/12/2025 8:48 AM EDT) Free T4 (Free Thyroxine) 1.77 0.71 - 1.85 ng/dL [facility] 03/12/2025 8:48 AM EDT 03/12/2025 8:48 AM EDT us Generic External Data Provider LAB BLOOD ORDERAB LES Final Result Performing Organization Address [facility] Co de Phone Number [facility] [address] [place] [address] [phone] * (ABNORMAL) PSA,Total (03/12/2025 8:48 AM EDT) Prostate Specific Antigen 4.09(H) <0.05 - 4.0 ng/mL [facility] Comment:PSA methodology: Abb halima Alinity i ChemiluminescentMicroparticle Immunoassay (CMIA) 03/12/2025 8:48 AM EDT 03/12/2025 8:48 AM EDT us Generic External Data Provider LAB BLOOD ORDERAB LES Final Result Performing Organization Address [facility] Co de Phone Number [facility] [address] [place] [phone] * LH (03/12/2025 8:48 AM EDT) Lutenizing Hormone 2.1 1.6 - 15.2 mIU/mL [facility] Comment:THIS TEST WAS PERFOR MED AT:[employer] [place] [phone] HORVATH MD 03/12/2025 8:48 AM EDT 03/12/2025 8:48 AM EDT us Generic External Data Provider LAB BLOOD ORDERAB LES Final Result Performing Organization Address [facility]/ZIP Co de Phone Number [facility] [address] [place] [phone] * FSH (03/12/2025 8:48 AM EDT) Follicle Stimulating Hormone 4.9 1.4 - 12.8 mIU/mL [facility] Comment:THIS TEST WAS PERFOR MED AT:[employer] [place] [phone] HORVATH MD 03/12/2025 8:48 AM EDT 03/12/2025 8:48 AM EDT us Generic External Data Provider LAB BLOOD ORDERAB LES Final Result Performing Organization Address [facility] de Phone Number [facility] [address] [place] [phone] * Hemoglobin A1c (08/16/2024 1:44 PM EST) Hemoglobin A1c 5.8 <6.0 % [facility] Comment:Hemoglobin A1C Refer ence Range Adults: 4.8 - 6.0 % Non diabetic: < 6.0 % Goal: < 7.0 %Additional Action Suggested: > 8.0 %Note: Hemoglobin A1c results are invalid for patients with abnormal amounts of HbF. Blood transfusions may impact the HbA1c concentration in the patient sample. Estimated Average Glucose 120 mg/dL [facility] Comment:eAG = Estimated ave rage glucose which is %A1C expressed asaverage glucose, using the formula of the C8Y-OdlivmgJpvlcad Glucose study (ADAG), Diabetes Care, Vol.31,#8,2007 Blood Venous blood specimen / Unknown 08/16/2024 1:44 PM EST 08/16/2024 4:14 PM EST Luanne Romero MD LAB BLOOD ORDERABLES Final Result Performing Organization Address City/[facility]/ZIP Co de Phone Number [facility] [address] [place] [phone] * Colonoscopy (05/14/2023) Colonoscopy Normal Normal us Historical Provider HEALTH MAINTENANCE Final Result from Last 3 Months or Most Recently Relevant to Health Maintenance Insurance [facility] OPTIONS (HMO D-SNP) SANGEETHA ODONNELL [id number] Care Teams Customer Service Advisor Relationship Specialty Start Date End Date Alliance, MD Génesis [address] [place] [phone] PCP - General Family Medicine 09/15/18 Lela Anderson [address]rd [place] [address] Gastroenterology 08/19/24 Shruti Burton MD [address] [place] [address] [place] [address] Neurology 09/09/24 Rafael Plascencia MD [address] [place] [address] Cardiology 09/09/24 Cara Keen [address] [place] [address] Gastroenterology 09/17/24 Kulwinder Salmon MD [address] [place] [address] Ophthalmology 03/02/25 Effie Castañeda MD [address] [place] [address] Urology 03/17/25
--- OUTSIDE RECORDS SUMMARY | 2025-05-30 21:06 | XMS_ITS | Encounter Summary ---
Author Organization [facility] Address [address] [facility] 7t [place] [address] Care Team Providers Care Toggle Press Folder And Feeder Name Role Phone Génesis Bruno MD Primary Care Provider [phone] Lela Anderson Unavailable Shruti Burton MD Unavailable [phone] Rafael Plascencia MD Unavailable [phone] Cara Keen Unavailable Kulwinder Salmon MD Unavailable [phone] Effie Castañeda MD Unavailable Reason for Visit * Reason Comments Med Refill Encounter Details Date Type Department Care Team (Late Contact Info) Description 10/10/2022 Refill [facility] [address] [place] [phone] Génesis Bruno MD [address] [place] [address] [phone] Benign prostatic hyperplasia, unspecified whether lower urinary tract symptoms present Social History Tobacco Use Types Packs/Day Years Used Date Smoking Tobacco: Never Assessed Sex and Gender Information Value Date Recorded Sex Assigned at Male 07/15/2022 10:19 AM EDT Legal Sex Male 10:19 AM EDT Gender Identity Male 07/15/2022 10:19 AM EDT Sexual Orientation Lesbian or Hernandez 07/15/2022 10 :19 AM EDT documented as of this encounter Plan of Treatment Upcoming Encounters Date Type Department Care Team (Late Contact Info) Description 07/27/2025 2:00 PM EST Office Visit [facility] [address] [place] [address] [place] [address] Génesis Bruno MD [address] [place] [address] documented as of this encounter Visit Diagnoses Diagnosis Benign prostatic hyperplasia, unspecified whether lower urinary tract symptoms present documented in this encounter Care Teams Toggle Press Folder And Feeder Relationship Specialty Start Date End Date Génesis Bruno MD [address] [place] [address] PCP - General Family Medicine 09/15/18 Lela Anderson [address] [facility] 3rd [place] [address] Gastroenterology 08/19/24 Shruti Burton MD [address] [place] [address] Neurology 09/09/24 Rafael Plascencia MD [address] [place] [address] Cardiology 09/09/24 Cara Keen 11 [facility] 3rd [place] [address] Gastroenterology 09/17/24 Kulwinder Salmon MD 2 [facility] [address] [place] [address] Ophthalmology 03/02/25 Effie Castañeda MD [address] [place] [address] Urology 03/17/25 documented as of this encounter
== END 2025-05-30 16:36 | disposition home or self-care (01) ==
LOC: HO.ENCR 15:45
PROVIDERS: PCP Family Medicine; Visit Provider Internal Medicine Endocrinology, Diabetes & Metabolism
DX: E29.1 Testicular hypofunction (principal)
CPT/HCPCS: 99204

== ENCOUNTER → 2025-05-30 15:45 | Outpatient (BNVA) | payer OTHER, SELFPAY | PROVIDERS: PCP Family Medicine; Visit Provider Internal Medicine Endocrinology, Diabetes & Metabolism | DX: E29.1 Testicular hypofunction (principal) | CPT/HCPCS: 99202 ==

== ENCOUNTER 2025-06-01 09:50 | Outpatient (REF) | payer OTHER, SELFPAY ==
--- OUTSIDE RECORDS SUMMARY | 2025-06-01 11:40 | XMS_ITS | Encounter Summary ---
Author Organization [facility] Address [address] [facility] 7t [place] [address] Care Team Providers Care Cashier Manager Name Role Phone Génesis Bruno MD Primary Care Provider [phone] Lela Anderson Unavailable Shruti Burton MD Unavailable Rafael Plascencia MD Unavailable [phone] Cara Keen Unavailable Kulwinder Salmon MD Unavailable [phone] Effie Castañeda MD Unavailable Reason for Visit * Reason Comments Med Refill Encounter Details Date Type Department Care Team (Late Contact Info) Description 10/10/2022 Refill [facility] [address] [place] [address] Génesis Bruno MD [address] [place] [address] [phone] Benign prostatic hyperplasia, unspecified whether lower urinary [...] 2:00 PM EST Office Visit [facility] [address] [place] [address] [place] [address] Génesis Bruno MD [address] [place] [address] documented as of this encounter Visit Diagnoses Diagnosis Benign prostatic hyperplasia, unspecified whether lower urinary tract symptoms present documented in this encounter Care Teams Cashier Manager Relationship Specialty Start Date End Date Génesis Bruno MD [address] [place] [address] PCP - General Family Medicine 09/15/18 Lela Anderson 11 [facility] 3rd [place] [address] Gastroenterology 08/19/24 Shruti Burton MD [address] [place] [address] Neurology 09/09/24 Rafael Plascencia MD [address] [place] [address] Cardiology 09/09/24 Cara Keen 11 [facility] 3rd [place] [address] Gastroenterology 09/17/24 Kulwinder Salmon MD 2 [facility] [address] [place] [address] Ophthalmology 03/02/25 Effie Castañeda MD [address] [place] [address] Urology 03/17/25 documented as of this encounter
--- OUTSIDE RECORDS SUMMARY | 2025-06-01 11:40 | XMS_ITS | Encounter Summary ---
Author Organization [employer] Address [address] [facility] 7t [place] [address] Care Team Providers Care Glass Toughening Operator Name Role Phone Mondamin, Génesis REDD Primary Care Provider + [phone] Lela Anderson Unavailable Shruti Burton MD Unavailable Rafael Plascencia MD Unavailable [phone] Cara Keen Unavailable Kulwinder Salmon MD Unavailable [phone] Effie Castañeda MD Unavailable Encounter Details Date Type Department Care Team (Late st Contact Info) Description 05/04/2025 Results Follow-Up [facility] [address] [place] [address] Luanne Perez MD [address] [place] [address] Iron And Total Iron Binding Capacity, Ferritin, [...] 07/27/2025 2:00 PM EST Office Visit [facility] [address] [place] [address] Génesis Bruno MD [address] [place] [address] documented as of this encounter Visit Diagnoses Not on filedocumented in this encounter Additional Health Concerns Assessment Noted Time PHQ-9 Depression Total Score: 6 08/19/20 25 2:03 PM EDT documented as of this encounter Care Teams Glass Toughening Operator Relationship Specialty Start Date End Date Génesis Bruno MD [address] [place] [address] PCP - General Family Medicine 09/15/18 Lela Anderson [address] [place] [address] Gastroenterology 08/19/24 Shruti Burton MD [address] [place] [address] Neurology 09/09/24 Rafael Plascencia MD [address] [place] [address] Cardiology 09/09/24 Cara Keen [address] 3rd [place] [address] Gastroenterology 09/17/24 Kulwinder Salmon MD 2 [facility] [address] [place] [address] Ophthalmology 03/02/25 Effie Castañeda MD [address] [place] [address] Urology 03/17/25 documented as of this encounter
--- OUTSIDE RECORDS SUMMARY | 2025-06-01 11:40 | XMS_ITS | Encounter Summary ---
Author Organization [employer] [facility] Address [address] [place] [address] Care Team Providers Care Cloth Neutralizer Name Role Phone Onemo, Génesis REDD Primary Care Provider Lela Anderson Unavailable Shruti Burton MD Unavailable [phone] Rafael Plascencia MD Unavailable Cara Keen Unavailable Kulwinder Salmon MD Unavailable [phone] Effie Castañeda MD Unavailable Reason for Visit * Reason Onset Date Comments antibiotic pre treatment 06/06/2023 Encounter Details Date Type Department Care Team (Late st Contact Info) Description 06/06/2023 Telephone [facility] ADULT DENTAL [address] [place] [address] Sandra Driscoll DDS [address] [place], [place] [id number] antibiotic pre treatment Social History Tobacco Use [...] through My Chart on the medical side. 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 He has an appt on 06/26/2023. He stating that his right of way manager recommends he take antibiotic priorto dental treatment. Can script be sent DR documented in this encounter Plan of Treatment Upcoming Encounters Date Type Department Care Team (Late st Contact Info) Description 07/27/2025 2:00 PM EST Office Visit [facility] MEDICINE [address] [place] [address] Génesis Bruno MD [address] [place] [phone] documented as of this encounter Visit Diagnoses Not on filedocumented in this encounter Care Teams Cloth Neutralizer Relationship Specialty Start Date End Date Génesis Bruno MD [address] [place] [id number] PCP - General Family Medicine 09/15/18 Lela Anderson [address] [facility] [address] [place] [address] Gastroenterology 08/19/24 Shruti Burton MD [address] [place] [address] [facility] [place] [address] Neurology 09/09/24 Rafael Plascencia MD [address] [place] [address] Cardiology 09/09/24 Cara Keen 11 [facility] [address] [place] [address] Gastroenterology 09/17/24 Kulwinder Salmon MD [address] [facility] [address] [place] [address] Ophthalmology 03/02/25 Effie Castañeda MD [address] [place] [address] [address] [place] [address] Urology 03/17/25 documented as of this encounter
--- OUTSIDE RECORDS SUMMARY | 2025-06-01 11:40 | XMS_ITS | Encounter Summary ---
Author Organization [employer] [facility] Address [address] [place] [address] [address] [place] [address] Care Team Providers Care Loading Unit Tool Setter Name Role Phone Génesis Bruno MD Primary Care Provider Lela Anderson Unavailable Shruti Burton MD Unavailable Rafael Plascencai MD Unavailable [phone] Cara Keen Unavailable Kulwinder Salmon MD Unavailable [phone] Effie Castañeda MD Unavailable Reason for Referral * Consultation (Routine) - Authorized Specialty Diagnoses / Procedures Referred By Conttena t Referred To Contact Sleep Medicine Diagnoses ALEC (obstructive sleep apnea) Génesis Bruno MD [address] [place] [address] Phone: tel: fax: Sleep Medicine Service [address], [address] [place] [address] Phone: tel: fax: Referral ID Status Reason Start Date Expiration Date Visits Requested Visits Authorized [id number] Authorized Specialty Services Required 06/01/2025 06/01/2026 1 1 Encounter Details Date Type Department Care Team (Late st Contact Info) Description 06/01/[address] [facility] [address] [place] [address] Génesis Bruno MD [address] [place] [address] ALEC (obstructive sleep apnea) (Primary Dx) Social History Tobacco Use Types Packs/Day Years [...] Upcoming Encounters Date Type Department Care Team ([facility] st Contact Info) Description 07/27/2025 2:00 PM EST Office Visit [facility] [address] [place] [address] Génesis Bruno MD [address] [place] [address] Scheduled Referrals Name Type Priority Associated Diagnoses Orde r Schedule Referral to Sleep Medicine Outpatient Referral Routine ALEC (obstructive sleep apnea) Expected: 06/01/2025 (Approximate), Expires: 06/01/2026 documented as of this encounter Visit Diagnoses Diagnosis ALEC (obstructive sleep apnea)- Primary Obstructive sleep apnea (adult) (pediatric) documented in this encounter Additional Health Concerns Assessment Noted Time PHQ-9 Depression Total Score: 6 05/03/20 25 2:03 PM EDT documented as of this encounter Care Teams Loading Unit Tool Setter Relationship Specialty Start Date End Date Génesis Bruno MD [address] [place] [address] PCP - General Family Medicine 09/15/18 Lela Anderson 11 [facility] 3rd [place] [address] Gastroenterology 08/19/24 Shruti Burton MD [address] [place] [address] Neurology 09/09/24 Rafael Plascencia MD [address] [place] [address] Cardiology 09/09/24 Cara Keen 11 [facility] 3rd [place] [address] Gastroenterology 09/17/24 Kulwinder Salmon MD 2 [facility] [address] [place] [address] Ophthalmology 03/02/25 Effie Castañeda MD [address] [place] [address] Urology 03/17/25 documented as of this encounter
--- OUTSIDE RECORDS SUMMARY | 2025-06-01 11:40 | XMS_ITS | Clinical Summary ---
Author Organization [employer] Address [address] [place] [address] Care Team Providers Care Property Claims Adjuster Name Role Phone KianaGénesis omalley MD Primary Care Provider [phone] Lela Anderson Unavailable Shruti Burton MD Unavailable Rafael Plascencia MD Unavailable Cara Keen Unavailable Kulwinder Salmon MD Unavailable [phone] Effie Castañeda MD Unavailable Allergies No known active allergies Medications triamcinolone (Kenalog) 0.1 % creamIndications :Dry skin dermatitis Apply topically if needed in the morning and at bedtime (pain and swelling). 30 g 2 4 Active Alpha Lipoic Xj-Obfrrv-Zatmoe n (Biotin-Keratin- Alpha Lipoic Ac) 50-5-10 MG capsuleIndicatio ns:Dietary deficiency Active Ferrous Sulfate Dried (High Potency Iron) 65 MG tabletIndication s:Dietary deficiency Active Dpaf-Bvsyh-BEZ-B oswellia-Vit D (GLUCOSAMINE CHONDROITIN + D3 PO)Indications:D [...] PCP if symptoms persisit -pt to see [facility] in 05/2025 For low testosterone Boil 05/03/2025 [...] following up with anyone. History of BPH, [employer] has been checked on annual basis. Referral [...] following up with anyone. History of BPH, [employer] has been checked on annual basis. Referral [...] following up with anyone. History of BPH, [employer]OR has been checked on annual basis. Referral [...] care facilitated by [facility] in [place] and Dr. Salmon -dental home is [facility] -health care proxy given 03/24/24 Assessment & Plan (04/14/2025 11:34 AM EDT): -next physical exam due after 04/14/25 -eye care facilitated by [facility] in [place] and Dr. Salmon -dental home is [facility] -health care proxy given 03/24/24 Assessment & Plan (03/24/2024 2:43 PM EDT): -next physical exam due after 03/24/25 -eye care facilitated by [facility] in [place] -dental home is [facility] -health care proxy given 03/24/24 Other [...] valve 04/15/2019 Overview (02/18/2024): -Patient followed at [facility] with Dr. Lincoln Plascencia DO. Seen 02/17/24 recommend follow up 1 year Assessment & Plan (04/14/2025 11:34 AM EDT): -Patient followed at [facility] with Dr. Lincoln Plascencia DO. Seen 02/17/24 recommend follow up 1 year Assessment & Plan (03/24/2024 2:36 PM EDT): -Patient followed at [facility] with Dr. Lincoln Plascencia DO. Seen 02/17/24 recommend follow up 1 year Ventricular septal defect 04/15/2019 Overview (09/22/2024): Seen by cardiology 03/2021, no concerns. -Patient followed at [facility] with Dr. Lincoln Plascencia DO. Seen 02/17/24 recommend follow up 1 year Assessment & Plan (04/14/2025 11:34 AM EDT): Seen by cardiology 03/2021, no concerns. -Patient followed at [facility] with Dr. Lincoln Plascencia DO. Seen 02/17/24 recommend follow up 1 year Assessment & Plan (09/22/2024 3:22 PM EST): Seen by cardiology 03/2021, no concerns. -Patient followed at [facility] with Dr. Lincoln Plascencia DO. Seen 02/17/24 recommend follow up 1 year Essential hypertension 01/14/2019 Overview (03/16/2025): -Doing well on current medication, on goal. -referred to [facility] 09/2021 -Continue amlodipine 5mg daily by cardiology -Patient followed at [facility]ovascular [facility] with Dr. Lincoln Plascencia DO. Seen 03/10/25. [...] current medication, at goal today. -referred to [facility] 09/2021 -Continue amlodipine 5mg daily by cardiology -Patient followed at [facility] with Dr. Lincoln Plascencia DO. Seen 03/10/25. [...] on current medication, on goal. -referred to [facility] 09/2021 -Continue amlodipine 5mg daily by cardiology -Patient followed at [facility] associates with Dr. Lincoln Plascencia DO. [...] 5mg daily by cardiology -Patient followed at [facility] with Dr. Lincoln Plascencia DO. [...] Encounters Date Type Department Care Team Description 06/01/2025 Orders Only [facility] [place] [address] Génesis Bruno MD ALEC (obstructive sleep apnea) (Primary Dx) 05/04/2025 Results Follow-Up [facility] [place] [address] Luanne Perez MD Iron And Total Iron Binding Capacity, Ferritin, C-reactive Protein, Additional followed-up results: 10 05/03/2025 1:30 PM EDT Office Visit [facility] [place] [address] Luanne Perez MD Other fatigue (Primary Dx); Boil 05/03/2025 Travel 04/30/2025 Travel 04/29/2025 Telephone [facility] [place] [address] Génesis Bruno MD 04/26/2025 Orders Only [facility] [place] [address] Génesis Bruno MD Hypogonadism in male (Primary Dx) 04/25/2025 Orders Only GENERIC EXTERNAL DATA DEPARTMENT Provider, Generic External Data Renal cyst (Primary Dx) 04/18/2025 Telephone [facility] [place] [address] Génesis Bruno MD Faxed Result to Urologist 04/14/2025 9:15 AM EDT Office Visit [facility] [place] [address] Génesis Bruno MD Ventricular septal defect (Primary Dx); Essential hypertension; Dyslipidemia; Bicuspid aortic valve; Elevated LFTs; Benign prostatic hyperplasia without lower urinary tract symptoms; Elevated PSA; Hypogonadism in male; Dietary deficiency; Cardiac risk counseling; Positive depression screening; Right ear impacted cerumen; Other specified health status; Impacted cerumen of right ear 04/14/2025 Travel 04/13/[address] [address] Génesis Bruno MD CHART PREP 04/12/[address] [phone] Génesis Bruno MD 04/07/2025 Patient Outreach [address] [address] Génesis Bruno MD Pre-visit Planning (Pre-visit planning [...] your housing situation today? I have vance chung 04/14/[address] you li [...] or Hernandez 07/15/2022 10 :19 AM EDT Last Filed [...] Description 07/27/2025 2:00 PM EST Office Visit [facility] [address], [place] [phone] Génesis Bruno MD [address] [place], [place] [phone] Health Maintenance Due Date Last Done Comments [...] 04/14/2026 04/14/2025 Depression Screening 05/03/2026 05/03/2025, 05/03/20 Tobacco Screening 05/03/2026 05/03/2025 Dental X-Ray: Full [...] 05/17, 10/21/2013 Diabetes: Hemoglobin A1C Discontinued 08/16/2024, 1002/2021 Hepatitis C Screening Completed 05/03/2025 , 08/16/2024, [...] of septal infarct so no new findings Luanne Pearl MD ECG ORDERABLES F inal Result * Syphilis Screen (05/03/2025 2:44 PM EDT) Syphilis Screen Nonreactive Nonreactive [facility] Blood 05/03/2025 2:44 PM EDT 05/03/2025 4:17 PM EDT Luanne Pearl MD LAB BLOOD ORDERAB LES Final Result [facility] [address] [place] [phone] * Vitamin D, 25-Hydroxy, Total, Immunoassay (05/03/2025 2:44 PM EDT) Vitamin D 25-OH Total 63.3 >30 ng/mL [facility] Comment: Health Based Reference Values*< 20 ng/mL [id number] ng/mL Insufficient> 30 ng/mL Sufficient*Katie BABIN. N [...] ORDERAB LES Final Result Performing Organization Address City/[facility]/ZIP Co de Phone Number [facility] [address] [place] [phone] * Vitamin B12 (Cobalamin) and Folate Panel, Serum (05/03/2025 2:44 PM EDT) Vitamin B12 741 200 - 900 pg/mL [facility] Comment:NORMAL 200-900 PG/M L INDETERMINATE 160-199 PG/ML DEFICIENT < 160 PG/ML Folate 12.7 > or = 4.0 ng/mL [facility] Comment:Reference Values:> o r = 4.0 ng/mL< 4.0 ng/mL suggests folate deficiency Methotrexate, aminopterin and folinic acid(leucovorin) are chemotherapeutic agents whose molecularstructures are similar to folate; therefore, the Architectfolate assay cannot be used for patients using these drugs. Blood 05/03/2025 2:44 PM EDT 05/03/2025 4:17 PM EDT us Luanne Pearl MD LAB BLOOD ORDERAB LES Final Result Performing Organization Address [facility] Co de Phone Number [facility] [address] [place] [phone] * TSH with Reflex to Free T4 (05/03/2025 2:44 PM EDT) Only the most recent of2 resultswithin the time period is included. TSH reflex Free T4 1.07 0.32 - 4.0 uIU/mL [facility] Blood 05/03/2025 2:44 PM EDT 05/03/2025 4:17 PM EDT us Luanne Pearl MD LAB BLOOD ORDERAB LES Final Result Performing Organization Address City/[facility]/ZIP Co de Phone Number [facility] [address] [place] [phone] * Hepatitis C Antibody with Reflex to HCV, RNA, Quantitative, Real-Time PCR (05/03/2025 2:44 PM EDT) [facility] Hepatitis C Antibody Nonreactive Nonreactive [facility] Comment:Antibodies to HCV no t detected; does not exclude early acuteHCV infection. Blood Venous blood specimen / Unknown 05/03/2025 2:44 PM EDT 05/03/2025 4:17 PM EDT Luanne Pearl MD LAB BLOOD ORDERAB LES Final Result Performing Organization Address [facility]/ZIP Co de Phone Number [facility] [address] [place] [phone] * Iron And Total Iron Binding Capacity (05/03/2025 2:44 PM EDT) [facility] Iron 120 45 - 160 mcg/dL [facility] Total Iron Binding Capacity 266 228 - 428 mcg/dL [facility] Percent Iron Saturation 45 15 - 50 % [facility] Unsaturated Iron Binding 146 ug/dL [facility] Blood Venous blood specimen / Unknown 05/03/2025 2:44 PM EDT 05/03/2025 4:17 PM EDT Luanne Pearl MD LAB BLOOD ORDERAB LES Final Result Performing Organization Address City/[facility]/ZIP Co de Phone Number [facility] [address] [place] [phone] * Hepatitis B surface antigen, EIA (05/03/2025 2:44 PM EDT) [facility] Hepatitis B Surface Ag Negative Negative [facility] Blood Venous blood specimen / Unknown 05/03/2025 2:44 PM EDT 05/03/2025 4:17 PM EDT Luanne Pearl MD LAB BLOOD ORDERAB LES Final Result Performing Organization Address [facility]/ZIP Co de Phone Number [facility] [address] [place] [phone] * HIV-1/2 Antigen and Antibodies, Fourth Generation, with Reflexes (05/03/2025 2:44 PM EDT) HIV AB/AG Nonreactive Nonreactive [facility] Comment:HIV-1 p24 Ag and/or HIV-1/HIV-2 Ab not detected.A test result that is nonreactive does not exclude thepossibility of exposure to or infection with HIV-1 and/orHIV-2. Nonreactive results in this assay for individualswith prior exposure to HIV-1 and/or HIV-2 may be due toantigen and antibody levels that are below the limit ofdetection of this assay.The [employer] HIV Ag/Ab Combo assay result andsupplemental assay results should be interpreted inconjunction with the patient's clinical presentation,history and other laboratory results. If the results areinconsistent with clinical evidence, additional testing issuggested to confirm the result. Blood Venous blood specimen / Unknown 05/03/2025 2:44 PM EDT 05/03/2025 4:17 PM EDT us Luanne Pearl MD LAB BLOOD ORDERAB LES Final Result Performing Organization Address [facility]/ZIP Co de Phone Number [facility] [address] [place] [address] [phone] * Sed Rate by Modified Westergren (05/03/2025 2:44 PM EDT) Erythrocyte Sedimentation Rate 4 0 - 15 MM/HR [facility] Comment:Patients with polycy themia and many hemoglobin abnormalitiesmay have depressed sed rates whereas patients with anemiamay have elevated sed rates. Blood Venous blood specimen / Unknown 05/03/2025 2:44 PM EDT 05/03/2025 4:17 PM EDT us Luanne Pearl MD LAB BLOOD ORDERAB LES Final Result [facility] [address] [place] [address] [phone] * (ABNORMAL) CBC (05/03/2025 2:44 PM EDT) White Blood Count 6.8 4.8 - 10.8 X10*3/uL [facility] Red Blood Count 4.48(L) 4.60 - 5.80 X10*6/uL [facility] Hemoglobin 14.0 14.0 - 18.0 g/dl [facility] Hematocrit 41.4(L) 42.0 - 52.0 % [facility] Mean Corpuscular Volume 92.4 80.0 - 98.0 fL [facility] Mean Corpuscular Hemoglobin 31.3 27.0 - 33.0 pg [facility] Mean Corpuscular HGB Conc 33.8 31.0 - 36.0 g/dl [facility] Red Cell Distribution Width 12.5 11.0 - 16.0 % [facility] Platelet Count 217 160 - 400 X10*3/uL [facility] Mean Platelet Volume 10.5 9.4 - 12.4 fL [facility] NRBC Pct Auto 0.0 0.0 - 0.2 /100WBC [facility] NRBC Abs Auto 0.000 0.0 - 0.012 X10*3/uL [facility] Blood Venous blood specimen / Unknown 05/03/2025 2:44 PM EDT 05/03/2025 4:17 PM EDT us Luanne Pearl MD LAB BLOOD ORDERAB LES Final Result Performing Organization Address City/[facility]/ZIP Co de Phone Number [facility] [address] [place] [address] [phone] * C-reactive Protein (05/03/2025 2:44 PM EDT) C Reactive Protein <0.10 < or = 0.50 mg/dL [facility] Blood Venous blood specimen / Unknown 05/03/2025 2:44 PM EDT 05/03/2025 4:17 PM EDT Luanne Pearl MD LAB BLOOD ORDERAB LES Final Result [facility] [address] [place] [phone] * JOHNY Screen,IFA, with Reflex to Titer and Pattern (05/03/2025 2:44 PM EDT) Pathologist [facility] Anti Nuclear Antibody Screen NEGATIVE NEGATIVE [facility] Comment:JOHNY IFA is a first [...] clinicallysuspected inflammatory myopathies.AC-0: NegativeInternational Consensus on JOHNY Patterns(https://doi.org/10.1515/yxmi-4131-7312)For additional information, please refer tohttp://education.[employer]/faq/TRB642(This link is being provided for informational/educational purposes only.)THIS TEST WAS PERFORMED AT:[employer] [place] [phone] HORVATH MD JOHNY Titer TNP [facility] JOHNY Pattern TNP [facility] JOHNY TITER 2 (REF LAB) TNP [facility] JOHNY Pattern 2 [facility]NY TITER 3 [facility] JOHNY PATTERN 3 [facility] Blood Venous blood specimen / Unknown 05/03/2025 2:44 PM EDT 05/03/2025 4:17 PM EDT us Luanne Pearl MD LAB BLOOD ORDERAB LES Final Result Performing Organization Address [facility] Co de Phone Number [facility] [address] [place] [phone] * Ferritin (05/03/2025 2:44 PM EDT) Ferritin 143 20 - 250 ng/mL [facility] Blood Venous blood specimen / Unknown 05/03/2025 2:44 PM EDT 05/03/2025 4:17 PM EDT us Luanne Pearl MD LAB BLOOD ORDERAB LES Final Result Performing Organization Address [facility] Co de Phone Number [facility] [address] [place] [phone] * CT Abdomen Pelvis w/ Contrast (04/25/2025 9:39 AM EDT) Anatomical Region Laterality Modality Body, Pelvis, Abdomen Computed T omography 04/25/2025 9:39 AM EDT Narrative 04/25/2025 11:05 AM EDT [address] [address] [address] Scan Report Signed Patient: Sukhjinder Chambers MR#: [id number] : 1955 Acct:[id number] Age/Sex: 70 / M ADM Date: 04/25/25 Loc: .ED Attending Dr: Ordering Physician: Izabel Mackenzie Date of Service: 04/25/25 Procedure(s): CT abdomen pelvis w IV con Accession Number(s): [id number] cc: Génesis Bruno MD; Izabel Mackenzie Report Number: [id number]: Total DLP = 517.00 mGy-cm EXAMINATION: CT [...] 04/25/25 1101 DD/ 0939 TD/TT: 04/25/25 1039 Vp Informatics: Procedure Note Donotuseinterpreter, Image - 04/25/[address] [address] [address] Scan Report Signed Patient: Sukhjinder Chambers PMR#: [id number] : 4Acct:[id number] Age/Sex: 70 / MADM Date: 04/25/25 Loc: HO.ED Attending Dr: Ordering Physician: Izabel Mackenzie Date of Service: 04/25/25 Procedure(s): CT abdomen pelvis w IV con Accession Number(s): [id number] cc: Génesis Bruno MD; Izabel Mackenzie Report Number: [id number]: Total DLP = 517.00 mGy-cm EXAMINATION: CT [...] 04/25/25 1101 DD/ 0939 TD/TT: 04/25/25 1039 Vp Informatics: us [facility] External Provider IMG CT PROCEDURES Final Result * Urinalysis, Complete, with Reflex to Culture (04/25/2025 8:56 AM EDT) Color Urine Yellow [facility] Appearance Urine Clear [facility] PH 7.5 5.0 - 9.0 [facility] Glucose Urine UA Negative Negative mg/dL [facility] Urine Blood Negative Negative [facility] Specific [place] - Urine <=1.005 1.005 - 1.025 [facility] Urine Protein Negative Neg-Trace mg/dL [facility] Urine Ketones Negative Negative mg/dL [facility] Nitrite Urine Negative Negative [facility] Leukocyte Esterase Urine Negative Negative [facility] RBC Urine 0-2 0 - 2 /HPF [facility] Urine WBC 0-5 0 - 5 /HPF [facility] Urine Squamous Epithelial Cell 0-2 0 - 2 /HPF [facility] Urine Bacteria None Seen None Seen [facility] Hyaline Casts, Urine 0-2 0 - 2 /LPF [facility] 04/25/2025 8:56 AM EDT 04/25/2025 8:58 AM EDT Narrative [facility] - 04/25/2025 9:09 AM EDT [id number], Clean Catch Generic External Data Provider LAB URINE ORDERAB LES Final Result Performing Organization Address City/[facility]/ZIP Co de Phone Number [facility] [address] [place] [address] [phone] * Slide Review (04/25/2025 4:17 AM EDT) Slide Review VERIFIED [facility] 04/25/2025 4:17 AM EDT 04/25/2025 4:20 AM EDT Generic External Data Provider LAB BLOOD ORDERAB LES Final Result Performing Organization Address City/[facility]/ZIP Co de Phone Number [facility] [address] [place] [phone] * (ABNORMAL) CBC auto differential (04/25/2025 4:17 AM EDT) White Blood Count 12.3(H) 4.8 - 10.8 X10*3/uL [facility] Red Blood Count 4.56(L) 4.60 - 5.80 X10*6/uL [facility] Hemoglobin 14.8 14.0 - 18.0 g/dl [facility] Hematocrit 40.6(L) 42.0 - 52.0 % [facility] Mean Corpuscular Volume 89.0 80.0 - 98.0 fL [facility] Mean Corpuscular Hemoglobin 32.5 27.0 - 33.0 pg [facility] Mean Corpuscular HGB Conc 36.5(H) 31.0 - 36.0 g/dl [facility] Red Cell Distribution Width 12.3 11.0 - 16.0 % [facility] Platelet Count 220 160 - 400 X10*3/uL [facility] Mean Platelet Volume 9.5 9.4 - 12.4 fL [facility] Neutrophils Percent Auto 91.2(H) 45 - 73 % [facility] Imm Gran Pct Auto 0.6(H) 0.0 - 0.4 % [facility] Lymphocytes Percent Auto 4.4(L) 20 - 40 % [facility] Monocytes Percent Auto 3.3 2 - 11 % [facility] Eosinophils Percent Auto 0.2 0 - 4 % [facility] Basophils Percent Auto 0.3 0 - 2 % [facility] NRBC Pct Auto 0.0 0.0 - 0.2 /100WBC [facility] Neutrophils Absolute Auto 11.3(H) 2.0 - 8.3 x10*3/uL [facility] Imm Gran Abs Auto 0.07(H) 0.00 - 0.03 X10*3/uL [facility] Lymphocytes Absolute Auto 0.5(L) 1.2 - 4.9 X10*3/uL [facility] Monocytes Absolute Auto 0.4 0.1 - 1.2 X10*3/uL [facility] Eosinophils Absolute Auto 0.0 0.0 - 0.4 X10*3/uL [facility] Basophils Absolute Auto 0.0 0.0 - 0.2 X10*3/uL [facility] NRBC Abs Auto 0.000 0.0 - 0.012 X10*3/uL [facility] 04/25/2025 4:17 AM EDT 04/25/2025 4:20 AM EDT us Generic External Data Provider LAB BLOOD ORDERAB LES Edited Result - Final Performing Organization Address City/[facility]/ZIP Co de Phone Number [facility] [address] [place] [address] [phone] * Lipase (04/25/2025 4:17 AM EDT) Pathologist [facility] Lipase 11 8 - 78 U/L [facility] 04/25/2025 4:17 AM EDT 04/25/2025 4:20 AM EDT us Generic External Data Provider LAB BLOOD ORDERAB LES Final Result Performing Organization Address [facility]/ZIP Co de Phone Number [facility] [address] [place] [address] [phone] * (ABNORMAL) Comprehensive Metabolic Panel (04/25/2025 4:17 AM EDT) Sodium 138 135 - 145 mmol/L [facility] Potassium 3.9 3.3 - 5.1 mmol/L [facility] Chloride 103 96 - 108 mmol/L [facility] Carbon Dioxide 24 22 - 29 mmol/L [facility] Anion Gap 15 12 - 20 [facility] Urea Nitrogen (BUN) 19(H) 9 - 16 mg/dL [facility] Creatinine, Serum 0.71 0.5 - 1.4 mg/dL [facility] Creatinine Clr Calc Pharmacy 101.6 [facility] Comment:eGFR (calculated fro m the MDRD study equation) and eCrCl(calculated from the Cockcroft-Gault equation) are based ondifferent parameters and may not yield comparable results.If eCrCl result is absurd, please check patient'sheight/weight. Estimated Glomerular Filt Rate >60 [facility] Comment:Chronic Kidney Disea se: Estimated GFR < 60 mL/min/1.65s2Cllsng Kidney Disease: Estimated GFR < 15 mL/min/1.73m2 Glucose 156(H) 60 - 115 mg/dL [facility] Calcium 9.1 8.4 - 10.2 mg/dL [facility] Bilirubin, Total 1.0 0.0 - 1.0 mg/dL [facility] Aspartate Amino Transferase 32 5 - 37 U/L [facility] Alanine Aminotransferase 22 0 - 40 U/L [facility] Total Protein 7.1 6.5 - 8.0 g/dL [facility] Albumin Level 4.6 3.5 - 5.0 g/dL [facility] Alkaline Phosphatase 77 39 - 117 U/L [facility] 04/25/2025 4:17 AM EDT 04/25/2025 4:20 AM EDT us Generic External Data Provider LAB BLOOD ORDERAB LES Final Result [facility] [address] [place] [phone] * (ABNORMAL) Testosterone, Total, males (Adult), IA (04/14/2025 9:52 AM EDT) Testosterone, Total 199(A) 250 - 1100 ng/dL [facility] Comment:Men with clinically significant hypogonadalsymptoms and testosterone values repeatedly inthe range of the 200-300 ng/dL or less, maybenefit from testosterone treatment afteradequate risk and benefits counseling.For additional information, please refer tohttp://education.questdiagnostics.com/faq/JcupxBbacwhfccshsXVZPYEBAK917(This link is being provided for informational/educational purposes only.)This test was developed and its analytical performancecharacteristics have been determined by [employer] [place], [place]. It hasnot been cleared or approved by the U.S. Food and DrugAdministration. This assay has been validated pursuantto the CLIA regulations and is used for clinicalpurposes.THIS TEST WAS PERFORMED AT:[employer]/[facility] [place] [id number] NEWMAN MD,PHD Blood Venous blood specimen / Unknown 04/14/2025 9:52 AM EDT 04/14/2025 10:54 AM EDT us Génesis Bruno MD LAB BLOOD ORDERABLES Final Result [facility] [address] [place] [phone] * (ABNORMAL) Lipid Panel, Standard (04/14/2025 9:52 AM EDT) Triglycerides 81 <150 mg/dL [facility] Comment:Desirable Triglyceri de: less than 150 mg/dLBorderline High Triglyceride 150-199 mg/dLHigh Triglyceride: 200-499 mg/dLVery High Triglyceride: greater than or equal to 5OO mg/dL Cholesterol 187 <200 mg/dL [facility] Comment:Desirable Cholestero l: less than 200 mg/dLBorderline High Cholesterol: 200-239 mg/dLHigh Cholesterol: greater than 239 mg/dL LDL Cholesterol Calculated 124(H) <100 mg/dL [facility] Comment:Desirable LDL: less than 100 mg/dLNear Optimal/Above Optimal LDL: 110- 129 mg/dLBorderline High LDL: 130-159 mg/dLHigh LDL: 160-189 mg/dLVery High LDL: greater than or equal to 190 mg/dL HDL Cholesterol 47 >40 mg/dL [facility] Comment:Desirable HDL: great er than 40 mg/dL Note: This HDL assay may give artificially low results in patients with liver disease. Blood Venous blood specimen / Unknown 04/14/2025 9:52 AM EDT 04/14/2025 10:54 AM EDT us Génesis Bruno MD LAB BLOOD ORDERABLES Final Result [facility] [address] [place] [address] [phone] * Testosterone, Free (Dialysis) And Total, MS (03/12/2025 8:48 AM EDT) [facility] Testosterone, Total 266 250 - 1100 ng/dL [facility] Comment:Men with clinically significant hypogonadalsymptoms and testosterone values repeatedly inthe range of the 200-300 ng/dL or less, maybenefit from testosterone treatment afteradequate risk and benefits counseling.For additional information, please refer tohttp://education.Lybrate/faq/[email or web address](This link is being provided for informational/educational purposes only.)This test was developed and its analytical performancecharacteristics have been determined by [place]. It hasnot been cleared or approved by the U.S. Food and DrugAdministration. This assay has been validated pursuantto the CLIA regulations and is used for clinicalpurposes. Testosterone, Free 50.8 30.0 - 135.0 pg/mL [facility] Comment:This test was develo ped and its analytical performancecharacteristics have been determined by [place]. It hasnot been cleared or approved by the U.S. Food and DrugAdministration. This assay has been validated pursuantto the CLIA regulations and is used for clinicalpurposes.THIS TEST WAS PERFORMED AT:[employer] [id number] [place] [phone] NEWMAN MD,PHD 03/12/2025 8:48 AM EDT 03/12/2025 8:48 AM EDT Generic External Data Provider LAB BLOOD ORDERAB LES Final Result Performing Organization Address [facility] de Phone Number [facility] [address] [place] [phone] * T4, Free (03/12/2025 8:48 AM EDT) Free T4 (Free Thyroxine) 1.77 0.71 - 1.85 ng/dL [facility] 03/12/2025 8:48 AM EDT 03/12/2025 8:48 AM EDT Generic External Data Provider LAB BLOOD ORDERAB LES Final Result Performing Organization Address [facility] Phone Number [facility] [address] [place] [phone] * (ABNORMAL) PSA,Total (03/12/2025 8:48 AM EDT) Prostate Specific Antigen 4.09(H) <0.05 - 4.0 ng/mL [facility] Comment:PSA methodology: Abb halima Alitrayty i ChemiluminescentMicroparticle Immunoassay (CMIA) 03/12/2025 8:48 AM EDT 03/12/2025 8:48 AM EDT Generic External Data Provider LAB BLOOD ORDERAB LES Final Result Performing Organization Address [facility] de Phone Number [facility] [address] [place] [phone] * LH (03/12/2025 8:48 AM EDT) Lutenizing Hormone 2.1 1.6 - 15.2 mIU/mL [facility] Comment:THIS TEST WAS PERFOR MED AT:[employer] [place] [phone] HORVATH MD 03/12/2025 8:48 AM EDT 03/12/2025 8:48 AM EDT Generic External Data Provider LAB BLOOD ORDERAB LES Final Result Performing Organization Address [facility] Co de Phone Number [facility] [address] [place] [phone] * FSH (03/12/2025 8:48 AM EDT) Follicle Stimulating Hormone 4.9 1.4 - 12.8 mIU/mL [facility] Comment:THIS TEST WAS PERFOR MED AT:[employer] [place] [phone] HORVATH MD 03/12/2025 8:48 AM EDT 03/12/2025 8:48 AM EDT Generic External Data Provider LAB BLOOD ORDERAB LES Final Result Performing Organization Address [facility] Co de Phone Number [facility] [address] [place] [phone] * Hemoglobin A1c (08/16/2024 1:44 PM EST) Hemoglobin A1c 5.8 <6.0 % [facility] Comment:Hemoglobin A1C Refer ence Range Adults: 4.8 - 6.0 % Non diabetic: < 6.0 % Goal: < 7.0 %Additional Action Suggested: > 8.0 %Note: Hemoglobin A1c results are invalid for patients with abnormal amounts of HbF. Blood transfusions may impact the HbA1c concentration in the patient sample. Estimated Average Glucose 120 mg/dL [facility] Comment:eAG = Estimated ave rage glucose which is %A1C expressed asaverage glucose, using the formula of the U6F-ZpucahkKetjszp Glucose study (ADAG), Diabetes Care, Vol.31,#8,Apr. 2007 Blood Venous blood specimen / Unknown 08/16/2024 1:44 PM EST 08/16/2024 4:14 PM EST us Luanne Romero MD LAB BLOOD ORDERABLES Final Result [facility] [address] [place] [address] [phone] * Colonoscopy (05/14/2023) Colonoscopy Normal Normal Historical Provider HEALTH MAINTENANCE Final Result from Last 3 Months or Most Recently Relevant to Health Maintenance [facility] D-SNP) [id number] Care Teams Property Claims Adjuster Relationship Specialty Start Date End Date Génesis Bruno MD [address] [place] [address] PCP - General Family Medicine 09/15/18 Lela Anderson [address] 3rd [place] [address] Gastroenterology 08/19/24 Shruti Burton MD [address] [place] [address] Neurology 09/09/24 Rafael Plascencia MD [address] [place] [address] Cardiology 09/09/24 Cara Keen [address] 3rd [place] [address] Gastroenterology 09/17/24 Kulwinder Salmon MD [address] [place] [address] Ophthalmology 03/02/25 Effie Castañeda MD [address] [place] [address] Urology 03/17/25
--- OUTSIDE RECORDS SUMMARY | 2025-06-01 11:40 | XMS_ITS | Encounter Summary ---
Author Organization [facility] [facility] Address 75 [facility] 7t [place] [address] Care Team Providers Care Roofing Applicator Name Role Phone Génesis Bruno MD Primary Care Provider Lela Anderson Unavailable Shruti Burton MD Unavailable Rafael Plascencia MD Unavailable [phone] Cara Keen Unavailable Kulwinder Salmon MD Unavailable [phone] Effie Castañeda MD Unavailable Encounter Details Date Type Department Care Team (Late st Contact Info) Description 05/20/2023 Abstract [facility] ADULT D[facility] [address] [place], [place] [phone] Anthony Gonzalez DMD [address] [place], [place] [phone] Social History Tobacco Use Types Packs/Day Years [...] Description 07/27/2025 2:00 PM EST Office Visit [facility] MEDICINE [address] [place] [address] Génesis Bruno MD 230 [place] [address] documented as of this encounter Visit Diagnoses Not on filedocumented in this encounter Care Teams Roofing Applicator Relationship Specialty Start Date End Date Génesis Bruno MD 230 [place] [address] PCP - General Family Medicine 09/15/18 Lela Anderson [address] [address] Gastroenterology 08/19/24 Shruti Burton MD [address] [place] [address] Neurology 09/09/24 Rafael Plascencia MD 6 [place] [address] Cardiology 09/09/24 Cara Keen [address] [address] Gastroenterology 09/17/24 Kulwinder Salmon MD 2 [facility] [address] [place] [address] Ophthalmology 03/02/25 Effie Castañeda MD [address] [place] [address] Urology 03/17/25 documented as of this encounter
--- OUTSIDE RECORDS SUMMARY | 2025-06-01 11:40 | XMS_ITS | Encounter Summary ---
Author Organization [facility] Address 75 [facility] 7t [place] [address] Care Team Providers Care House Worker Name Role Phone [place], Génseis REDD Primary Care Provider Lela Anderson Unavailable Shruti Burton MD Unavailable [phone] Rafael Plascencia MD Unavailable Cara Keen Unavailable Kulwinder Salmon MD Unavailable [phone] Effie Castañeda MD Unavailable Reason for Visit * Reason Comments Med Refill Encounter Details Date Type Department Care Team (Late st Contact Info) Description 10/06/2023 Refill [facility] ADULT DENTAL [address] [place] [address] aSndra Driscoll DDS [address] [place] [address] Social History Tobacco Use Types Packs/Day Years [...] Description 07/27/2025 2:00 PM EST Office Visit [facility] MED[facility] [address] [place] [address] Génesis Bruno MD 230 [place] [address] documented as of this encounter Visit Diagnoses Not on filedocumented in this encounter Care Teams House Worker Relationship Specialty Start Date End Date Génesis Bruno MD [address] [place] [address] PCP - General Family Medicine 09/15/18 Lela Anderson 11 [facility] 3rd [place] [address] Gastroenterology 08/19/24 Shruti Burton MD [address] [place] [address] Neurology 09/09/24 Rafael Plascencia MD [address] [place] [address] Cardiology 09/09/24 Cara Keen 11 [facility] 3rd [place] [address] Gastroenterology 09/17/24 Kulwinder Salmon MD 2 [facility] [address] [place] [address] Ophthalmology 03/02/25 Effie Castañeda MD [address] [place] [address] Urology 03/17/25 documented as of this encounter
--- OUTSIDE RECORDS SUMMARY | 2025-06-01 11:40 | XMS_ITS | Encounter Summary ---
Author Organization [employer] [facility] Address 75 [facility] 7t [place] [address] Care Team Providers Care Safety Equipment Tester Name Role Phone Génesis Bruno MD Primary Care Provider Lela Anderson Unavailable Shruti Burton MD Unavailable Rafael Plascencia MD Unavailable Cara Keen Unavailable Kulwinder Salmon MD Unavailable [phone] Effie Castañeda MD Unavailable Encounter Details Date Type Department Care Team (Late st Contact Info) Description 08/26/2023 Abstract [facility] ADULT DENTAL [address] [place] [address] Ja Diaz DMD [address] [place] [address] Social History Tobacco Use Types Packs/Day Years [...] Description 07/27/2025 2:00 PM EST Office Visit [facility] MEDICINE [address] [place], [place] [phone] Génesis Bruno MD 230 [place] [address] documented as of this encounter Visit Diagnoses Not on filedocumented in this encounter Care Teams Safety Equipment Tester Relationship Specialty Start Date End Date Génesis Bruno MD [address] [place] [address] PCP - General Family Medicine 09/15/18 Lela Anderson 11 [facility] 3rd [place] [address] Gastroenterology 08/19/24 Shruti Burton MD [address] [place] [address] Neurology 09/09/24 Rafael Plascencia MD 6 [place] [address] Cardiology 09/09/24 Cara Keen 11 [facility] 3rd [place] [address] Gastroenterology 09/17/24 Kulwinder Salmon MD 2 [facility] [address] [place] [address] Ophthalmology 03/02/25 Effie Castañeda MD [address] [place] [address] Urology 03/17/25 documented as of this encounter
--- OUTSIDE RECORDS SUMMARY | 2025-06-01 11:40 | XMS_ITS | Encounter Summary ---
Author Organization [facility] Address 75 [facility] 7t [place] [address] Care Team Providers Care Calciner Feeder Name Role Phone Génesis Bruno MD Primary Care Provider [phone] Lela Anderson Unavailable Shruti Burton MD Unavailable [phone] Rafael Plascencia MD Unavailable [phone] Cara Keen Unavailable Kulwinedr Salmon MD Unavailable [phone] Effie Castañeda MD Unavailable Reason for Visit * Reason Comments Med Refill Encounter Details Date Type Department Care Team (Late st Contact Info) Description 06/11/2023 Refill [facility] MEDICINE 230 [place], [place] [phone] Génesis Bruno MD [address] [place], [place] [phone] Essential hypertension Social History Tobacco Use Types [...] Description 07/27/2025 2:00 PM EST Office Visit [facility] MEDICINE 230 [place] [address] Génesis Bruno MD [address] [place] [address] documented as of this encounter Visit Diagnoses Diagnosis Essential hypertension Unspecified essential hypertension documented in this encounter Care Teams Calciner Feeder Relationship Specialty Start Date End Date Génesis Bruno MD [address] [place] [address] PCP - General Family Medicine 09/15/18 Lela Anderson 11 [facility] 3rd [place] [address] Gastroenterology 08/19/24 Shruti Burton MD [address] [place] [address] [place] [address] Neurology 09/09/24 Rafael Plascencia MD [address] [place] [address] Cardiology 09/09/24 Cara Keen 11 [facility] 3rd [place] [address] Gastroenterology 09/17/24 Kulwinder Salmon MD 2 [facility] [address] [place] [address] Ophthalmology 03/02/25 Effie Castañeda MD [address] [place] [address] Urology 03/17/25 documented as of this encounter
--- OUTSIDE RECORDS SUMMARY | 2025-06-01 11:40 | XMS_ITS | Encounter Summary ---
Author Organization [employer] [facility] Address 75 [facility] 7t [place] [address] Care Team Providers Care Program Trainer Name Role Phone [place], Génesis REDD Primary Care Provider Lela Anderson Unavailable Shruti Burton MD Unavailable [phone] Rafael Plascencia MD Unavailable Cara Keen Unavailable Kulwinder Salmon MD Unavailable [phone] Effie Castañeda MD Unavailable Encounter Details Date Type Department Care Team (Late st Contact Info) Description 08/26/2023 Abstract [facility] ADULT DENTAL 230 [place] [address] Sandra Driscoll DDS 230 [place], [place] [phone] Social History Tobacco Use Types Packs/Day Years [...] Description 07/27/2025 2:00 PM EST Office Visit [facility] MEDICINE 230 [place] [address] Génesis Bruno MD 230 [place] [address] documented as of this encounter Visit Diagnoses Not on filedocumented in this encounter Care Teams Program Trainer Relationship Specialty Start Date End Date Génesis Bruno MD 230 [place] [address] PCP - General Family Medicine 09/15/18 Lela Anderson [address] [address] Gastroenterology 08/19/24 Shruti Burton MD [address] [place] [address] Neurology 09/09/24 Rafael Plascencia MD 6 [place] [address] Cardiology 09/09/24 Cara Keen [address] [address] Gastroenterology 09/17/24 Kulwinder Salmon MD 2 [facility] [address] [place] [address] Ophthalmology 03/02/25 Effie Castañeda MD [address] [place] [address] Urology 03/17/25 documented as of this encounter
--- OUTSIDE RECORDS SUMMARY | 2025-06-01 11:40 | XMS_ITS | Encounter Summary ---
Author Organization [employer] [facility] Address 75 [facility] 7t [place] [address] Care Team Providers Care Audio Production Engineer Name Role Phone [place], Génesis REDD Primary Care Provider [phone] Lela Anderson Unavailable Shruti Burton MD Unavailable Rafael Plascencia MD Unavailable [phone] Cara Keen Unavailable Kulwinder Salmon MD Unavailable [phone] Effie Castañeda MD Unavailable Encounter Details Date Type Department Care Team (Late st Contact Info) Description 08/17/2024 Orders Only [facility] MEDICINE 230 [place], [place] [phone] Luanne Guadalupe MD 230 [place], [place] [phone] Social History Tobacco Use Types Packs/Day Years [...] Description 07/27/2025 2:00 PM EST Office Visit [facility] MEDICINE [address] [place] [address] Génesis Bruno MD 230 [place] [address] documented as of this encounter Visit Diagnoses Not on filedocumented in this encounter Additional Health Concerns Assessment Noted Time PHQ-9 Depression Total Score: 0 03/24/20 24 2:18 PM EDT documented as of this encounter Care Teams Audio Production Engineer Relationship Specialty Start Date End Date Génesis Bruno MD [address] [place] [address] PCP - General Family Medicine 09/15/18 Lela Anderson [address] 3rd [place] [address] Gastroenterology 08/19/24 Shruti Burton MD [address] [facility] [address] [place] [address] Neurology 09/09/24 Rafael Plascencia MD 596 [place] [address] Cardiology 09/09/24 Cara Keen [address] 3rd [place] [address] Gastroenterology 09/17/24 Kulwinder Salmon MD [address] [place] [address] Ophthalmology 03/02/25 Effie Castañeda MD [address] [place] [address] Urology 03/17/25 documented as of this encounter
--- OUTSIDE RECORDS SUMMARY | 2025-06-01 11:40 | XMS_ITS | Encounter Summary ---
Author Organization [employer] Address [address] [facility] [address] 7t [place] [address] Care Team Providers Care Cable Maintainer Name Role Phone [place], Génesis REDD Primary Care Provider [phone] Lela Anderson Unavailable Shruti Burton MD Unavailable [phone] Rafael Plascencia MD Unavailable [phone] Cara Keen Unavailable Kulwinder Salmon MD Unavailable [phone] Effie Castañeda MD Unavailable Reason for Visit * Reason Comments Med Refill Encounter Details Date Type Department Care Team (Late st Contact Info) Description 09/12/2024 Refill [facility] 230 [place], [place] [phone] Luanne Guadalupe MD 230 [place], [place] [phone] Loss of appetite; Depressive disorder Social History [...] 2:00 PM EST Office Visit [facility] MEDICINE [address] [place] [address] Génesis Bruno MD [address] [place] [address] documented as of this encounter Visit Diagnoses Diagnosis Loss of appetite Anorexia Depressive disorder Depressive disorder, not elsewhere classified documented in this encounter Additional Health Concerns Assessment Noted Time PHQ-9 Depression Total Score: 0 03/24/20 24 2:18 PM EDT documented as of this encounter Care Teams Cable Maintainer Relationship Specialty Start Date End Date Génesis Bruno MD [address] [place] [address] PCP - General Family Medicine 09/15/18 Lela Anderson [address] 3rd [place] [address] Gastroenterology 08/19/24 Shruti Burton MD [address] [place] [address] [place] [address] Neurology 09/09/24 Rafael Plascencia MD 5[address] [place] [address] Cardiology 09/09/24 Cara Keen [address] 3rd [place] [address] Gastroenterology 09/17/24 Kulwinder Salmon MD [address] [place] [address] Ophthalmology 03/02/25 Effie Castañeda MD [address] [place] [address] Urology 03/17/25 documented as of this encounter
[2025-06-02 05:03] LABS: Follicle Stimulating Hormone 4.8 mIU/mL (1.4-12.8)
[2025-06-07 07:38] LABS: Testosterone, Free 59.8 pg/mL (30.0-135.0)
== END 2025-06-01 09:51 | disposition home or self-care (01) ==
LOC: HO.LAB 09:50
PROVIDERS: PCP Family Medicine; Visit Provider Internal Medicine Endocrinology, Diabetes & Metabolism
DX: E29.1 Testicular hypofunction (principal)
CPT/HCPCS: 36415; 82533; 83001; 83002; 84402; 84403

== ENCOUNTER 2025-06-13 14:06 | Outpatient (REF) | payer OTHER, SELFPAY ==
--- NOTE | ~2025-06-13 | US_ITS ---
EXAMINATION: US BLADDER HISTORY: R68.82 - Decreased libido COMPARISON: There are no prior studies available for comparison. FINDINGS: Sonographic examination of the urinary bladder was performed before and after voiding. Before voiding, the urinary bladder measured 9.0 x 6.5 x 7.9, for an estimated volume of 242 mL. After voiding, the urinary bladder measured 6.9 x 5.9 x 7.9, for an estimated volume of 168 mL. The bladder is trabeculated. There may be a small posterior diverticulum. Bilateral ureteral jets are identified. The prostate measures 4.6 x 1.6 x 3.9 cm, for an estimated volume of 39.8 mL. US/US bladder IMPRESSION: 1. Trabeculated bladder with a possible small posterior diverticulum. 2. Post void bladder residual of 168 mL. 3. Prostate volume of 39.8 mL. Electronically signed by: Beto Hughes MD 06/13/2025 02:53 PM EDT
--- OUTSIDE RECORDS SUMMARY | 2025-06-13 15:54 | XMS_ITS | Encounter Summary ---
Author Organization [employer] [facility] Address 75 [facility] 7t [place] [address] Care Team Providers Care Service Crew Leader Name Role Phone [place], Génesis REDD Primary Care Provider Lela Anderson Unavailable Shruti Burton MD Unavailable [phone] Rafael Plascencia MD Unavailable Cara Keen Unavailable Kulwinder Salmon MD Unavailable [phone] Effie Castañeda MD Unavailable Reason for Visit * Reason Onset Date Comments antibiotic pre treatment 06/06/2023 Encounter Details Date Type Department Care Team (Late st Contact Info) Description 06/06/2023 Telephone [facility] ADULT DENTAL 230 [place] [address] Sandra Driscoll DDS 230 [place], [place] [phone] antibiotic pre treatment Social History Tobacco Use [...] through My Chart on the medical side. Sebd Teacher Bharat came to put in request. He has an appt on 06/26/2023. He stating that his surveillance system monitor recommends he take antibiotic priorto dental treatment. Can script be sent DR documented in this encounter Plan of Treatment Upcoming Encounters Date Type Department Care Team (Late st Contact Info) Description 07/27/2025 2:00 PM EST Office Visit [facility] MEDICINE 230 [place] [address] Génesis Bruno MD [address] [place] [address] documented as of this encounter Visit Diagnoses Not on filedocumented in this encounter Care Teams Service Crew Leader Relationship Specialty Start Date End Date Génesis Bruno MD [address] [place] [address] PCP - General Family Medicine 09/15/[address] [facility] 3rd [place] [address] Gastroenterology 08/19/24 Shruti Burton MD [address] [place] [address] [facility] [place] [address] Neurology 09/09/24 Rafael Plascencia MD [address] [place] [address] Cardiology 09/09/[address] [facility] 3rd [place] [address] Gastroenterology 09/17/24 Kulwinder Salmon MD 2 [facility] [address] [place] [address] Ophthalmology 03/02/25 Effie Castañeda MD [address] [place] [address] [address] [place] [address] Urology 03/17/25 documented as of this encounter
--- OUTSIDE RECORDS SUMMARY | 2025-06-13 15:54 | XMS_ITS | Encounter Summary ---
Author Organization [facility] Address [address] [facility] [address] 7t [place] [address] Care Team Providers Care Machine Bunch Maker Name Role Phone [place], Génesis REDD Primary Care Provider [phone] Lela Anderson Unavailable Shruti Burton MD Unavailable Rafael Plascencia MD Unavailable [phone] Cara Keen Unavailable Kulwinder Salmon MD Unavailable [phone] Effie Castañeda MD Unavailable Reason for Visit * Reason Comments Med Refill Encounter Details Date Type Department Care Team (Late st Contact Info) Description 09/12/2024 Refill [facility] 230 [place], [place] [phone] Luanne Guadalupe MD 230 [place], [place] [phone] Loss of appetite; Depressive disorder Social History [...] Description 07/27/2025 2:00 PM EST Office Visit [facility] MEDICINE [address] [place] [address] Génesis Bruno MD [address] [place] [address] documented as of this encounter Visit Diagnoses Diagnosis Loss of appetite Anorexia Depressive disorder Depressive disorder, not elsewhere classified documented in this encounter Additional Health Concerns Assessment Noted Time PHQ-9 Depression Total Score: 0 03/24/20 24 2:18 PM EDT documented as of this encounter Care Teams Machine Bunch Maker Relationship Specialty Start Date End Date Génesis Bruno MD [address] [place] [address] PCP - General Family Medicine 09/15/18 Lela Anderson [address] 3rd [place] [address] Gastroenterology 08/19/24 Shruti Burton MD [address] [place] [address] [place] [address] Neurology 09/09/24 Rafael Plascencia MD 5[address] [place] [address] Cardiology 09/09/24 Cara Keen [address] 3rd [place] [address] Gastroenterology 09/17/24 Kulwinder Salmon MD [address] [place] [address] Ophthalmology 03/02/25 Effie Castañeda MD [address] [place] [address] Urology 03/17/25 documented as of this encounter
--- OUTSIDE RECORDS SUMMARY | 2025-06-13 15:54 | XMS_ITS | Encounter Summary ---
Author Organization [employer] [facility] Address [address] [facility] 7t [place] [address] Care Team Providers Care Outboard Motor Assembler Name Role Phone [place], Génesis REDD Primary Care Provider Lela Anderson Unavailable Shruti Burton MD Unavailable Rafael Plascencia MD Unavailable Cara Keen Unavailable uKlwinder Salmon MD Unavailable [phone] Effie Castañeda MD Unavailable Encounter Details Date Type Department Care Team (Late st Contact Info) Description 08/26/2023 Abstract [facility] ADULT DENTAL [address] [place] [address] Sanrda Driscoll DDS [address] [place], [place] [phone] Social History Tobacco Use Types Packs/Day Years [...] Description 07/27/2025 2:00 PM EST Office Visit [facility] MEDICINE [address] [place] [address] Génesis Bruno MD [address] [place] [address] documented as of this encounter Visit Diagnoses Not on filedocumented in this encounter Care Teams Outboard Motor Assembler Relationship Specialty Start Date End Date Génesis Bruno MD [address] [place] [address] PCP - General Family Medicine 09/15/18 Lela Anderson [address] [address] Gastroenterology 08/19/24 Shruti Burton MD [address] [place] [address] Neurology 09/09/24 Rafael Plascencia MD 6 [place] [address] Cardiology 09/09/24 Cara Keen [address] [address] Gastroenterology 09/17/24 Kulwinder Salmon MD 2 [facility] [address] [place] [address] Ophthalmology 03/02/25 Effie Castañeda MD [address] [place] [address] Urology 03/17/25 documented as of this encounter
--- OUTSIDE RECORDS SUMMARY | 2025-06-13 15:54 | XMS_ITS | Encounter Summary ---
Author Organization [employer] [facility] Address [address] [facility] 7t [place] [address] Care Team Providers Care Mainframe Systems Engineer Name Role Phone Génesis Bruno MD Primary Care Provider [phone] Lela Anderson Unavailable Shruti Burton MD Unavailable Rafael Plascencia MD Unavailable [phone] Cara Keen Unavailable Kulwinder Salmon MD Unavailable [phone] Effie Castañeda MD Unavailable Reason for Visit * Reason Comments Med Refill Encounter Details Date Type Department Care Team (Late st Contact Info) Description 06/11/2023 Refill [facility] MEDICINE [address] [place], [place] [phone] Génesis Bruno MD [address] [place], [place] [phone] Essential hypertension Social History Tobacco Use Types [...] Description 07/27/2025 2:00 PM EST Office Visit [facility] MEDICINE [address] [place] [address] Génesis Bruno MD [address] [place] [address] documented as of this encounter Visit Diagnoses Diagnosis Essential hypertension Unspecified essential hypertension documented in this encounter Care Teams Mainframe Systems Engineer Relationship Specialty Start Date End Date Génesis Bruno MD [address] [place] [address] PCP - General Family Medicine 09/15/18 Lela Anderson 11 [facility] 3rd [place] [address] Gastroenterology 08/19/24 Shruti Burton MD [address] [place] [address] [place] [address] Neurology 09/09/24 Rafael Plascencia MD [address] [place] [address] Cardiology 09/09/24 Cara Keen 11 [facility] 3rd [place] [address] Gastroenterology 09/17/24 Kulwinder Salmon MD 2 [facility] [address] [place] [address] Ophthalmology 03/02/25 Effie Castañeda MD [address] [place] [address] Urology 03/17/25 documented as of this encounter
--- OUTSIDE RECORDS SUMMARY | 2025-06-13 15:54 | XMS_ITS | Encounter Summary ---
Author Organization [employer] [facility] Address [address] [facility] 7t [place] [address] Care Team Providers Care Tail Ripper Name Role Phone [place], Génesis REDD Primary Care Provider [phone] Lela Anderson Unavailable Shruti Burton MD Unavailable Rafael Plascencia MD Unavailable [phone] Cara Keen Unavailable Kulwinder Salmon MD Unavailable [phone] Effie Castañeda MD Unavailable Encounter Details Date Type Department Care Team (Late st Contact Info) Description 08/17/2024 Orders Only [facility] MEDICINE [address] [place], [place] [phone] Luanne Guadalupe MD [address] [place], [place] [phone] Social History Tobacco Use Types Packs/Day Years [...] Description 07/27/2025 2:00 PM EST Office Visit [facility] MEDICINE [address] [place] [address] Génesis Bruno MD [address] [place] [address] documented as of this encounter Visit Diagnoses Not on filedocumented in this encounter Additional Health Concerns Assessment Noted Time PHQ-9 Depression Total Score: 0 03/24/20 24 2:18 PM EDT documented as of this encounter Care Teams Tail Ripper Relationship Specialty Start Date End Date Génesis Bruno MD [address] [place] [address] PCP - General Family Medicine 09/15/18 Lela Anderson [address] 3rd [place] [address] Gastroenterology 08/19/24 Shruti Burton MD [address] [facility] [address] [place] [address] Neurology 09/09/24 Rafael Plascencia MD [address] [place] [address] Cardiology 09/09/24 Cara Keen [address] 3rd [place] [address] Gastroenterology 09/17/24 Kulwinder Salmon MD [address] [place] [address] Ophthalmology 03/02/25 Effie Castañeda MD [address] [place] [address] Urology 03/17/25 documented as of this encounter
--- OUTSIDE RECORDS SUMMARY | 2025-06-13 15:54 | XMS_ITS | Encounter Summary ---
Author Organization [employer] [facility] Address [address] [facility] 7t [place] [address] Care Team Providers Care Ab Initio Etl Developer Name Role Phone Génesis Bruno MD Primary Care Provider [phone] Lela Anderson Unavailable Shruti Burton MD Unavailable [phone] Rafael Plascencia MD Unavailable [phone] Cara Keen Unavailable Kulwinder Salmon MD Unavailable [phone] Effie Castañeda MD Unavailable Reason for Visit * Reason Comments Med Refill Encounter Details Date Type Department Care Team (Late Contact Info) Description 10/10/2022 Refill [facility] MEDICINE [address] [place] [phone] Génesis Bruno MD [address] [place] [phone] Benign prostatic hyperplasia, unspecified whether lower urinary [...] 2:00 PM EST Office Visit [facility] [address] [place] [address] [place] [address] Génesis Bruno MD [address] [place] [address] documented as of this encounter Visit Diagnoses Diagnosis Benign prostatic hyperplasia, unspecified whether lower urinary tract symptoms present documented in this encounter Care Teams Ab Initio Etl Developer Relationship Specialty Start Date End Date Génesis Bruno MD [address] [place] [address] PCP - General Family Medicine 09/15/18 Lela Anderson [address] [facility] 3rd [place] [address] Gastroenterology 08/19/24 Shruti Burton MD [address] [place] [address] Neurology 09/09/24 Rafael Plascencia MD [address] [place] [address] Cardiology 09/09/24 Cara Keen [address] [facility] 3rd [place] [address] Gastroenterology 09/17/24 Kulwinder Salmon MD 2 [facility] [address] [place] [address] Ophthalmology 03/02/25 Effie Castañeda MD [address] [place] [address] Urology 03/17/25 documented as of this encounter
--- OUTSIDE RECORDS SUMMARY | 2025-06-13 15:54 | XMS_ITS | Encounter Summary ---
Author Organization [employer] [facility] Address [address] [facility] 7t [place] [address] Care Team Providers Care Chain Sales Representative Name Role Phone [place], Génesis REDD Primary Care Provider Lela Anderson Unavailable Shruti Burton MD Unavailable Rafael Plascencia MD Unavailable Cara Keen Unavailable Kulwinder Salmon MD Unavailable [phone] Effie Castañeda MD Unavailable Reason for Visit * Reason Comments Med Refill Encounter Details Date Type Department Care Team (Late st Contact Info) Description 10/06/2023 Refill [facility] ADULT DENTAL [address] [place] [address] Sandra Driscoll DDS [address] [place] [address] Social History Tobacco Use Types Packs/Day Years [...] Description 07/27/2025 2:00 PM EST Office Visit [facility] MEDICINE [address] [place] [address] Génesis Bruno MD 230 [place] [address] documented as of this encounter Visit Diagnoses Not on filedocumented in this encounter Care Teams Chain Sales Representative Relationship Specialty Start Date End Date Génesis Bruno MD 230 [place] [address] PCP - General Family Medicine 09/15/18 Lela Anderson 11 [facility] 3rd [place] [address] Gastroenterology 08/19/24 Shruti Burton MD [address] [place] [address] Neurology 09/09/24 Rafael Plascencia MD [address] [place] [address] Cardiology 09/09/24 Cara Keen 11 [facility] 3rd [place] [address] Gastroenterology 09/17/24 Kulwinder Salmon MD 2 [facility] [address] [place] [address] Ophthalmology 03/02/25 Effie Castañeda MD [address] [place] [address] Urology 03/17/25 documented as of this encounter
--- OUTSIDE RECORDS SUMMARY | 2025-06-13 15:54 | XMS_ITS | Clinical Summary ---
Author Organization [facility] Address [address] [place] [address] Care Team Providers Care Carpet Installation Specialist Name Role Phone KianaGénesis omalley MD Primary Care Provider [phone] Lela Anderson Unavailable Shruti Burton MD Unavailable Rafael Plascencia MD Unavailable Cara Keen Unavailable Kulwinder Salmon MD Unavailable [phone] Effie Castañeda MD Unavailable Allergies No known active allergies Medications triamcinolone (Kenalog) 0.1 % creamIndications :Dry skin dermatitis Apply topically if needed in the morning and at bedtime (pain and swelling). 30 g 2 4 Active Alpha Lipoic Xm-Nbadtb-Zikbee n (Biotin-Keratin- Alpha Lipoic Ac) 50-5-10 MG capsuleIndicatio ns:Dietary deficiency Active Ferrous Sulfate Dried (High Potency Iron) 65 MG tabletIndication s:Dietary deficiency Active Qchv-Vslvb-WJT-B oswellia-Vit D (GLUCOSAMINE CHONDROITIN + D3 PO)Indications:D [...] for erectile dysfunction. 10 tablet 3 5 12/03/19 27 Active Additional Information Patient not taking.Reported on 05/03/2025 GARLIC 1500 POIndications:Di etary deficiency Take by mouth. Active tadalafil (Cialis) 20 MG tabletIndication s:Erectile dysfunction, unspecified erectile dysfunction type Take 1 tablet (20 mg) by mouth if needed each day for erectile dysfunction. 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 -seen by Dr. Ferreira 05/2025 Plan is to recheck free testosterone along with LH and FSH fasting in a.m.. Further workup based on the above Assessment & Plan (04/14/2025 11:34 AM EDT): Recent labs revealed Testosterone <300 and elevated PSA, given its is >4 will defer treatment plan to Urologist whom pt is already established with prior to continuing testosterone therapy. Orders: Testosterone, Total, males (Adult), IA; Future Tremor of both outstretched hands 03/24/2024 Overview [...] LDLCHOLCAL 117 (H) 03/26/2024 -continue lifestyle modification Cardiac risk counseling 01/07/2024 Overview (04/14/2025): Calculated [...] 04/14/25 -eye care facilitated by [facility] in [place] and Dr. Salmon -dental home is [facility] -health care proxy given 03/24/24 Assessment & Plan (04/14/2025 11:34 AM EDT): -next physical exam due after 04/14/25 -eye care facilitated by [facility] in [place] and Dr. Salmon -dental home is [facility] -health care proxy given 03/24/24 Assessment & Plan (03/24/2024 2:43 PM EDT): -next physical exam due after 03/24/25 -eye care facilitated by [facility] in [place] -dental home is [facility] -health care proxy given 03/24/24 Other male [...] valve 04/15/2019 Overview (02/18/2024): -Patient followed at [facility] with Dr. Lincoln Plascencia DO. Seen 02/17/24 recommend follow up 1 year Assessment & Plan (04/14/2025 11:34 AM EDT): -Patient followed at [facility] with Dr. Lincoln Plascencia DO. Seen 02/17/24 recommend follow up 1 year Assessment & Plan (03/24/2024 2:36 PM EDT): -Patient followed at [facility] with Dr. Lincoln Plascencia DO. Seen 02/17/24 recommend follow up 1 year Ventricular septal defect 04/15/2019 Overview (09/22/2024): Seen by cardiology 03/2021, no concerns. -Patient followed at [facility] with Dr. Lincoln Plascencia DO. Seen 02/17/24 recommend follow up 1 year Assessment & Plan (04/14/2025 11:34 AM EDT): Seen by cardiology 03/2021, no concerns. -Patient followed at [facility] with Dr. Lincoln Plascencia DO. Seen 02/17/24 recommend follow up 1 year Assessment & Plan (09/22/2024 3:22 PM EST): Seen by cardiology 03/2021, no concerns. -Patient followed at [facility] with Dr. Lincoln Plascencia DO. Seen 02/17/24 recommend follow up 1 year Essential hypertension 01/14/2019 Overview (03/16/2025): -Doing well on current medication, on goal. -referred to [facility] 09/2021 -Continue amlodipine 5mg daily by cardiology -Patient followed at [facility] with Dr. Lincoln Plascencia DO. Seen 03/10/25. [...] current medication, at goal today. -referred to [facility] 09/2021 -Continue amlodipine 5mg daily by cardiology -Patient followed at [facility] with Dr. Lincoln Plascencia DO. Seen 03/10/25. [...] on current medication, on goal. -referred to [facility] 09/2021 -Continue amlodipine 5mg daily by cardiology -Patient followed at [facility] with Dr. Lincoln Plascencia DO. Seen 02/17/24 [...] on current medication, on goal. -referred to [facility] 09/2021 -Continue amlodipine 5mg daily by cardiology -Patient followed at [facility] with Dr. Lincoln Plascencia DO. [...] urinating without problems -still follows with Urologist Resolved Problems Problem Noted Date Diagnosed Date Resolved Date Boil 05/03/2025 06/02/2025 Assessment & Plan (05/03/2025 10:29 PM EDT): Noted small boil aprox 1 cm in left side of lower mandibula for the past 3 days per pt No drainage -advised warm compresses -if persisit in next 1-2 days to take Doxycycline BID x 5 days Dietary deficiency 09/22/2024 Overview (09/22/2024): Appetite improved, doing better exercising more. -continue medications as prescribed. Assessment & Plan (04/14/2025 11:34 AM EDT): Appetite improved, doing better exercising more. -continue medications as prescribed. Assessment & Plan (09/22/2024 3:41 PM EST): Appetite improved, doing better exercising more. -continue medications as prescribed. Elevated LFTs 09/05/2024 06/02/2025 Overview (04/14/2025): Lab Results Component Value Date [...] following up with anyone. 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 Referral [...] following up with anyone. 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 Referral [...] following up with anyone. 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 Referral [...] Autoimmune labs 09/10/24 normal. Appetite lost 08/16/2024 06/02/2025 Overview (09/09/2024): I have been losing my [...] f/u with PCP Dry skin dermatitis 08/16/2024 06/02/20 Assessment & Plan (08/16/2024 4:55 PM EST): Apply BID on affected area no more than 2 weeks Encounter for hepatitis C sc reening test for low risk patient 03/24/2024 09/09/2024 Physical exam 03/24/2024 09/09/2024 Encounter for HIV pre-exposure prophylaxis 03/24/2024 06/02/2025 Overview (09/22/2024): -pt agrees to want to [...] been in the past -ordered PrEP 03/24/24 Dental caries 10/30/2023 02/18/2024 Dental calculus 10/07/2023 02/18/2024 Localized gingival recession 10/07/2023 02/18/2024 Missing teeth, acquired 10/07/2023 06/0 01/2024 Colon polyps 06/05/2023 02/18/2024 Heart murmur 06/05/2023 02/18/2024 Recurrent right inguinal hernia 06/05/2023 02/18/2024 Overview (06/05/2023): With Dr. Duenas 02/2021. Depressive disorder 09/30/2012 06/02/20 25 Encounters Date Type Department Care Team Description 06/01/2025 Orders Only [facility] [address] Génesis Bruno MD ALEC (obstructive sleep apnea) (Primary Dx) 05/04/2025 Results Follow-Up [place] [address] Luanne Perez MD Iron And Total Iron Binding Capacity, Ferritin, C-reactive Protein, Additional followed-up results: 05/03/2025 1:30 PM EDT Office Visit [place] [address] Luanne Perez MD Other fatigue (Primary Dx); Boil 05/03/2025 Travel 04/30/2025 Travel 04/29/2025 Telephone [place] [address] Génesis Bruno MD 04/26/2025 Orders Only [place] [address] Génesis Bruno MD Hypogonadism in male (Primary Dx) 04/25/2025 Orders Only GENERIC EXTERNAL DATA DEPARTMENT Provider, Generic External Data Renal cyst (Primary Dx) 04/18/2025 Telephone [place] [address] Génesis Bruno MD Faxed Result to Urologist 04/14/2025 9:15 AM EDT Office Visit [place] [address] Génesis Bruno MD Ventricular septal defect (Primary Dx); Essential hypertension; Dyslipidemia; Bicuspid aortic valve; Elevated LFTs; Benign prostatic hyperplasia without lower urinary tract symptoms; Elevated PSA; Hypogonadism in male; Dietary deficiency; Cardiac risk counseling; Positive depression screening; Right ear impacted cerumen; Other specified health status; Impacted cerumen of right ear 04/14/2025 Travel 04/13/[address] [address] Génesis Bruno MD CHART PREP 04/12/[address] [phone] Génesis Bruno MD 04/07/2025 Patient Outreach [address] [phone] Génesis Bruno MD Pre-visit Planning (Pre-visit planning - LVM ) 04/07/2025 Travel from Last 3 Months Immunizations Immunization Administration [...] Description 07/27/2025 2:00 PM EST Office Visit [facility] [address] [place] [address] Génesis Bruno MD [address] [place], [place] [phone] Health Maintenance Due Date Last Done Comments [...] Procedure Name Priority Date/Time Associated Diagnosis Comments US BLADDER Routine 06/13/2025 2:17 PM EDT TESTOSTERONE, FREE (DIALYSIS) AND TOTAL,MS Routine 06/01/2025 10:01 AM EDT ALEC (obstructive sleep apnea) LH Routine 06/01/2025 10:01 AM EDT ALEC (obstructive sleep apnea) FSH Routine 06/01/2025 10:01 AM EDT ALEC (obstructive sleep apnea) CORTISOL RANDOM Routine 06/01/2025 10:01 AM EDT ALEC (obstructive sleep apnea) ECG 12-LEAD Routine 05/03/2025 3:38 PM EDT Other fatigue JHONY SCREEN, IFA, W/REFL TITER AND PATTERN Routine [...] 04/14/2025 9:52 AM EDT Hypogonadism in male HEMOGLOBIN A1C Routine 08/16/2024 1:44 PM EST [...] Recently Relevant to Health Maintenance Results * US BLADDER (06/13/2025 2:17 PM EDT) Anatomical Region Laterality Modality Abdomen Ultrasound 06/13/2025 2:17 PM EDT Narrative 06/13/2025 2:56 PM EDT [address] [address] Ultrasound Report Signed Patient: Sukhjinder Chambers MR#: [id number] : 1955 Acct:[id number] Age/Sex: 70 / M ADM Date: 06/13/25 Loc: HO.US Attending Dr: Effie Foster MD Ordering Physician: Effie Foster MD Date of Service: 06/13/25 Procedure(s): US bladder Accession Number(s): [id number] cc: Effie Foster MD; Génesis Bruno MD Reason for Exam: R68.82 - Decreased libido EXAMINATION: US BLADDER HISTORY: R68.82 - Decreased libido COMPARISON: There are no prior studies available for comparison. FINDINGS: Sonographic examination of the urinary bladder was performed before and after voiding. Before voiding, the urinary bladder measured 9.0 x 6.5 x 7.9, for an estimated volume of 242 mL. After voiding, the urinary bladder measured 6.9 x 5.9 x 7.9, for an estimated volume of 168 mL. The bladder is trabeculated. There may be a small posterior diverticulum. Bilateral ureteral jets are identified. The prostate measures 4.6 x 1.6 x 3.9 cm, for an estimated volume of 39.8 mL. US/US bladder IMPRESSION: 1. Trabeculated bladder with a possible small posterior diverticulum. 2. Post void bladder residual of 168 mL. 3. Prostate volume of 39.8 mL. Electronically signed by: Beto Hughes MD 06/13/2025 02:53 PM EDT Dictated By: Beto Hughes MD Signed By: <Electronically signed by Beto Hughes MD in OV> 06/13/25 1453 DD/ 1417 TD/TT: 06/13/25 1432 Metallurgical Laboratory Assistant: Procedure Note Donotuseinterpreter, Image - 06/13/[address] [address] Ultrasound Report Signed Patient: Sukhjinder Chambers PMR#: [id number] : 4Acct:[id number] Age/Sex: 70 / MADM Date: 06/13/25 Loc: HO.US Attending Dr: Effie Foster MD Ordering Physician: Effie Foster MD Date of Service: 06/13/25 Procedure(s): US bladder Accession Number(s): [id number] cc: Effie Foster MD; Génesis Bruno MD Reason for Exam: R68.82 - Decreased libido EXAMINATION: US BLADDER HISTORY: R68.82 - Decreased libido COMPARISON: There are no prior studies available for comparison. FINDINGS: Sonographic examination of the urinary bladder was performed before and after voiding. Before voiding, the urinary bladder measured 9.0 x 6.5 x 7.9, for an estimated volume of 242 mL. After voiding, the urinary bladder measured 6.9 x 5.9 x 7.9, for an estimated volume of 168 mL. The bladder is trabeculated. There may be a small posterior diverticulum. Bilateral ureteral jets are identified. The prostate measures 4.6 x 1.6 x 3.9 cm, for an estimated volume of 39.8 mL. US/US bladder IMPRESSION: 1. Trabeculated bladder with a possible small posterior diverticulum. 2. Post void bladder residual of 168 mL. 3. Prostate volume of 39.8 mL. Electronically signed by: Beto Hughes MD 06/13/2025 02:53 PM EDT RP Dictated By: Beto Hughes MD Signed By: <Electronically signed by Beto Hughes MD in OV> 06/13/25 1453 DD/ 1417 TD/TT: 06/13/25 1432 Metallurgical Laboratory Assistant: [facility] External Provider IMG US PROCEDURES Final Result * Cortisol Random (06/01/2025 10:01 AM EDT) Cortisol Random 11.6 ug/dL [facility] Comment:Reference Range*: Be fore 10 am 6.2-19.4 ug/dL After 5 pm 2.3-11.9 ug/dL*Please interpret above results accordingly.This test was performed using the Kite[employer] chemiluminescentmethod. Values obtained from different assay methods cannotbe used interchangeably.Patients receiving fludrocortisone, prednisolone orprednisone may show artificially elevated cortisol valuesdue to cross-reactivity. 06/01/2025 10:0 1 AM EDT 06/01/2025 10:01 AM EDT us Generic External Data Provider LAB BLOOD ORDERAB LES Final Result [facility] [address] [place] [address] [phone] * Testosterone, Free (Dialysis) And Total, MS (06/01/2025 10:01 AM EDT) Testosterone, Total 332 250 - 1100 ng/dL [facility] Comment:Men with clinically significant hypogonadalsymptoms and testosterone values repeatedly inthe range of the 200-300 ng/dL or less, maybenefit from testosterone treatment afteradequate risk and benefits counseling.For additional information, please refer tohttp://education.[employer]/faq/DkbokOntovmqlpydpPHTULFORX722(This link is being provided for informational/educational purposes only.)This test was developed and its analytical performancecharacteristics have been determined by [employer] [place]. It hasnot been cleared or approved by the U.S. Food and DrugAdministration. This assay has been validated pursuantto the CLIA regulations and is used for clinicalpurposes. Testosterone, Free 59.8 30.0 - 135.0 pg/mL [facility] Comment:This test was develo ped and its analytical performancecharacteristics have been determined by [employer] [place]. It hasnot been cleared or approved by the U.S. Food and DrugAdministration. This assay has been validated pursuantto the CLIA regulations and is used for clinicalpurposes.THIS TEST WAS PERFORMED AT:[facility]/[facility] [id number] [place] [id number] NEWMAN MD,PHD 06/01/2025 10:0 1 AM EDT 06/01/2025 10:01 AM EDT us Generic External Data Provider LAB BLOOD ORDERAB LES Final Result Performing Organization Address City/[facility]/ZIP Co de Phone Number [facility] [address] [place] [phone] * LH (06/01/2025 10:01 AM EDT) Lutenizing Hormone 1.6 1.6 - 15.2 mIU/mL [facility] Comment:THIS TEST WAS PERFOR MED AT:[facility] [address] [id number] HORVATH MD 06/01/2025 10:0 1 AM EDT 06/01/2025 10:01 AM EDT us Generic External Data Provider LAB BLOOD ORDERAB LES Final Result Performing Organization Address [facility] Co de Phone Number [facility] [address] [place] [address] [phone] * FSH (06/01/2025 10:01 AM EDT) Follicle Stimulating Hormone 4.8 1.4 - 12.8 mIU/mL [facility] Comment:THIS TEST WAS PERFOR MED AT:[facility] [address] [id number] HORVATH MD 06/01/2025 10:0 1 AM EDT 06/01/2025 10:01 AM EDT us Generic External Data Provider LAB BLOOD ORDERAB LES Final Result Performing Organization Address [facility]/ZIP Co de Phone Number [facility] [address] [place] [phone] * ECG 12 lead (05/03/2025 3:38 PM [...] 2:44 PM EDT) Syphilis Screen Nonreactive Nonreactive [facility] Blood 05/03/2025 2:44 PM EDT 05/03/2025 4:17 PM EDT us Luanne Pearl MD LAB BLOOD ORDERAB LES Final Result [facility] [address] [place] [phone] * Vitamin D, 25-Hydroxy, Total, Immunoassay (05/03/2025 2:44 PM EDT) Pathologist [facility] Vitamin D 25-OH Total 63.3 >30 ng/mL [facility] Comment: Health Based Reference Values*< 20 ng/mL Zlzeswxcv18-48 ng/mL Insufficient> 30 ng/mL Sufficient*Katie BABIN. N [...] ORDERAB LES Final Result Performing Organization Address City/[facility]/ZIP Co de Phone Number [facility] [address] [place] [phone] * Vitamin B12 (Cobalamin) and Folate Panel, Serum (05/03/2025 2:44 PM EDT) Vitamin B12 741 200 - 900 pg/mL [facility] Comment:NORMAL 200-900 PG/ML INDETERMINATE 160-199 PG/ML DEFICIENT < 160 PG/ML Folate 12.7 > or = 4.0 ng/mL [facility] Comment:Reference Values:> o r = 4.0 ng/mL< 4.0 ng/mL suggests folate deficiency Methotrexate, aminopterin and folinic acid(leucovorin) are chemotherapeutic agents whose molecularstructures are similar to folate; therefore, the Architectfolate assay cannot be used for patients using these drugs. Blood 05/03/2025 2:44 PM EDT 05/03/2025 4:17 PM EDT us Luanne Pearl MD LAB BLOOD ORDERAB LES Final Result Performing Organization Address [facility] Co de Phone Number [facility] [address] [place] [phone] * TSH with Reflex to Free T4 (05/03/2025 2:44 PM EDT) TSH reflex Free T4 1.07 0.32 - 4.0 uIU/mL [facility] Blood 05/03/2025 2:44 PM EDT 05/03/2025 4:17 PM EDT us Luanne Pearl MD LAB BLOOD ORDERAB LES Final Result Performing Organization Address City/[facility]/ZIP Co de Phone Number [facility] [address] [place] [phone] * Hepatitis C Antibody with Reflex to HCV, RNA, Quantitative, Real-Time PCR (05/03/2025 2:44 PM EDT) [facility] Hepatitis C Antibody Nonreactive Nonreactive [facility] Comment:Antibodies to HCV no t detected; does not exclude early acuteHCV infection. Blood Venous blood specimen / Unknown 05/03/2025 2:44 PM EDT 05/03/2025 4:17 PM EDT Luanne Pearl MD LAB BLOOD ORDERAB LES Final Result Performing Organization Address [facility]/ZIP Co de Phone Number [facility] [address] [place] [phone] * Iron And Total Iron Binding Capacity (05/03/2025 2:44 PM EDT) [facility] Iron 120 45 - 160 mcg/dL [facility] Total Iron Binding Capacity 266 228 - 428 mcg/dL [facility] Percent Iron Saturation 45 15 - 50 % [facility] Unsaturated Iron Binding 146 ug/dL [facility] Blood Venous blood specimen / Unknown 05/03/2025 2:44 PM EDT 05/03/2025 4:17 PM EDT Luanne Pearl MD LAB BLOOD ORDERAB LES Final Result Performing Organization Address City/[facility]/ZIP Co de Phone Number [facility] [address] [place] [phone] * Hepatitis B surface antigen, EIA (05/03/2025 2:44 PM EDT) [facility] Hepatitis B Surface Ag Negative Negative [facility] Blood Venous blood specimen / Unknown 05/03/2025 2:44 PM EDT 05/03/2025 4:17 PM EDT Luanne Pearl MD LAB BLOOD ORDERAB LES Final Result Performing Organization Address [facility] Co de Phone Number [facility] [address] [place] [phone] * HIV-1/2 Antigen and Antibodies, Fourth Generation, with Reflexes (05/03/2025 2:44 PM EDT) HIV AB/AG Nonreactive Nonreactive [facility] Comment:HIV-1 p24 Ag and/or HIV-1/HIV-2 Ab not detected.A test result that is nonreactive does not exclude thepossibility of exposure to or infection with HIV-1 and/orHIV-2. Nonreactive results in this assay for individualswith prior exposure to HIV-1 and/or HIV-2 may be due toantigen and antibody levels that are below the limit ofdetection of this assay.The [employer] HIV Ag/Ab Combo assay result andsupplemental assay results should be interpreted inconjunction with the patient's clinical presentation,history and other laboratory results. If the results areinconsistent with clinical evidence, additional testing issuggested to confirm the result. Blood Venous blood specimen / Unknown 05/03/2025 2:44 PM EDT 05/03/2025 4:17 PM EDT us Luanne Pearl MD LAB BLOOD ORDERAB LES Final Result Performing Organization Address [facility]/ZIP Co de Phone Number [facility] [address] [place] [phone] * Sed Rate by Modified Westergren (05/03/2025 2:44 PM EDT) Erythrocyte Sedimentation Rate 4 0 - 15 MM/HR [facility] Comment:Patients with polycy themia and many hemoglobin abnormalitiesmay have depressed sed rates whereas patients with anemiamay have elevated sed rates. Blood Venous blood specimen / Unknown 05/03/2025 2:44 PM EDT 05/03/2025 4:17 PM EDT us Luanne Pearl MD LAB BLOOD ORDERAB LES Final Result [facility] [address] [place] [phone] * (ABNORMAL) CBC (05/03/2025 2:44 PM EDT) White Blood Count 6.8 4.8 - 10.8 X10*3/uL [facility] Red Blood Count 4.48(L) 4.60 - 5.80 X10*6/uL [facility] Hemoglobin 14.0 14.0 - 18.0 g/dl [facility] Hematocrit 41.4(L) 42.0 - 52.0 % [facility] Mean Corpuscular Volume 92.4 80.0 - 98.0 fL [facility] Mean Corpuscular Hemoglobin 31.3 27.0 - 33.0 pg [facility] Mean Corpuscular HGB Conc 33.8 31.0 - 36.0 g/dl [facility] Red Cell Distribution Width 12.5 11.0 - 16.0 % [facility] Platelet Count 217 160 - 400 X10*3/uL [facility] Mean Platelet Volume 10.5 9.4 - 12.4 fL [facility] NRBC Pct Auto 0.0 0.0 - 0.2 /100WBC [facility] NRBC Abs Auto 0.000 0.0 - 0.012 X10*3/uL [facility] Blood Venous blood specimen / Unknown 05/03/2025 2:44 PM EDT 05/03/2025 4:17 PM EDT us Luanne Pearl MD LAB BLOOD ORDERAB LES Final Result [facility] [address] [place] [phone] * C-reactive Protein (05/03/2025 2:44 PM EDT) C Reactive Protein <0.10 < or = 0.50 mg/dL [facility] Blood Venous blood specimen / Unknown 05/03/2025 2:44 PM EDT 05/03/2025 4:17 PM EDT Luanne Pearl MD LAB BLOOD ORDERAB LES Final Result [facility] [address] [place] [phone] * JOHNY Screen,IFA, with Reflex to Titer and Pattern (05/03/2025 2:44 PM EDT) Pathologist [facility] Anti Nuclear Antibody Screen NEGATIVE NEGATIVE [facility] Comment:JOHNY IFA is a first [...] clinicallysuspected inflammatory myopathies.AC-0: NegativeInternational Consensus on JOHNY Patterns(https://doi.org/10.1515/gnnm-4561-3019)For additional information, please refer tohttp://education.[email or web address]/faq/EWB147(This link is being provided for informational/educational purposes only.)THIS TEST WAS PERFORMED AT:[facility] [place] [id number] HORVATH MD JOHNY Titer TNP [facility] JOHNY Pattern TNP [facility] JOHNY TITER 2 (REF LAB) TNP [facility] JOHNY Pattern 2 [facility] JOHNY TITER 3 [facility] J[facility]NY PATTERN 3 [facility] Blood Venous blood specimen / Unknown 05/03/2025 2:44 PM EDT 05/03/2025 4:17 PM EDT us Luanne Pearl MD LAB BLOOD ORDERAB LES Final Result Performing Organization Address [facility] Co de Phone Number [facility] [address] [place] [phone] * Ferritin (05/03/2025 2:44 PM EDT) Ferritin 143 20 - 250 ng/mL [facility] Blood Venous blood specimen / Unknown 05/03/2025 2:44 PM EDT 05/03/2025 4:17 PM EDT us Luanne Pearl MD LAB BLOOD ORDERAB LES Final Result Performing Organization Address [facility] Co de Phone Number [facility] [address] [place] [phone] * CT Abdomen Pelvis w/ Contrast (04/25/2025 9:39 AM EDT) Anatomical Region Laterality Modality Body, Pelvis, Abdomen Computed T omography 04/25/2025 9:39 AM EDT Narrative 04/25/2025 11:05 AM EDT [address] [address] [address] Scan Report Signed Patient: Sukhjinder Chambers MR#: [id number] : 1955 Acct:[id number] Age/Sex: 70 / M ADM Date: 04/25/25 Loc: .ED Attending Dr: Ordering Physician: Izabel Mackenzie Date of Service: 04/25/25 Procedure(s): CT abdomen pelvis w IV con Accession Number(s): [id number] cc: Génesis Bruno MD; Izabel Mackenzie Report Number: [id number]: Total DLP = 517.00 mGy-cm EXAMINATION: CT [...] 04/25/25 1101 DD/ 0939 TD/TT: 04/25/25 1039 Metallurgical Laboratory Assistant: Procedure Note Donotuseinterpreter, Image - 04/25/[address] [place] [address] [address] Scan Report Signed Patient: Sukhjinder Chambers PMR#: [id number] : 4Acct:[id number] Age/Sex: 70 / MADM Date: 04/25/25 Loc: HO.ED Attending Dr: Ordering Physician: Izabel Mackenzie Date of Service: 04/25/25 Procedure(s): CT abdomen pelvis w IV con Accession Number(s): [id number] cc: Génesis Bruno MD; Izabel Mackenzie Report Number: [id number]: Total DLP = 517.00 mGy-cm EXAMINATION: CT [...] 04/25/25 1101 DD/ 0939 TD/TT: 04/25/25 1039 Metallurgical Laboratory Assistant: us [facility] External Provider IMG CT PROCEDURES Final Result * Urinalysis, Complete, with Reflex to Culture (04/25/2025 8:56 AM EDT) Color Urine Yellow [facility] Appearance Urine Clear [facility] PH 7.5 5.0 - 9.0 [facility] Glucose Urine UA Negative Negative mg/dL [facility] Urine Blood Negative Negative [facility] Specific [place] - Urine <=1.005 1.005 - 1.025 [facility] Urine Protein Negative Neg-Trace mg/dL [facility] Urine Ketones Negative Negative mg/dL [facility] Nitrite Urine Negative Negative [facility] Leukocyte Esterase Urine Negative Negative [facility] RBC Urine 0-2 0 - 2 /HPF [facility] Urine WBC 0-5 0 - 5 /HPF [facility] Urine Squamous Epithelial Cell 0-2 0 - 2 /HPF [facility] Urine Bacteria None Seen None Seen [facility] Hyaline Casts, Urine 0-2 0 - 2 /LPF [facility] 04/25/2025 8:56 AM EDT 04/25/2025 8:58 AM EDT Narrative [facility] - 04/25/2025 9:09 AM EDT [id number], Clean Catch Generic External Data Provider LAB URINE ORDERAB LES Final Result Performing Organization Address City/[facility] Co de Phone Number [facility] [address] [place] [phone] [phone] * Slide Review (04/25/2025 4:17 AM EDT) Slide Review VERIFIED [facility] 04/25/2025 4:17 AM EDT 04/25/2025 4:20 AM EDT Generic External Data Provider LAB BLOOD ORDERAB LES Final Result Performing Organization Address [facility] Co de Phone Number [facility] [address], [place] [phone] * (ABNORMAL) CBC auto differential (04/25/2025 4:17 AM EDT) White Blood Count 12.3(H) 4.8 - 10.8 X10*3/uL [facility] Red Blood Count 4.56(L) 4.60 - 5.80 X10*6/uL [facility] Hemoglobin 14.8 14.0 - 18.0 g/dl [facility] Hematocrit 40.6(L) 42.0 - 52.0 % [facility] Mean Corpuscular Volume 89.0 80.0 - 98.0 fL [facility] Mean Corpuscular Hemoglobin 32.5 27.0 - 33.0 pg [facility] Mean Corpuscular HGB Conc 36.5(H) 31.0 - 36.0 g/dl [facility] Red Cell Distribution Width 12.3 11.0 - 16.0 % [facility] Platelet Count 220 160 - 400 X10*3/uL [facility] Mean Platelet Volume 9.5 9.4 - 12.4 fL [facility] Neutrophils Percent Auto 91.2(H) 45 - 73 % [facility] Imm Gran Pct Auto 0.6(H) 0.0 - 0.4 % [facility] Lymphocytes Percent Auto 4.4(L) 20 - 40 % [facility] Monocytes Percent Auto 3.3 2 - 11 % [facility] Eosinophils Percent Auto 0.2 0 - 4 % [facility] Basophils Percent Auto 0.3 0 - 2 % [facility] NRBC Pct Auto 0.0 0.0 - 0.2 /100WBC [facility] Neutrophils Absolute Auto 11.3(H) 2.0 - 8.3 x10*3/uL [facility] Imm Gran Abs Auto 0.07(H) 0.00 - 0.03 X10*3/uL [facility] Lymphocytes Absolute Auto 0.5(L) 1.2 - 4.9 X10*3/uL [facility] Monocytes Absolute Auto 0.4 0.1 - 1.2 X10*3/uL [facility] Eosinophils Absolute Auto 0.0 0.0 - 0.4 X10*3/uL [facility] Basophils Absolute Auto 0.0 0.0 - 0.2 X10*3/uL [facility] NRBC Abs Auto 0.000 0.0 - 0.012 X10*3/uL [facility] 04/25/2025 4:17 AM EDT 04/25/2025 4:20 AM EDT us Generic External Data Provider LAB BLOOD ORDERAB LES Edited Result - Final Performing Organization Address City/[facility]/ZIP Co de Phone Number [facility] [address] [place] [phone] * Lipase (04/25/2025 4:17 AM EDT) Pathologist [facility] Lipase 11 8 - 78 U/L [facility] 04/25/2025 4:17 AM EDT 04/25/2025 4:20 AM EDT us Generic External Data Provider LAB BLOOD ORDERAB LES Final Result Performing Organization Address [facility]/ZIP Co de Phone Number [facility] [address] [place] [phone] * (ABNORMAL) Comprehensive Metabolic Panel (04/25/2025 4:17 AM EDT) Sodium 138 135 - 145 mmol/L [facility] Potassium 3.9 3.3 - 5.1 mmol/L [facility] Chloride 103 96 - 108 mmol/L [facility] Carbon Dioxide 24 22 - 29 mmol/L [facility] Anion Gap 15 12 - 20 [facility] Urea Nitrogen (BUN) 19(H) 9 - 16 mg/dL [facility] Creatinine, Serum 0.71 0.5 - 1.4 mg/dL [facility] Creatinine Clr Calc Pharmacy 101.6 [facility] Comment:eGFR (calculated fro m the MDRD study equation) and eCrCl(calculated from the Cockcroft-Gault equation) are based ondifferent parameters and may not yield comparable results.If eCrCl result is absurd, please check patient'sheight/weight. Estimated Glomerular Filt Rate >60 [facility] Comment:Chronic Kidney Disea se: Estimated GFR < 60 mL/min/1.48a5Eiphhy Kidney Disease: Estimated GFR < 15 mL/min/1.73m2 Glucose 156(H) 60 - 115 mg/dL [facility] Calcium 9.1 8.4 - 10.2 mg/dL [facility] Bilirubin, Total 1.0 0.0 - 1.0 mg/dL [facility] Aspartate Amino Transferase 32 5 - 37 U/L [facility] Alanine Aminotransferase 22 0 - 40 U/L [facility] Total Protein 7.1 6.5 - 8.0 g/dL [facility] Albumin Level 4.6 3.5 - 5.0 g/dL [facility] Alkaline Phosphatase 77 39 - 117 U/L [facility] 04/25/2025 4:17 AM EDT 04/25/2025 4:20 AM EDT us Generic External Data Provider LAB BLOOD ORDERAB LES Final Result [facility] [address] [place] [phone] * (ABNORMAL) Testosterone, Total, males (Adult), [place] (04/14/2025 9:52 AM EDT) Testosterone, Total 199(A) 250 - 1100 ng/dL [facility] Comment:Men with clinically significant hypogonadalsymptoms and testosterone values repeatedly inthe range of the 200-300 ng/dL or less, maybenefit from testosterone treatment afteradequate risk and benefits counseling.For additional information, please refer tohttp://education.[email or web address]/faq/[email or web address](This link is being provided for informational/educational purposes only.)This test was developed and its analytical performancecharacteristics have been determined by [employer] [place], [place]. It hasnot been cleared or approved by the U.S. Food and DrugAdministration. This assay has been validated pursuantto the CLIA regulations and is used for clinicalpurposes.THIS TEST WAS PERFORMED AT:[email or web address] [place] [address]BCOWMKJPATRICIA NEWMAN MD,PHD Blood Venous blood specimen / Unknown 04/14/2025 9:52 AM EDT 04/14/2025 10:54 AM EDT us Génesis Bruno MD LAB BLOOD ORDERABLES Final Result [facility] [address] [place] [phone] * (ABNORMAL) Lipid Panel, Standard (04/14/2025 9:52 AM EDT) Triglycerides 81 <150 mg/dL [facility] Comment:Desirable Triglyceri de: less than 150 mg/dLBorderline High Triglyceride 150-199 mg/dLHigh Triglyceride: 200-499 mg/dLVery High Triglyceride: greater than or equal to 5OO mg/dL Cholesterol 187 <200 mg/dL [facility] Comment:Desirable Cholestero l: less than 200 mg/dLBorderline High Cholesterol: 200-239 mg/dLHigh Cholesterol: greater than 239 mg/dL LDL Cholesterol Calculated 124(H) <100 mg/dL [facility] Comment:Desirable LDL: less than 100 mg/dLNear Optimal/Above Optimal LDL: 110- 129 mg/dLBorderline High LDL: 130-159 mg/dLHigh LDL: 160-189 mg/dLVery High LDL: greater than or equal to 190 mg/dL HDL Cholesterol 47 >40 mg/dL [facility] Comment:Desirable HDL: great er than 40 mg/dL Note: This HDL assay may give artificially low results in patients with liver disease. Blood Venous blood specimen / Unknown 04/14/2025 9:52 AM EDT 04/14/2025 10:54 AM EDT Génesis Bruno MD LAB BLOOD ORDERABLES Final Result Performing Organization Address [facility] Co de Phone Number [facility] [address] [place] [phone] * Hemoglobin A1c (08/16/2024 1:44 PM EST) Hemoglobin A1c 5.8 <6.0 % [facility] Comment:Hemoglobin A1C Refer ence Range Adults: 4.8 - 6.0 % Non diabetic: < 6.0 % Goal: < 7.0 %Additional Action Suggested: > 8.0 %Note: Hemoglobin A1c results are invalid for patients with abnormal amounts of HbF. Blood transfusions may impact the HbA1c concentration in the patient sample. Estimated Average Glucose 120 mg/dL [facility] Comment:eAG = Estimated ave rage glucose which is %A1C expressed asaverage glucose, using the formula of the J6E-IibffeaGfmpict Glucose study (ADAG), Diabetes Care, Vol.31,#8,Aug. 2007 Blood Venous blood specimen / Unknown 08/16/2024 1:44 PM EST 08/16/2024 4:14 PM EST us Luanne Romero MD LAB BLOOD ORDERABLES Final Result Performing Organization Address [facility] Co de Phone Number [facility] [address] [place] [phone] * Hm Colonoscopy (05/14/2023) Colonoscopy Normal Normal Cece Huertas MD HEALTH MAINTENANCE Final Result from Last 3 Months or Most Recently Relevant to Health Maintenance Insurance [facility] [employer] (HMO D-SNP) SANGEETHA ODONNELL [id number] Care Teams Carpet Installation Specialist Relationship Specialty Start Date End Date [place], [place] Génesis [address] [place] [phone] PCP - General Family Medicine 09/15/18 Lela Anderson [address] [place] [address] 3rd Floor [place], [place] Gastroenterology 08/19/24 Shruti Burton MD [address] [place] [address] Dr Michael [place], [place] Neurology 09/09/24 Rafael Plascencia MD [address] [place] [address] Cardiology 09/09/24 Cara Keen [address] 3rd [place] [address] Gastroenterology 09/17/24 Kulwinder Salmon MD [address] [place] [address] Ophthalmology 03/02/25 Effie Castañeda MD [address] [place] [address] Urology 03/17/25
--- OUTSIDE RECORDS SUMMARY | 2025-06-13 15:54 | XMS_ITS | Encounter Summary ---
Author Organization [employer] Address [address] [facility] 7t [place] [address] Care Team Providers Care Career Development Coordinator Name Role Phone Mikado, Génesis REDD Primary Care Provider + [phone] Lela Anderson Unavailable Shruti Burton MD Unavailable Rafael Plascencia MD Unavailable [phone] Cara Keen Unavailable Kulwinder Salmon MD Unavailable [phone] Effie Castañeda MD Unavailable Encounter Details Date Type Department Care Team (Late st Contact Info) Description 05/04/2025 Results Follow-Up [facility] [address] [place] [address] Lunane Perez MD [address] [place] [address] Iron And Total Iron Binding Capacity, Ferritin, [...] Visit [facility] [address] [place] [address] Génesis Bruno MD [address] [place] [address] documented as of this encounter Visit Diagnoses Not on filedocumented in this encounter Additional Health Concerns Assessment Noted Time PHQ-9 Depression Total Score: 6 08/19/20 25 2:03 PM EDT documented as of this encounter Care Teams Career Development Coordinator Relationship Specialty Start Date End Date Génesis Bruno MD [address] [place] [address] PCP - General Family Medicine 09/15/18 Lela Anderson [address] 3rd [place] [address] Gastroenterology 08/19/24 Shruti Burton MD [address] [place] [address] Neurology 09/09/24 Rafael Placsencia MD [address] [place] [address] Cardiology 09/09/24 Cara Keen [address] 3rd [place] [address] Gastroenterology 09/17/24 Kulwinder Salmon MD 2 [facility] [address] [place] [address] Ophthalmology 03/02/25 Effie Castañeda MD [address] [place] [address] Urology 03/17/25 documented as of this encounter
--- OUTSIDE RECORDS SUMMARY | 2025-06-13 15:54 | XMS_ITS | Encounter Summary ---
Author Organization [employer] [facility] Address [address] [facility] 7t [place] [address] Care Team Providers Care Diplomatic Officer Name Role Phone Génesis Bruno MD Primary Care Provider Lela Anderson Unavailable Shruti Burton MD Unavailable [phone] Rafael Plascencia MD Unavailable [phone] Cara Keen Unavailable Kulwinder Salmon MD Unavailable [phone] Effie Castañeda MD Unavailable Encounter Details Date Type Department Care Team (Late st Contact Info) Description 05/20/2023 Abstract [facility] [address] [place], [place] [phone] Anthony Gonzalez DMD [address] [place], [place] [phone] Social History Tobacco Use Types Packs/Day Years [...] Office Visit [facility] [address] [place] [address] Génesis Bruno MD [address] [place] [address] documented as of this encounter Visit Diagnoses Not on filedocumented in this encounter Care Teams Diplomatic Officer Relationship Specialty Start Date End Date Génesis Bruno MD [address] [place] [address] PCP - General Family Medicine 09/15/18 Lela Anderson [address] [address] Gastroenterology 08/19/24 Shruti Burton MD [address] [place] [address] Neurology 09/09/24 Rafael Plascencia MD [address] [place] [address] Cardiology 09/09/24 Cara Keen [address] [address] Gastroenterology 09/17/24 Kulwinder Salmon MD 2 [facility] [address] [place] [address] Ophthalmology 03/02/25 Effie Castañeda MD [address] [place] [address] Urology 03/17/25 documented as of this encounter
--- OUTSIDE RECORDS SUMMARY | 2025-06-13 15:54 | XMS_ITS | Encounter Summary ---
Author Organization [employer] [facility] Address [address] [facility] 7t [place] [address] Care Team Providers Care Web Development Director Name Role Phone Génesis Bruno MD Primary Care Provider Lela Anderson Unavailable Shruti Burton MD Unavailable Rafael Plascencia MD Unavailable [phone] Cara Keen Unavailable Kulwinder Salmon MD Unavailable [phone] Effie Castañeda MD Unavailable Encounter Details Date Type Department Care Team (Late st Contact Info) Description 08/26/2023 Abstract [facility] [address] [place] [address] Ja Diaz DMD [address] [place] [address] Social History Tobacco Use Types Packs/Day Years [...] 07/27/2025 2:00 PM EST Office Visit [facility] [address] [place], [place] [phone] Génesis Bruno MD [address] [place] [address] documented as of this encounter Visit Diagnoses Not on filedocumented in this encounter Care Teams Web Development Director Relationship Specialty Start Date End Date Génesis Bruno MD [address] [place] [address] PCP - General Family Medicine 09/15/18 Lela Anderson [address] [facility] 3rd [place] [address] Gastroenterology 08/19/24 Shruti Burton MD [address] [place] [address] Neurology 09/09/24 Rafael Plascencia MD [address] [place] [address] Cardiology 09/09/24 Cara Keen [address] [facility] 3rd [place] [address] Gastroenterology 09/17/24 Kulwinder Salmon MD 2 [facility] [address] [place] [address] Ophthalmology 03/02/25 Effie Castañeda MD [address] [place] [address] Urology 03/17/25 documented as of this encounter
== END 2025-06-13 14:07 | disposition home or self-care (01) ==
LOC: HO.US 14:06
PROVIDERS: PCP Family Medicine; Visit Provider Urology
DX: R68.82 Decreased libido (principal)
CPT/HCPCS: 76857

== ENCOUNTER → 2025-06-13 14:08 | Outpatient (BNV) | payer OTHER, SELFPAY | PROVIDERS: PCP Family Medicine; Visit Provider Radiology Diagnostic Radiology | DX: N40.1 Benign prostatic hyperplasia with lower urinary tract symptoms (principal); N32.3 Diverticulum of bladder | CPT/HCPCS: 76857 ==

== ENCOUNTER 2025-07-01 15:05 | Outpatient (AMB) | payer OTHER, SELFPAY ==
--- NOTE | 2025-07-01 15:05 | A.OFFVIS_ITS ---
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 He is prescribed Cialis he had lab work done and ultrasound total testosterone on 06/01/2025 was 332 free testosterone 59.8 bladder ultrasound on June 13, 2025 prostate volume- 39.8 mL. PSA on 03/12/2025 was 4.09 ng/mL. In review of the chart a CT scan was ordered by another provider I have reviewed it kidneys are within normal limits, left renal cysts. 03/11/25 History of Present Illness - The patient is a 70-year-old male presenting with erectile dysfunction. - Erectile dysfunction has been a concern for the patient, who has tried generic tadalafil (Cialis) 20 mg, which was somewhat helpful but did not improve libido. - The patient reports a lack of energy and libido, which has not been addressed with previous medications. - Blood work in January did not include testosterone levels, which will be ordered during this visit. - The patient has a history of benign prostatic hyperplasia, previously managed with tamsulosin (Flomax), which he discontinued due to adverse effects on his libido. - The patient experiences nocturia, urinating 5 to 6 times per night, and reports a weak urinary stream. (AUA/BPH score 30) - A PSA screening in August showed a level of 3.92, which is at the upper limits of normal for his age. - The patient has a family history of prostate cancer; his father was diagnosed in his mid-60s and treated with radiation and hormones. - The patient states he underwent a prostate biopsy approximately 10 years ago due to elevated PSA levels, which returned normal results. Results - PSA level: 3.92 (August,) - Abdominal ultrasound: Right kidney negative for stones, left kidney with small septated cyst, negative for stones (08/27/24) Discussion Notes I discussed with the patient the management options for erectile dysfunction and BPH, including the use of daily low-dose tadalafil, We reviewed the importance of checking testosterone levels and other hormones to assess overall health. Digital rectal examination today- Prostate palpated, smooth mild to mod enlarged, no hard nodules palpated. The patient was informed about the follow-up plan, including a bladder/prostate US and rechecking PSA levels in six months. PFS Medical History Hypogonadism, testicular Colon polyps Kidney lesion COVID-19 vaccine series completed Anxiety Essential hypertension Obstructive sleep apnea BPH (benign prostatic hyperplasia) Depression Heart murmur Epilepsy Surgical History S/P right inguinal hernia repair (03/05/21) History of bilateral inguinal hernia repair History of eyelid surgery History of colonoscopy History of excision of lesion (10/21/11) History of prostate biopsy Family History Father Prostate cancer Lung cancer Mother Breast cancer Social History Household Members Other:: lives alone- no children Are you a primary transitional care liaison to a significant other at home: No Do you presently have visiting nurse or other home services: No Alcohol intake: current Alcohol intake frequency: holidays/special occasions only Patient Tobacco Use Status: Never used Tobacco Review of Systems Const All systems reviewed & are unremarkable except as noted in HPI and below Reports no additional complaints Eyes Reports no additional complaints ENT Reports no additional complaints Card Reports no additional complaints Resp Reports no additional complaints GI Reports no additional complaints Reports as per HPI Musc Reports no additional complaints Skin/Breast Reports system reviewed and no additional complaints, except as documented Neuro Reports no additional complaints Psych Reports no additional complaints Endo Reports no additional complaints Sawyer/Lymph Reports no additional complaints Aller/Immun Reports no additional complaints Telehealth Telehealth Telehealth Platform: Telephone Location of provider rendering services: practice address Location of patient: address on file Patient Identification confirmed using: Name, : Yes Telehealth method: voice only Patient verbally consented to treatment: Yes Patient verbally consented to billing insurance company: Yes Patient informed of any privacy concerns related to visit: Yes Minutes spent on Phone/Video with Pt.: 13 Results Reviewed Results Reviewed: Date of Service: 06/13/25 EXAMINATION: US BLADDER HISTORY: R68.82 - Decreased libido COMPARISON: There are no prior studies available for comparison. FINDINGS: Sonographic examination of the urinary bladder was performed before and after voiding. Before voiding, the urinary bladder measured 9.0 x 6.5 x 7.9, for an estimated volume of 242 mL. After voiding, the urinary bladder measured 6.9 x 5.9 x 7.9, for an estimated volume of 168 mL. The bladder is trabeculated. There may be a small posterior diverticulum. Bilateral ureteral jets are identified. The prostate measures 4.6 x 1.6 x 3.9 cm, for an estimated volume of 39.8 mL. IMPRESSION: 1. Trabeculated bladder with a possible small posterior diverticulum. 2. Post void bladder residual of 168 mL. 3. Prostate volume of 39.8 mL. Date of Service: 04/25/25 EXAMINATION: CT ABDOMEN PELVIS WITH IV CONTRAST HISTORY: severe abd pain, vomiting COMPARISON: Comparison is made with the prior examination dated 05/14/2021. TECHNIQUE: CT scan of the abdomen and pelvis was performed following administration of 85 mL Omnipaque 350 using standard departmental protocol. Coronal and sagittal reformatted images were generated and reviewed. Oral contrast material was not administered at the request of the referring physician. This CT exam was performed with one or more of the following dose reduction techniques: automated exposure control, adjustment of the mA and/or kV according to patient size, use of iterative reconstruction technique. DLP: 517 mGy-cm FINDINGS: LOWER CHEST: The visualized lung bases are clear. There is no pleural effusion. CARDIOVASCULATURE: The heart is normal in size. There is no pericardial effusion. LIVER: The liver is normal in size and contour. Again seen are scattered cysts within the liver measuring up to 12 mm in size. The hepatic and portal veins are patent. GALLBLADDER / BILE DUCTS: The gallbladder is unremarkable. There is no intra or extrahepatic biliary ductal dilatation. SPLEEN: The spleen is normal in size. No focal splenic lesion is identified. PANCREAS: The pancreas is unremarkable in appearance. ADRENAL GLANDS: Within normal limits. KIDNEYS/RETROPERITONEUM: No renal calculi are identified. There is no hydronephrosis. There is a 10 mm hyperdense lesion at the upper pole of the left kidney and a 2.5 cm hyperdense lesion at the lower pole, compatible with hyperdense cysts. These were present previously, although the lower pole lesion is slightly larger (previously 1.6 cm). LYMPH NODES: No abdominal or pelvic lymphadenopathy. VASCULATURE: The abdominal aorta is normal in caliber. MESENTERY/PERITONEUM: There is a small amount of free fluid in the pelvis. No masses. There is no free intraperitoneal gas. STOMACH: The stomach is collapsed, limiting evaluation. SMALL BOWEL: The small bowel is normal in caliber. COLON: There is diverticulosis of the descending and sigmoid colon, without evidence of diverticulitis. APPENDIX: The appendix is not seen, however no inflammatory changes are seen adjacent to the cecum. URINARY BLADDER/PELVIC ORGANS: The urinary bladder is unremarkable. The prostate is mildly enlarged. BONES / SOFT TISSUES: There are probable postsurgical changes in the right internal region without significant change from the prior study. There is degenerative disc disease of the spine. IMPRESSION: 1. Small amount of free fluid in the pelvis. Diverticulosis of the descending and sigmoid colon, without evidence of diverticulitis. 2. Left renal hyperdense cysts. The lower pole cyst is larger than on the prior study. Date of Service: 08/27/24 US ABDOMEN COMPLETE CLINICAL INFORMATION: Elevated LFTs with anorexia and unintentional weight loss. COMPARISON: CT abdomen and pelvis 05/14/2021. Ultrasound abdomen complete 02/28/2021. TECHNIQUE: Real-time imaging of the abdominal viscera. FINDINGS: PANCREAS: Visualized portions are unremarkable. ABDOMINAL AORTA: Partially obscured by bowel gas. There are atheromatous plaques of the aorta. INFERIOR VENA CAVA: Visualized portions are normal. LIVER: The liver is normal in size. The liver contour is normal. Increased echogenicity of the liver parenchyma, this can be seen in the setting of hepatic steatosis or liver parenchymal disease. There are liver cysts left lobe measure up to 9 mm and 10 mm, right lobe measure up to 8 mm. There is no intrahepatic biliary duct dilatation seen. GALLBLADDER: The gallbladder is physiologically distended without evidence of stones, sludge, polyps, wall thickening or pericholecystic fluid. COMMON BILE DUCT: Normal in caliber measuring 0.5 cm in diameter. RIGHT KIDNEY: No hydronephrosis or renal calculi. The kidney measures 11.4 cm in maximum dimension. LEFT KIDNEY: No hydronephrosis or renal calculi. The kidney measures 11.1 cm in maximum dimension. Cyst with septation upper pole 1.3 cm,. Lower pole obscured by bowel gas. These are commonly benign, no follow-up imaging is indicated. SPLEEN: The spleen measures 11.0 cm in maximum dimension. FREE FLUID: None. IMPRESSION: 1. Increased echogenicity of the liver parenchyma, this can be seen in the setting of hepatic steatosis or liver parenchymal disease. 2. There are small liver cysts, and left renal cysts no follow-up imaging is indicated. 3. Ultrasound has limited assessment for possible abdominal mass, if patient remain symptomatic consider correlation with follow-up cross-sectional imaging CT scan or MRI. Assessment & Plan Assessment & Plan (1) Erectile dysfunction: Code(s): N52.9 - Male erectile dysfunction, unspecified Category: Medical (2) BPH loc w urin obs/LUTS: Code(s): N40.1 - Benign prostatic hyperplasia with lower urinary tract symptoms Category: Medical (3) Low libido: Code(s): R68.82 - Decreased libido Category: Medical Plan Plan - Prescribe daily low-dose tadalafil for potential benefits for benign prostatic hyperplasia and ED. - Check testosterone levels and other relevant hormones to assess the underlying cause of erectile dysfunction. - PSA screening Medications: Refilled tadalafil (Cialis) 5 mg PO DAILY 90 tabs 3RF N40.1 - Benign prostatic hyperplasia with lower urinary tract symptoms Patient Instructions: The patient had an opportunity to ask questions regarding treatment plan. The patient expressed understanding and agreement with the above treatment plan. The patient is aware they should contact our office by phone for worsening of their current condition or the appearance of new symptoms. Compliance is encouraged with any medications and followup testing that is ordered. It is a privilege to be allowed the opportunity to participate in the urologic care of your patient. If you have any questions or concerns regarding treatment for the above conditions please do not hesitate to contact me. The office telephone contact is [phone]. This note is constructed in part using voice recognition software. While every effort has been made to ensure accuracy business operations consultant errors may have been included. Yours sincerely, Effie Foster MD Coding Level of Care Code Tele Est Pt Level 3 (48818) Diagnoses Erectile dysfunction N52.9 BPH loc w urin obs/LUTS N40.1 Low libido R68.82
== END 2025-07-01 16:28 | disposition home or self-care (01) ==
LOC: HO.HUSH 15:05
PROVIDERS: PCP Family Medicine; Visit Provider Urology
DX: N52.9 Male erectile dysfunction, unspecified (principal); N40.1 Benign prostatic hyperplasia with lower urinary tract symptoms; R68.82 Decreased libido
CPT/HCPCS: 99213